=== PATIENT | male | born 1950 | race Caucasian/White ===

== ENCOUNTER 2020-04-16 11:04 | Emergency (ER) | payer MEDICARE, OTHER, SELFPAY ==
[2020-04-16 11:10] VITALS: BP 130/57; PULSE 84; RESP 18; TEMP 37.6; O2SAT 95
--- NOTE | 2020-04-16 12:03 | ECG_ITS ---
Measurements Intervals [place] Rate: 81 P: 39 KS: 194 QRS: 65 QRSD: 75 T: 56 QT: 324 QTc: 378 Interpretive Statements SINUS RHYTHM EARLY PRECORDIAL R/S TRANSITION BORDERLINE ST-T WAVE ABNORMALITY- ANTEROLAT/INF LEADS BASELINE ARTIFACT- I, III, AVR, AVL BORDERLINE ECG Electronically Signed On 04-16-2020 13:02:10 [employer] by Jonh Jackson D.O.
[2020-04-16 12:05] VITALS: BP 133/59; PULSE 82; RESP 20; O2SAT 96
[2020-04-16 12:26] LABS: Add Urine Microscopic? YES; Appearance Urine Clear (Clear); Basophils Absolute Auto 0.01 K/mm3 (0.00-0.10); Basophils Percent Auto 0.2 % (0.0-1.0); Bilirubin Urine Negative (Negative); Blood Urine Negative (Negative); Color Urine Yellow (Yellow); Eosinophils Absolute Auto 0.03 K/mm3 (0.02-0.50); Eosinophils Percent Auto 0.6 % (1.0-6.0); Glucose Urine UA Negative (Negative); Hematocrit 41.3 % (37.0-46.0); Hemoglobin 13.2 g/dL (12.4-15.3); Immature Granulocyte Absolute 0.01 K/mm3 (0.00-0.00); Immature Granulocyte Percent A 0.2 % (0.0-0.0); Ketones Urine Trace (Negative); Leukocyte Esterase Ur Negative LEU/UL (Negative); Lymphocytes Absolute Auto 1.32 K/mm3 (1.10-4.50); Mean Corpuscular Hemoglobin 30.6 pg (27.0-31.0); Mean Corpuscular Volume 95.8 fL (78.0-102.0); Mean Platelet Volume 10.4 fl (8.7-11.0); Monocytes Absolute Auto 0.42 K/mm3 (0.10-0.90); Neutrophils Absolute Auto 3.5 K/mm3 (1.7-7.2); Nitrate Urine Negative (Negative); Platelet Count Result 161 K/mm3 (150-420); Protein Urine Negative (Negative); Red Blood Count 4.31 M/mm3 (4.70-6.10); Red Cell Distribution Width 13.8 % (11.6-14.4); Urobilinogen Urine 0.2 mg/dL (0.2-1.0); White Blood Count 5.3 K/mm3 (4.8-10.8); pH Urine 5.5 (5.0-8.0)
[2020-04-16 12:32] LABS: Bacteria Urine Trace /hpf; RBC Urine 0-2 /hpf (0-2); Squamous Epithelial Cell Urine Few /hpf (Few); WBC Urine 0-3 /hpf (0-3)
[2020-04-16 12:45] LABS: BNP 5.2 pg/mL (0-100)
[2020-04-16 12:46] LABS: Alanine Aminotransferase 52 U/L (16-63); Albumin Level 2.7 g/dL (3.4-5.0); Alkaline Phosphatase 49 U/L (46-116); Anion Gap 11 mmol/L (8-16); Aspartate Amino Transferase 44 U/L (15-37); Bilirubin,Total 0.2 mg/dL (0.00-1.00); Blood Urea Nitrogen 21 mg/dL (7-18); Calcium 8.2 mg/dL (8.5-10.1); Carbon Dioxide 23 mmol/L (21-32); Chloride 100 mmol/L (98-108); Estimated CRCL calculation 62 ml/min; Estimated Glomerular Filt Rate > 60; Glucose 68 mg/dL (70-99); Osmolality Calculated 279 mOsm/kg (285-295); Potassium 3.4 mmol/L (3.5-5.1); Sodium 134 mmol/L (136-145); Troponin I < 0.02 ng/mL (0.00-0.056)
[2020-04-16 13:15] VITALS: BP 137/60; PULSE 85; RESP 20; O2SAT 95
--- NOTE | 2020-04-16 13:47 | ED.WEAKNESS ---
HPI - Weakness General Chief complaint: Weakness Stated complaint: Ambulance Source: patient Mode of arrival: EMS Limitations: no limitations History of Present Illness HPI Narrative: The patient came in with weakness he had recently been in the [facility] for cellulitis of his right lower leg. He was given antibiotics for this he was sent home with doxycycline and Keflex. He was sent home on April 09 he is now finished with his antibiotics. He has had loose stools for several days. He has continued to take his hydrochlorothiazide in spite of loose stools MD Complaint: generalized weakness Onset (ago): day(s) Location: generalized Migration: none Severity: moderate Relieving factors: none Exacerbating factors: none Context: new medication Associated symptoms: other (fatigue) Related Data Home Medications Medication Instructions Recorded Confirmed amlodipine 2.5 mg PO DAILY 04/16/20 04/16/20 baclofen 10 mg PO TID 04/16/20 04/16/20 cetirizine 10 mg PO DAILY 04/16/20 04/16/20 gabapentin 900 mg PO TID 04/16/20 04/16/20 glipizide 5 mg PO BID 04/16/20 04/16/20 hydrochlorothiazide 25 mg PO DAILY 04/16/20 04/16/20 levothyroxine 150 mcg PO DAILY 04/16/20 04/16/20 meloxicam 15 mg PO DAILY 04/16/20 04/16/20 metformin 1,000 mg PO QPM 04/16/20 04/16/20 nystatin 1 applic TOPICAL TID 04/16/20 04/16/20 omeprazole 20 mg PO DAILY 04/16/20 04/16/20 oxybutynin chloride 10 mg PO DAILY 04/16/20 04/16/20 ropinirole 2 mg PO HS 04/16/20 04/16/20 rosuvastatin 10 mg PO DAILY 04/16/20 04/16/20 tramadol 50 mg PO Q6H PRN 04/16/20 04/16/20 Allergies Allergy/AdvReac Type Severity Reaction Status Date / Time No Known Allergies Allergy Verified 04/16/20 11:12 Review of Systems Constitutional: Comments: fatigue Gastrointestinal: Comments: multiple loose stools Exam Narrative: Exam Narrative: Alert oriented no acute distress Const: Orientation/consciousness: patient oriented x3 HENMT: Head: normal to inspection Eyes: Conjunctivae: conjunctivae normal EOM: EOMs intact bilaterally Neck: Neck: normal visual inspection Chest: Chest palpation & inspection: normal inspection of the chest Resp: Effort & Inspection: normal respiratory effort Auscultation: clear to auscultation bilaterally Cardio: Rate: regular rate Rhythm: regular rhythm Other: At first he seemed to be irregular, EKG showed Sinus rythum GI: GI Palp: Yes Soft to palpation Percussion: Yes other (non tender ) Skin: General skin exam: normal color Neuro: General: patient oriented x3 and moves all extremities Extrem: General: normal to inspection Other: cellulitis has cleared Psych: Mental Status: mental status grossly normal Thought content: Yes Normal thought content present Course Course Emergency Course: Labs were drawn, a urine was sent. EKG was normal. His potassium was 3.4. He was given 40 mEq of potassium and Flagyl 500 mg p.o. We will send him home with a prescription for Flagyl 500 mg 3 times a day I have asked him to stop his hydrochlorothiazide for the next 2 weeks. We will make the prescription for Flagyl good for 2 weeks we have asked him to decrease his glipizide for the next 2 weeks to 1/2 tablet twice a day. I will ask him to follow [facility] within the next week. Vital Signs Vital signs: Vital Signs Temperature 37.6 C H 04/16/20 11:10 Pulse Rate 84 04/16/20 11:10 Respiratory Rate 18 04/16/20 11:10 Blood Pressure 130/57 L 04/16/20 11:10 Pulse Oximetry 95 04/16/20 11:10 Temperature 37.6 C H 04/16/20 11:10 Pulse Rate 84 04/16/20 11:10 Respiratory Rate 18 04/16/20 11:10 Blood Pressure 130/57 L 04/16/20 11:10 Pulse Oximetry 95 04/16/20 11:10 MDM - Weakness MDM Narrative Medical decision making narrative: I was concerned he might have C Diff. We also ruled out an UT and acute kidney injury. Lab Data Result diagrams: 04/16/20 12:22 04/16/20 12:22 L
[2020-04-16 14:15] VITALS: BP 123/53; PULSE 82; RESP 20; O2SAT 96
[2020-04-16] MEDS: POTASSIUM CHLORIDE 20 MEQ TABLET 40 MEQ PO (14:25)
[2020-04-16] MEDS: metroNIDAZOLE 250 MG TABLET 500 MG PO (14:26)
== END 2020-04-16 15:15 | disposition home or self-care (01) ==
PROVIDERS: Emergency Provider Emergency Medicine
DX: A04.72 Enterocolitis due to Clostridium difficile, not specified as recurrent (principal)
CPT/HCPCS: 36415; 80053; 81001; 83880; 84484; 85025; 87324; 93005; 99283; 99284; A9270

== ENCOUNTER 2024-05-25 14:28 | Outpatient (CLI) | payer MEDICARE, SELFPAY ==
--- OUTSIDE RECORDS SUMMARY | 2024-05-25 14:34 | XMS_ITS | Continuity of Care Document ---
Author Name [facility] Organization [facility] Care Team Providers Care Hematology Oncology Consultant Name Role Phone [facility] Unavailable Unavailable Problems Combined list of problems from Department of Defense and Veterans Affairs facilities. It does not include entries that were removed or entered in error. Problem Status Onset Date Problem Type Date of Resolution Comments Source Benign essential hypertension Active Condition [facility] Closed fracture of distal left fibula Active Condition [facility] Diabetes mellitus Active Condition [facility] Family history of malignant neoplasm of skin (SNOMED CT 342357793) Active Condition [facility] Hypothyroidism Active Condition [facility] Low back pain Active Condition [facility] Morbid obesity Active Condition [facility] Morbid obesity (SNOMED CT 767017156) Active Condition [facility] Obstructive sleep apnea Active Condition [facility] Obstructive sleep apnea syndrome (SNOMED CT 10369864) Active Condition [facility] Osteoarthritis of hip (SNOMED CT 455791799) Active Condition [facility] Osteoarthritis of hip (SNOMED CT 199844648) Active Condition [facility] Pain in lower limb (SNOMED CT 83825833) Active Condition [facility] Psoriasis (SNOMED CT 8187120) Active Condition [facility] Restless legs (SNOMED CT 92021586) Active Condition [facility] 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 [facility] Unresolved Active Condition [facility] Unresolved Active Condition [facility] Walking disability Active Condition [facility] Diagnosis: ICD-10-CM S82.62XS Disp fx of lateral malleolus of left fibula, sequela Active Diagnosis [facility] Diagnosis: ICD-10-CM H01.009 Unspecified blepharitis unspecified eye, unspecified eyelid Active Diagnosis [facility] Diagnosis: ICD-10-CM M54.59 Other low back pain Active Diagnosis [facility] Diagnosis: ICD-10-CM Z13.5 Encounter for screening for eye and ear disorders Active Diagnosis [facility] Diagnosis: ICD-10-CM M47.26 Other spondylosis with radiculopathy, lumbar region Active Diagnosis [facility] Diagnosis: ICD-10-CM E03.9 Hypothyroidism, unspecified Active Diagnosis [facility] Diagnosis: ICD-10-CM I10 Essential (primary) hypertension Active Diagnosis [facility] Diagnosis: ICD-10-CM M54.50 Low back pain, unspecified Active Diagnosis [facility] Diagnosis: ICD-10-CM 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 Medication Details Route Status Patient Instructions Prescription Expires Prescription Number Last Dispense Date Ordering Provider Order Date Order Qty Source AMLODIPINE BESYLATE 2.5MG TAB TAKE THREE TABLETS BY MOUTH ONCE A DAY FOR HEART/BL OOD PRESSURE ORAL ACTIVE 03/04/2025 [id number] 4 DASHAWN DOUGLAS 2023 270 [facility] AMLODIPINE BESYLATE 2.5MG TAB TAKE THREE TABLETS BY MOUTH ONCE A DAY FOR HEART/BL OOD PRESSURE ORAL DISCONT INUED 10/04/2024 [id number] 4 DASHAWN DOUGLAS 2023 270 [facility] AMLODIPINE BESYLATE 2.5MG TAB TAKE THREE TABLETS BY MOUTH ONCE A DAY FOR HEART/BL OOD PRESSURE ORAL DISCONT INUED 03/01/2024 [id number] 4 DASHAWN DOUGLAS 2022 90 [facility] CETIRIZINE HCL 10MG TAB TAKE ONE TABLET BY MOUTH ONCE A DAY ORAL ACTIVE STELLADASHAWN MCKEON 2013 [facility] DULOXETINE HCL 30MG CAP,EC TAKE ONE CAPSULE BY MOUTH ONCE A DAY FOR MUSCULOS KELETAL PAIN DO NOT ABRUPTLY DISCONTI NUE MEDICATI ON. ORAL 03/25/2024 [id number] 4 DASHAWN DOUGLAS 2022 30 [facility] DULOXETINE HCL 60MG CAP,EC TAKE ONE CAPSULE BY MOUTH ONCE A DAY FOR MUSCULOS KELETAL PAIN DO NOT ABRUPTLY DISCONTI NUE MEDICATI ON. ORAL ACTIVE 03/01/2025 [id number] 4 JACKIE PENA 2023 90 [facility] DULOXETINE HCL 60MG CAP,EC TAKE ONE CAPSULE BY MOUTH ONCE A DAY FOR MUSCULOS KELETAL PAIN DO NOT ABRUPTLY DISCONTI NUE MEDICATI ON. ORAL DISCONT INUED 06/11/2024 [id number] JACKIE PENA 2022 90 [facility] EYELID CLEANSER,EY E SCRUB PAD USE/APPL Y PAD BOTH EYES ONCE A DAY FOR EYELID HYGIENE *EXTERNA L USE ONLY* REMOVE CONTACT LENSES PRIOR TO USE. DO NOT TOUCH EYE DIRECTLY . OPHTHA LMIC ACTIVE 02/04/2025 [id number] 4 JOSHUA JACKSON 2023 30 [facility] GABAPENTIN 300MG CAP TAKE THREE CAPSULES BY MOUTH THREE TIMES A DAY FOR PAIN ORAL ACTIVE 08/16/2024 [id number] 4 DASHAWN DOUGLAS 2023 810 [facility] GABAPENTIN 300MG CAP TAKE THREE CAPSULES BY MOUTH THREE TIMES A DAY FOR PAIN ORAL DISCONT INUED 01/26/2024 [id number] 3 DASHAWN DOUGLAS 2022 810 [facility] GLIPIZIDE 5MG TAB TAKE ONE TABLET BY MOUTH TWO TIMES A DAY BEFORE MEALS FOR DIABETES . TAKE 30 MINUTES BEFORE EATING. ORAL 04/07/2024 [id number] 4 DASHAWN DOUGLAS 2022 180 [facility] HYDROCHLORO THIAZIDE 25MG TAB TAKE ONE TABLET BY MOUTH ONCE A DAY FOR BLOOD PRESSURE ORAL ACTIVE 12/21/2024 [id number] 4 DASHAWN DOUGLAS 2023 90 [facility] HYDROCHLORO THIAZIDE 25MG TAB TAKE ONE TABLET BY MOUTH ONCE A DAY FOR BLOOD PRESSURE ORAL DISCONT INUED 11/05/2023 [id number] 4 DASHAWN DOUGLAS 2022 90 [facility] LEVOTHYROXI NE NA 125MCG TAB (SYNTHROID) TAKE ONE TABLET BY MOUTH EVERY MORNING BEFORE A MEAL FOR HYPOTHYR OIDISM FOR THYROID. TAKE 30 MINUTES BEFORE FOOD. TAKE SEPARATE LY FROM ALL OTHER MEDICATI ONS. ORAL DISCONT INUED 12/01/2023 [id number] 4 DASHAWN DOUGLAS 2023 14 [facility] LEVOTHYROXI NE NA 125MCG TAB (SYNTHROID) TAKE ONE TABLET BY MOUTH EVERY MORNING BEFORE A MEAL FOR HYPOTHYR OIDISM FOR THYROID. TAKE 30 MINUTES BEFORE FOOD. TAKE SEPARATE LY FROM ALL OTHER MEDICATI ONS. ORAL DISCONT INUED 06/18/2024 [id number] 4 DASHAWN DOUGLAS 2023 30 [facility] LEVOTHYROXI NE NA 125MCG TAB (SYNTHROID) TAKE ONE TABLET BY MOUTH EVERY MORNING BEFORE A MEAL FOR HYPOTHYR OIDISM FOR THYROID. TAKE 30 MINUTES BEFORE FOOD. TAKE SEPARATE LY FROM ALL OTHER MEDICATI ONS. ORAL 01/20/2024 [id number] 4 DASHAWN DOUGLAS 2023 14 [facility] LIDOCAINE 5% PATCH APPLY 1 PATCH TO SKIN SITE ONCE A DAY APPLY PATCH AND PRESS FIRMLY FOR 10-15 SECONDS. KEEP ON FOR 12 HOURS THEN REMOVE PATCH FOR 12 HOURS. APPLY TO LOW BACK APPLY PATCH AND PRESS FIRMLY FOR 10-15 SECONDS. KEEP ON FOR 12 HOURS THEN REMOVE PATCH FOR 12 HOURS. APPLY TO LOW BACK TRANSD ERMAL ACTIVE 06/11/2024 [id number] 3 JACKIE PENA 2022 30 [facility] MELOXICAM 15MG TAB TAKE ONE TABLET BY MOUTH ONCE A DAY WITH FOOD FOR PAIN ORAL DISCONT INUED 09/15/2023 [id number] 3 DASHAWN DOUGLAS 2022 90 [facility] MELOXICAM 15MG TAB TAKE ONE TABLET BY MOUTH ONCE A DAY WITH FOOD FOR PAIN ORAL 05/24/2024 [id number] 4 DASHAWN DOUGLAS 2023 90 [facility] METFORMIN HCL 500MG 24HR TAB,SA TAKE TWO TABLETS BY MOUTH ONCE A DAY WITH EVENING MEAL ORAL ACTIVE 12/21/2024 [id number] 4 DASHAWN DOUGLAS 2023 60 [facility] METFORMIN HCL 500MG 24HR TAB,SA TAKE TWO TABLETS BY MOUTH ONCE A DAY WITH EVENING MEAL ORAL DISCONT INUED 03/01/2024 [id number] 4 DASHAWN DOUGLAS 2022 180 [facility] OMEPRAZOLE 20MG CAP,EC TAKE ONE CAPSULE BY MOUTH EVERY MORNING BEFORE A MEAL TO LOWER STOMACH ACID. TAKE 30 MINUTES PRIOR TO FOOD. ORAL ACTIVE 12/21/2024 [id number] 4 DASHAWN DOUGLAS 2023 90 [facility] OMEPRAZOLE 20MG CAP,EC TAKE ONE CAPSULE BY MOUTH EVERY MORNING BEFORE A MEAL TO LOWER STOMACH ACID. TAKE 30 MINUTES PRIOR TO FOOD. ORAL DISCONT INUED 09/15/2023 [id number] 4 DASHAWN DOUGLAS MIKE 2022 90 [facility] OXYBUTYNIN CL 10MG TAB,SA TAKE ONE TABLET BY MOUTH ONCE A DAY FOR BLADDER. SWALLOW WHOLE, DO NOT CRUSH OR CHEW. ORAL ACTIVE 07/14/2024 [id number] 4 STELLADASHAWN MCKEON 2023 30 [facility] OXYBUTYNIN CL 10MG TAB,SA TAKE ONE TABLET BY MOUTH ONCE A DAY FOR BLADDER. SWALLOW WHOLE, DO NOT CRUSH OR CHEW. ORAL DISCONT INUED 12/12/2023 [id number] 3 STELLADASHAWN MCKEON 2022 30 [facility] ROPINIROLE HCL 2MG TAB TAKE ONE TABLET BY MOUTH AT BEDTIME ORAL ACTIVE 12/21/2024 [id number] 4 DOUGLASDASHAWN MCKEON 2023 90 [facility] ROPINIROLE HCL 2MG TAB TAKE ONE TABLET BY MOUTH AT BEDTIME ORAL DISCONT INUED 11/05/2023 [id number] 4 DASHAWN DOUGLAS MIKE 2022 90 [facility] TRAMADOL HCL 50MG TAB TAKE 1 TABLET BY MOUTH FOUR TIMES A DAY NEEDED FOR PAIN FOR PAIN ORAL DISCONT INUED 09/01/2023 [id number] 3 Kristy CADENA [facility] 2022 120 [facility] Allergies, Adverse Reactions, Alerts Combined list of allergies from Department of Defense and Veterans Affairs facilities. It does not include entries that were removed or entered in error. Substance Category Reaction Severity Reaction type Status Date Reported Comments Source LIPITOR Propensity to adverse reactions to drug (finding) Muscle pain active 6 [facility] METFORMIN Propensity to adverse reactions to drug (finding) Diarrhea active 3 [facility] PRAVASTATIN Propensity to adverse reactions to drug (finding) Cramp active 6 [facility] Immunizations Combined list of available immunizations from the Department of Defense and Veterans Affairs facilities. Immunization Series Date Given Administered By Site Reaction Lot Number CVX Code Drug Seismograph Operator Status Comments Source INFLUENZA, UNSPECIFIED FORMULATION 2021 88 complet ed [facility] ZOSTER RECOMBINANT 2 2020 187 complet ed [facility] ZOSTER RECOMBINANT 1 2020 187 complet ed [facility] PNEUMOCOCCAL POLYSACCHARID E PPV23 2015 33 complet ed [facility] PNEUMOCOCCAL CONJUGATE PCV 13 2014 133 complet ed [facility] TDAP 2014 115 complet ed Right Deltoid [facility] ZOSTER LIVE 2012 121 complet ed [facility] Results Combined list of recent chemistry, hematology and other laboratory results from Department of Defense and Veterans Affairs, ranging from 15 months to all on record, depending upon the facility. Order Name Results Value Reference Range Date Interpretation Specimen Comments Source URINALYSI S (STL) COLOR OF URINE Yellow 03/01 Specimen Type: URINE No comment entered. Ordering Provider: JULIO CÉSAR DOUGLAS Report Released Date/Time: Mar 01, 2023 07:56 AM Reporting Lab: [facility] [address] Performing Lab: [facility] [id number] [place] [address] DIVISION URINALYSI S (STL) BILIRUBIN. TOTAL [PRESENCE] IN URINE BY TEST STRIP Negativ emg/dL 03/01 Specimen Type: URINE No comment entered. Ordering Provider: JULIO CÉSAR DOUGLAS Report Released Date/Time: Mar 01, 2023 07:56 AM Reporting Lab: [facility] [address] Performing Lab: [facility] [id number] [place] [address] [facility] URINALYSI S (STL) PH OF URINE BY TEST STRIP 6.0 5.0 - 8.0 03/01 Specimen Type: URINE No comment entered. Ordering Provider: JULIO CÉSAR DOUGLAS Report Released Date/Time: Mar 01, 2023 07:56 AM Reporting Lab: [facility] [place] [address] Performing Lab: [facility] [facility] URINALYSI S (STL) LEUKOCYTES [#/AREA] IN URINE SEDIMENT BY MICROSCOPY HIGH POWER FIELD 2 /[HPF] 0 - 5 03/01 Specimen Type: URINE No comment entered. Ordering Provider: JULIO CÉSAR DOUGLAS Report Released Date/Time: Mar 01, 2023 07:56 AM Reporting Lab: [facility] [place] [address] Performing Lab: [facility] DIVISION URINALYSI S (STL) ERYTHROCYT ES [#/VOLUME] IN URINE SEDIMENT BY MICROSCOPY HIGH POWER FIELD 2 /[HPF] 0 - 5 03/01 Specimen Type: URINE No comment entered. Ordering Provider: JULIO CÉSAR DOUGLAS Report Released Date/Time: Mar 01, 2023 07:56 AM Reporting Lab: [facility] [place] [address] Performing Lab: [facility] DIV[facility] URINALYSI S (STL) APPEARANCE OF URINE Clear 03/01 Specimen Type: URINE No comment entered. Ordering Provider: JULIO CÉSAR DOUGLAS Report Released Date/Time: Mar 01, 2023 07:56 AM Reporting Lab: [facility] [place] [address] Performing Lab: [facility] DIVISION URINALYSI S (STL) NITRITE [PRESENCE] IN URINE BY TEST STRIP Negativ emg/dL 03/01 Specimen Type: URINE No comment entered. Ordering Provider: JULIO CÉSAR DOUGLAS Report Released Date/Time: Mar 01, 2023 07:56 AM Reporting Lab: [facility] [place] [address] Performing Lab: [facility] [facility] URINALYSI S (STL) EPITHELIAL CELLS [#/AREA] IN URINE SEDIMENT BY MICROSCOPY LOW POWER FIELD <1/[HPF ] 0 - 5 03/01 Specimen Type: URINE No comment entered. Ordering Provider: JULIO CÉSAR DOUGLAS Report Released Date/Time: Mar 01, 2023 07:56 AM Reporting Lab: [facility] [place] [address] Performing Lab: [facility] DIVISION URINALYSI S (STL) MUCUS [PRESENCE] IN URINE SEDIMENT BY LIGHT MICROSCOPY OCC/[LP F] 03/01 Specimen Type: URINE No comment entered. Ordering Provider: JULIO CÉSAR DOUGLAS Report Released Date/Time: Mar 01, 2023 07:56 AM Reporting Lab: [facility] [place] [address] Performing Lab: [facility] DIVISION URINALYSI S (STL) GLUCOSE [MASS/VOLU ME] IN URINE BY TEST STRIP Normalm g/dL 03/01 Specimen Type: URINE No comment entered. Ordering Provider: JULIO CÉSAR DOUGLAS Report Released Date/Time: Mar 01, 2023 07:56 AM Reporting Lab: [facility] [place] [address] Performing Lab: [facility] DIVISION URINALYSI S (STL) PROTEIN [MASS/VOLU ME] IN URINE BY TEST STRIP 20 mg/dL - 20 03/01 H Specimen Type: URINE No comment entered. Ordering Provider: JULIO CÉSAR DOUGLAS Report Released Date/Time: Mar 01, 2023 07:56 AM Reporting Lab: [facility] [place] [address] Performing Lab: [facility] DIVISION URINALYSI S (STL) URN.UROBIL INOGEN Normalm g/dL 03/01 Specimen Type: URINE No comment entered. Ordering Provider: JULIO CÉSAR DOUGLAS Report Released Date/Time: Mar 01, 2023 07:56 AM Reporting Lab: [facility] [place] [address] Performing Lab: [facility] DIVISION URINALYSI S (STL) HEMOGLOBIN [MASS/VOLU ME] IN URINE BY TEST STRIP Negativ emg/dL 03/01 Specimen Type: URINE No comment entered. Ordering Provider: JULIO CÉSAR DOUGLAS Report Released Date/Time: Mar 01, 2023 07:56 AM Reporting Lab: [facility] [place] [address] Performing Lab: [facility] DIVISION URINALYSI S (STL) KETONES [MASS/VOLU ME] IN URINE BY TEST STRIP Negativ emg/dL 03/01 Specimen Type: URINE No comment entered. Ordering Provider: JULIO CÉSAR DOUGLAS Report Released Date/Time: Mar 01, 2023 07:56 AM Reporting Lab: [facility] [place] [address] Performing Lab: [facility] DIVISION URINALYSI S (STL) URN.LEUK.E ST. Negativ emg/dL 03/01 Specimen Type: URINE No comment entered. Ordering Provider: JULIO CÉSAR DOUGLAS Report Released Date/Time: Mar 01, 2023 07:56 AM Reporting Lab: [facility] [place] [address] Performing Lab: [facility] URINALYSI S (STL) SPECIFIC GRAVITY OF URINE 1.027 1.005 - 1.029 03/01 Specimen Type: URINE No comment entered. Ordering Provider: JULIO CÉSAR DOUGLAS Report Released Date/Time: Mar 01, 2023 07:56 AM Reporting Lab: [facility] [place] [address] Performing Lab: [facility] METHADONE PANEL (STL) ETHANOL [MASS/VOLU ME] IN URINE Negativ emg/dL 0 - 20 03/01 Specimen Type: URINE Comment: The cut-off value for this test was laboratory developed and its performance characteris tics confirmed by the [facility] laboratory thru method comparison with reference laboratory and medication chart review. The laboratory is regulated under CLIA as qualified to perform high-comple xity testing. This test is used for clinical purposes in conjunction with other laboratory tests. Ordering Provider: JULIO CÉSAR DOUGLAS Report Released Date/Time: Mar 01, 2023 07:56 AM Reporting Lab: [facility] [place] [address] Performing Lab: [facility] METHADONE PANEL (STL) AMPHETAMIN E [PRESENCE] IN URINE BY SCREEN METHOD Negativ eng/mL 03/01 Specimen Type: URINE Comment: The cut-off value for this test was laboratory developed and its performance characteris tics confirmed by the [facility] laboratory thru method comparison with reference laboratory and medication chart review. The laboratory is regulated under CLIA as qualified to perform high-comple xity testing. This test is used for clinical purposes in conjunction with other laboratory tests. Ordering Provider: JULIO CÉSAR DOUGLAS Report Released Date/Time: Mar 01, 2023 07:56 AM Reporting Lab: [facility] [place] [address] Performing Lab: [facility] METHADONE PANEL (STL) BENZOYLECG ONINE [PRESENCE] IN URINE Negativ eng/mL 03/01 Specimen Type: URINE Comment: The cut-off value for this test was laboratory developed and its performance characteris tics confirmed by the [facility] laboratory thru method comparison with reference laboratory and medication chart review. The laboratory is regulated under CLIA as qualified to perform high-comple xity testing. This test is used for clinical purposes in conjunction with other laboratory tests. Ordering Provider: JULIO CÉSAR DOUGLAS Report Released Date/Time: Mar 01, 2023 07:56 AM Reporting Lab: [facility] [place] [address] Performing Lab: [facility] METHADONE PANEL (STL) BENZODIAZE PINES [PRESENCE] IN URINE BY SCREEN METHOD Negativ eng/mL 03/01 Specimen Type: URINE Comment: The cut-off value for this test was laboratory developed and its performance characteris tics confirmed by the [facility] laboratory thru method comparison with reference laboratory and medication chart review. The laboratory is regulated under CLIA as qualified to perform high-comple xity testing. This test is used for clinical purposes in conjunction with other laboratory tests. Ordering Provider: JULIO CÉSAR DOUGLAS Report Released Date/Time: Mar 01, 2023 07:56 AM Reporting Lab: [facility] [place] [id number] Performing Lab: [facility] [place] [id number] [place] [address] METHADONE PANEL (STL) CANNABINOI DS [PRESENCE] IN URINE BY SCREEN METHOD Negativ eng/mL 03/01 Specimen Type: URINE Comment: The cut-off value for this test was laboratory developed and its performance characteris tics confirmed by the [facility] laboratory thru method comparison with reference laboratory and medication chart review. The laboratory is regulated under CLIA as qualified to perform high-comple xity testing. This test is used for clinical purposes in conjunction with other laboratory tests. Ordering Provider: JULIO CÉSAR DOUGLAS Report Released Date/Time: Mar 01, 2023 07:56 AM Reporting Lab: [facility] [place] [address] Performing Lab: [facility] METHADONE PANEL (STL) METHADONE [PRESENCE] IN URINE Negativ eng/mL 03/01 Specimen Type: URINE Comment: The cut-off value for this test was laboratory developed and its performance characteris tics confirmed by the [facility] laboratory thru method comparison with reference laboratory and medication chart review. The laboratory is regulated under CLIA as qualified to perform high-comple xity testing. This test is used for clinical purposes in conjunction with other laboratory tests. Ordering Provider: JULIO CÉSAR DOUGLAS Report Released Date/Time: Mar 01, 2023 07:56 AM Reporting Lab: [facility] [place] [address] Performing Lab: [facility] [place] [id number] [place] [address] METHADONE PANEL (STL) OPIATES [PRESENCE] IN URINE BY SCREEN METHOD >1000-P OSng/mL 03/01 H Specimen Type: URINE Comment: The cut-off value for this test was laboratory developed and its performance characteris tics confirmed by the [facility] laboratory thru method comparison with reference laboratory and medication chart review. The laboratory is regulated under CLIA as qualified to perform high-comple xity testing. This test is used for clinical purposes in conjunction with other laboratory tests. Ordering Provider: JULIO CÉSAR DOUGLAS Report Released Date/Time: Mar 01, 2023 07:56 AM Reporting Lab: [facility] [phone] Performing Lab: [facility] [address] METHADONE PANEL (STL) CREATININE [MASS/VOLU ME] IN URINE 166.7 mg/dL 63.0 - 166.0 03/01 H Specimen Type: URINE Comment: The cut-off value for this test was laboratory developed and its performance characteris tics confirmed by the [facility] laboratory thru method comparison with reference laboratory and medication chart review. The laboratory is regulated under CLIA as qualified to perform high-comple xity testing. This test is used for clinical purposes in conjunction with other laboratory tests. Ordering Provider: JULIO CÉSAR DOUGLAS Report Released Date/Time: Mar 01, 2023 07:56 AM Reporting Lab: [facility] [address] Performing Lab: [facility] [id number] [place] [address] METHADONE PANEL (STL) OXYCODONE CUTOFF [MASS/VOLU ME] IN URINE FOR SCREEN METHOD Negativ eng/mL 03/01 Specimen Type: URINE Comment: The cut-off value for this test was laboratory developed and its performance characteris tics confirmed by the [facility] laboratory thru method comparison with reference laboratory and medication chart review. The laboratory is regulated under CLIA as qualified to perform high-comple xity testing. This test is used for clinical purposes in conjunction with other laboratory tests. Ordering Provider: JULIO CÉSAR DOUGLAS Report Released Date/Time: Mar 01, 2023 07:56 AM Reporting Lab: [facility] [place] [address] Performing Lab: [facility] METHADONE PANEL (STL) BUPRENORPH INE [PRESENCE] IN URINE Negativ eng/mL 03/01 Specimen Type: URINE Comment: The cut-off value for this test was laboratory developed and its performance characteris tics confirmed by the [facility] laboratory thru method comparison with reference laboratory and medication chart review. The laboratory is regulated under CLIA as qualified to perform high-comple xity testing. This test is used for clinical purposes in conjunction with other laboratory tests. Ordering Provider: JULIO CÉSAR DOUGLAS Report Released Date/Time: Mar 01, 2023 07:56 AM Reporting Lab: [facility] [place] [address] Performing Lab: [facility] METHADONE PANEL (STL) FENTANYL [PRESENCE] IN URINE Negativ eng/mL 03/01 Specimen Type: URINE Comment: The cut-off value for this test was laboratory developed and its performance characteris tics confirmed by the [facility] laboratory thru method comparison with reference laboratory and medication chart review. The laboratory is regulated under CLIA as qualified to perform high-comple xity testing. This test is used for clinical purposes in conjunction with other laboratory tests. Ordering Provider: JULIO CÉSAR DOUGLAS Report Released Date/Time: Mar 01, 2023 07:56 AM Reporting Lab: [facility] [place] [address] Performing Lab: [facility] DIVISION PROST. SPECIFIC AG.(PB-ST L) PROSTATE SPECIFIC AG [MASS/VOLU ME] IN SERUM OR PLASMA 0.158 ng/mL 0.000 - 4.000 03/01 Specimen Type: SERUM Comment: The listed sex of this patient may not be a typical indication for this test. Therefore, reference ranges or interpretiv e criteria listed may not be valid. Clinical correlation suggested. Ordering Provider: JULIO CÉSAR DOUGLAS Report Released Date/Time: Mar 01, 2023 07:56 AM Reporting Lab: [facility] [place] [address] Performing Lab: [facility] LIPID PANEL (STL) CHOLESTERO L [MASS/VOLU ME] IN SERUM OR PLASMA 123 mg/dL 0 - 200 03/01 Specimen Type: PLASMA Comment: No hemolysis noted. Ordering Provider: JULIO CÉSAR DOUGLAS Report Released Date/Time: Mar 01, 2023 07:56 AM Reporting Lab: [facility] [place] [address] Performing Lab: [facility] LIPID PANEL (STL) TRIGLYCERI DE [MASS/VOLU ME] IN SERUM OR PLASMA 185 mg/dL 0 - 150 03/01 H Specimen Type: PLASMA Comment: No hemolysis noted. Ordering Provider: JULIO CÉSAR DOUGLAS Report Released Date/Time: Mar 01, 2023 07:56 AM Reporting Lab: [facility] [place] [address] Performing Lab: [facility] LIPID PANEL (STL) CHOLESTERO L IN LDL [MASS/VOLU ME] IN SERUM OR PLASMA BY CALCULATIO N 41 mg/dL 03/01 Specimen Type: PLASMA Comment: No hemolysis noted. Ordering Provider: JULIO CÉSAR DOUGLAS Report Released Date/Time: Mar 01, 2023 07:56 AM Reporting Lab: [facility] [place] [address] Performing Lab: [facility] LIPID PANEL (STL) CHOLESTERO L IN HDL [MASS/VOLU ME] IN SERUM OR PLASMA 45 mg/dL 40 03/01 Specimen Type: PLASMA Comment: No hemolysis noted. Ordering Provider: JULIO CÉSAR DOUGLAS Report Released Date/Time: Mar 01, 2023 07:56 AM Reporting Lab: [facility] [place] [address] Performing Lab: [facility] DIVISION TSH (WI-PB-ST L) THYROTROPI N [UNITS/VOL UME] IN SERUM OR PLASMA 67.774 u[IU]/m L 0.470 - 5.000 03/01 H Specimen Type: SERUM Comment: The listed sex of this patient may not be a typical indication for this test. Therefore, reference ranges or interpretiv e criteria listed may not be valid. Clinical correlation suggested. Ordering Provider: JULIO CÉSAR DOUGLAS Report Released Date/Time: Mar 01, 2023 07:56 AM Reporting Lab: [facility] [place] [address] Performing Lab: [facility] DIVISION TSH (MA-PB-ST L) THYROXINE (T4) FREE [MASS/VOLU ME] IN SERUM OR PLASMA 0.54 ng/mL 0.70 - 1.48 03/01 L Specimen Type: SERUM Comment: The listed sex of this patient may not be a typical indication for this test. Therefore, reference ranges or interpretiv e criteria listed may not be valid. Clinical correlation suggested. Ordering Provider: JULIO CÉSAR DOUGLAS Report Released Date/Time: Mar 01, 2023 07:56 AM Reporting Lab: [facility] [place] [address] Performing Lab: [facility] DIVISION HGA1C HEMOGLOBIN A1C/HEMOGL OBIN.TOTAL IN BLOOD 6.4 4.0 - 6.0 03/01 H Specimen Type: BLOOD No comment entered. Ordering Provider: JULIO CÉSAR DOUGLAS Report Released Date/Time: Mar 01, 2023 07:56 AM Reporting Lab: [facility] [place] [address] Performing Lab: [facility] DIVISION CBC LEUKOCYTES [#/VOLUME] IN BLOOD BY AUTOMATED COUNT 9.4 10*3/uL 3.6 - 11.2 03/01 Specimen Type: BLOOD No comment entered. Ordering Provider: JULIO CÉSAR DOUGLAS Report Released Date/Time: Mar 01, 2023 07:56 AM Reporting Lab: [facility] [place] [address] Performing Lab: [facility] DIVISION CBC ERYTHROCYT ES [#/VOLUME] IN BLOOD BY AUTOMATED COUNT 4.45 10*6/uL 4.10 - 5.70 03/01 Specimen Type: BLOOD No comment entered. Ordering Provider: JULIO CÉSAR DOUGLAS Report Released Date/Time: Mar 01, 2023 07:56 AM Reporting Lab: [facility] [place] [address] Performing Lab: [facility] DIVISION CBC HEMOGLOBIN [MASS/VOLU ME] IN BLOOD 14.2 g/dL 13.1 - 16.8 03/01 Specimen Type: BLOOD No comment entered. Ordering Provider: JULIO CÉSAR DOUGLAS Report Released Date/Time: Mar 01, 2023 07:56 AM Reporting Lab: [facility] [place] [address] Performing Lab: [facility] DIVISION CBC HEMATOCRIT [VOLUME FRACTION] OF BLOOD 42.2 38.2 - 48.4 03/01 Specimen Type: BLOOD No comment entered. Ordering Provider: JULIO CÉSAR DOUGLAS Report Released Date/Time: Mar 01, 2023 07:56 AM Reporting Lab: [facility] [place] [address] Performing Lab: [facility] DIVISION CBC MCV [ENTITIC VOLUME] BY AUTOMATED COUNT 94.8 fL 80.0 - 100.0 03/01 Specimen Type: BLOOD No comment entered. Ordering Provider: JULIO CÉSAR DOUGLAS Report Released Date/Time: Mar 01, 2023 07:56 AM Reporting Lab: [facility] [place] [address] Performing Lab: [facility] DIVISION CBC MCH [ENTITIC MASS] BY AUTOMATED COUNT 31.9 pg 27.0 - 34.0 03/01 Specimen Type: BLOOD No comment entered. Ordering Provider: JULIO CÉSAR DOUGLAS Report Released Date/Time: Mar 01, 2023 07:56 AM Reporting Lab: [facility] [place] [address] Performing Lab: [facility] DIVISION CBC MCHC [MASS/VOLU ME] BY AUTOMATED COUNT 33.6 g/dL 33.0 - 36.0 03/01 Specimen Type: BLOOD No comment entered. Ordering Provider: JULIO CÉSAR DOUGLAS Report Released Date/Time: Mar 01, 2023 07:56 AM Reporting Lab: [facility] [place] [address] Performing Lab: [facility] DIVISION CBC PLATELETS [#/VOLUME] IN BLOOD BY AUTOMATED COUNT 227 10*3/uL 150 - 400 03/01 Specimen Type: BLOOD No comment entered. Ordering Provider: JULIO CÉSAR DOUGLAS Report Released Date/Time: Mar 01, 2023 07:56 AM Reporting Lab: [facility] [place] [address] Performing Lab: [facility] DIVISION CBC PLATELET MEAN VOLUME [ENTITIC VOLUME] IN BLOOD BY AUTOMATED COUNT 9.5 fL 7.5 - 11.2 03/01 Specimen Type: BLOOD No comment entered. Ordering Provider: JULIO CÉSAR DOUGLAS Report Released Date/Time: Mar 01, 2023 07:56 AM Reporting Lab: [facility] [place] [address] Performing Lab: [facility] DIVISION CBC ERYTHROCYT E DISTRIBUTI ON WIDTH [RATIO] BY AUTOMATED COUNT 13.5 11.8 - 15.1 03/01 Specimen Type: BLOOD No comment entered. Ordering Provider: JULIO CÉSAR DOUGLAS Report Released Date/Time: Mar 01, 2023 07:56 AM Reporting Lab: [facility] [place] [address] Performing Lab: [facility] DIVISION CBC LYMPHOCYTE S/100 LEUKOCYTES IN BLOOD BY AUTOMATED COUNT 28 03/01 Specimen Type: BLOOD No comment entered. Ordering Provider: JULIO CÉSAR DOUGLAS Report Released Date/Time: Mar 01, 2023 07:56 AM Reporting Lab: [facility] [place] [address] Performing Lab: [facility] DIVISION CBC MONOCYTES/ 100 LEUKOCYTES IN BLOOD BY AUTOMATED COUNT 6 03/01 Specimen Type: BLOOD No comment entered. Ordering Provider: JULIO CÉSAR DOUGLAS Report Released Date/Time: Mar 01, 2023 07:56 AM Reporting Lab: [facility] [place] [address] Performing Lab: [facility] DIVISION CBC NEUTROPHIL S/100 LEUKOCYTES IN BLOOD BY AUTOMATED COUNT 60 03/01 Specimen Type: BLOOD No comment entered. Ordering Provider: JULIO CÉSAR DOUGLAS Report Released Date/Time: Mar 01, 2023 07:56 AM Reporting Lab: [facility] [place] [address] Performing Lab: [facility] DIVISION CBC EOSINOPHIL S/100 LEUKOCYTES IN BLOOD BY AUTOMATED COUNT 6 03/01 Specimen Type: BLOOD No comment entered. Ordering Provider: JULIO CÉSAR DOUGLAS Report Released Date/Time: Mar 01, 2023 07:56 AM Reporting Lab: [facility] [place] [address] Performing Lab: [facility] DIVISION CBC BASOPHILS/ 100 LEUKOCYTES IN BLOOD BY AUTOMATED COUNT 1 03/01 Specimen Type: BLOOD No comment entered. Ordering Provider: JULIO CÉSAR DOUGLAS Report Released Date/Time: Mar 01, 2023 07:56 AM Reporting Lab: [facility] [place] [address] Performing Lab: [facility] [place] [id number] DIVISION CBC LYMPHOCYTE S [#/VOLUME] IN BLOOD BY AUTOMATED COUNT 2.57 10*3/uL 0.77 - 4.50 03/01 Specimen Type: BLOOD No comment entered. Ordering Provider: JULIO CÉSAR DOUGLAS Report Released Date/Time: Mar 01, 2023 07:56 AM Reporting Lab: [facility] [place] [address] Performing Lab: [facility] DIVISION CBC MONOCYTES [#/VOLUME] IN BLOOD BY AUTOMATED COUNT 0.53 10*3/uL 0.19 - 1.50 03/01 Specimen Type: BLOOD No comment entered. Ordering Provider: JULIO CÉSAR DOUGLAS Report Released Date/Time: Mar 01, 2023 07:56 AM Reporting Lab: [facility] [place] [address] Performing Lab: [facility] DIVISION CBC NEUTROPHIL S [#/VOLUME] IN BLOOD BY AUTOMATED COUNT 5.61 10*3/uL 2.10 - 8.00 03/01 Specimen Type: BLOOD No comment entered. Ordering Provider: JULIO CÉSAR DOUGLAS Report Released Date/Time: Mar 01, 2023 07:56 AM Reporting Lab: [facility] [place] [address] Performing Lab: [facility] DIVISION CBC EOSINOPHIL S [#/VOLUME] IN BLOOD BY AUTOMATED COUNT 0.53 10*3/uL 0.00 - 0.60 03/01 Specimen Type: BLOOD No comment entered. Ordering Provider: JULIO CÉSAR DOUGLAS Report Released Date/Time: Mar 01, 2023 07:56 AM Reporting Lab: [facility] [place] [id number] Performing Lab: [facility] DIVISION CBC BASOPHILS [#/VOLUME] IN BLOOD BY AUTOMATED COUNT 0.09 10*3/uL 0.00 - 0.20 03/01 Specimen Type: BLOOD No comment entered. Ordering Provider: JULIO CÉSAR DOUGLAS Report Released Date/Time: Mar 01, 2023 07:56 AM Reporting Lab: [facility] [place] [address] Performing Lab: [facility] DIVISION COMPREHEN SIVE METABOLIC PANEL CREATININE [MASS/VOLU ME] IN SERUM OR PLASMA 1.32 mg/dL 0.70 - 1.30 03/01 H Specimen Type: PLASMA Comment: No hemolysis noted. Ordering Provider: JULIO CÉSAR DOUGLAS Report Released Date/Time: Mar 01, 2023 07:56 AM Reporting Lab: [facility] [place] [address] Performing Lab: [facility] DIVISION COMPREHEN SIVE METABOLIC PANEL UREA NITROGEN [MASS/VOLU ME] IN SERUM OR PLASMA 22.2 mg/dL 9.0 - 25.0 03/01 Specimen Type: PLASMA Comment: No hemolysis noted. Ordering Provider: JULIO CÉSAR DOUGLAS Report Released Date/Time: Mar 01, 2023 07:56 AM Reporting Lab: [facility] [place] [address] Performing Lab: [facility] DIVISION COMPREHEN SIVE METABOLIC PANEL GLUCOSE [MASS/VOLU ME] IN SERUM OR PLASMA 102 mg/dL 72 - 99 03/01 H Specimen Type: PLASMA Comment: No hemolysis noted. Ordering Provider: JULIO CÉSAR ODUGLAS Report Released Date/Time: Mar 01, 2023 07:56 AM Reporting Lab: [facility] [place] [address] Performing Lab: [facility] DIVISION COMPREHEN SIVE METABOLIC PANEL SODIUM [MOLES/VOL UME] IN SERUM OR PLASMA 141 meq/L 136 - 145 03/01 Specimen Type: PLASMA Comment: No hemolysis noted. Ordering Provider: JULIO CÉSAR DOUGLAS Report Released Date/Time: Mar 01, 2023 07:56 AM Reporting Lab: [facility] [place] [address] Performing Lab: [facility] DIVISION COMPREHEN SIVE METABOLIC PANEL POTASSIUM [MOLES/VOL UME] IN SERUM OR PLASMA 4.5 meq/L 3.5 - 5.0 03/01 Specimen Type: PLASMA Comment: No hemolysis noted. Ordering Provider: JULIO CÉSAR DOUGLAS Report Released Date/Time: Mar 01, 2023 07:56 AM Reporting Lab: [facility] [place] [address] Performing Lab: [facility] DIVISION COMPREHEN SIVE METABOLIC PANEL CHLORIDE [MOLES/VOL UME] IN SERUM OR PLASMA 104 meq/L 98 - 107 03/01 Specimen Type: PLASMA Comment: No hemolysis noted. Ordering Provider: JULIO CÉSAR DOUGLAS Report Released Date/Time: Mar 01, 2023 07:56 AM Reporting Lab: [facility] [place] [address] Performing Lab: [facility] DIVISION COMPREHEN SIVE METABOLIC PANEL CARBON DIOXIDE, TOTAL [MOLES/VOL UME] IN SERUM OR PLASMA 26 meq/L 22 - 31 03/01 Specimen Type: PLASMA Comment: No hemolysis noted. Ordering Provider: JULIO CÉSAR DOUGLAS Report Released Date/Time: Mar 01, 2023 07:56 AM Reporting Lab: [facility] [place] [address] Performing Lab: [facility] DIVISION COMPREHEN SIVE METABOLIC PANEL CALCIUM [MASS/VOLU ME] IN SERUM OR PLASMA 9.7 mg/dL 8.4 - 10.4 03/01 Specimen Type: PLASMA Comment: No hemolysis noted. Ordering Provider: JULIO CÉSAR DOUGLAS Report Released Date/Time: Mar 01, 2023 07:56 AM Reporting Lab: [facility] [place] [address] Performing Lab: [facility] DIVISION COMPREHEN SIVE METABOLIC PANEL PROTEIN [MASS/VOLU ME] IN SERUM OR PLASMA 7.1 g/dL 6.0 - 8.6 03/01 Specimen Type: PLASMA Comment: No hemolysis noted. Ordering Provider: JULIO CÉSAR DOUGLAS Report Released Date/Time: Mar 01, 2023 07:56 AM Reporting Lab: [facility] [place] [address] Performing Lab: [facility] DIVISION COMPREHEN SIVE METABOLIC PANEL ALBUMIN [MASS/VOLU ME] IN SERUM OR PLASMA 4.0 g/dL 3.4 - 5.0 03/01 Specimen Type: PLASMA Comment: No hemolysis noted. Ordering Provider: JULIO CÉSAR DOUGLAS Report Released Date/Time: Mar 01, 2023 07:56 AM Reporting Lab: [facility] [place] [id number] Performing Lab: [facility] DIVISION COMPREHEN SIVE METABOLIC PANEL BILIRUBIN. TOTAL [MASS/VOLU ME] IN SERUM OR PLASMA 0.5 mg/dL 0.2 - 1.2 03/01 Specimen Type: PLASMA Comment: No hemolysis noted. Ordering Provider: JULIO CÉSAR DOUGLAS Report Released Date/Time: Mar 01, 2023 07:56 AM Reporting Lab: [facility] [place] [address] Performing Lab: [facility] DIVISION COMPREHEN SIVE METABOLIC PANEL ALKALINE PHOSPHATAS E [ENZYMATIC ACTIVITY/V OLUME] IN SERUM OR PLASMA 64 U/L 40 - 150 03/01 Specimen Type: PLASMA Comment: No hemolysis noted. Ordering Provider: JULIO CÉSAR DOUGLAS Report Released Date/Time: Mar 01, 2023 07:56 AM Reporting Lab: [facility] [place] [address] Performing Lab: [facility] DIVISION COMPREHEN SIVE METABOLIC PANEL ASPARTATE AMINOTRANS FERASE [ENZYMATIC ACTIVITY/V OLUME] IN SERUM OR PLASMA 25 U/L 5 - 34 03/01 Specimen Type: PLASMA Comment: No hemolysis noted. Ordering Provider: JULIO CÉSAR DOUGLAS Report Released Date/Time: Mar 01, 2023 07:56 AM Reporting Lab: [facility] [place] [address] Performing Lab: [facility] DIVISION COMPREHEN SIVE METABOLIC PANEL ALANINE AMINOTRANS FERASE [ENZYMATIC ACTIVITY/V OLUME] IN SERUM OR PLASMA 22 U/L 8 - 40 03/01 Specimen Type: PLASMA Comment: No hemolysis noted. Ordering Provider: JULIO CÉSAR DOUGLAS Report Released Date/Time: Mar 01, 2023 07:56 AM Reporting Lab: [facility] [place] [address] Performing Lab: [facility] DIVISION COMPREHEN SIVE METABOLIC PANEL GLOMERULAR FILTRATION RATE/1.73 SQ M.PREDICTE D [VOLUME RATE/AREA] IN SERUM, PLASMA OR BLOOD BY CREATININE -BASED FORMULA (CKD-EPI 2020) 56.95 60 03/01 Specimen Type: PLASMA Comment: No hemolysis noted. Ordering Provider: JULIO CÉSAR DOUGLAS Report Released Date/Time: Mar 01, 2023 07:56 AM Reporting Lab: [facility] [place] [address] Performing Lab: [facility] GLUCOSE,B LOOD-poct (STL) GLUCOSE [MASS/VOLU ME] IN BLOOD BY AUTOMATED TEST STRIP 151 mg/dL 72 - 99 11/23 H Specimen Type: BLOOD Comment: Test Performed by: [id number] Meter #: [id number] Ordering Provider: EDILBERTO KHAN Report Released Date/Time: Nov 23, 2022 04:38 PM Reporting Lab: [address] [id number] Performing Lab: [address] [id number] [facility] GLUCOSE,B LOOD-poct (STL) GLUCOSE [MASS/VOLU ME] IN BLOOD BY AUTOMATED TEST STRIP 137 mg/dL 72 - 99 11/23 H Specimen Type: BLOOD Comment: Test Performed by: [id number] Meter #: [id number] Ordering Provider: EDILBERTO KHAN Report Released Date/Time: Nov 23, 2022 12:05 PM Reporting Lab: [address] [place] [address] Performing Lab: [facility] [address] [facility] [address] [facility] Vital Signs Combined list of inpatient and outpatient Vital Signs from Department of [facility] and [facility], ranging from 12 months to all on record, depending upon the facility. Vital Sign Value Date Comments Source SYSTOLIC BLOOD PRESSURE 126 06/11/2023 10:40:29 [facility] DIASTOLIC BLOOD PRESSURE 69 06/11/2023 10:40:29 [facility] PULSE OXIMETRY 96% 06/11/2023 10:40:29 [facility] PAIN 9 06/11/2023 10:40:29 [facility] PULSE 80 06/11/2023 10:40:29 [facility] RESPIRATION 18 06/11/2023 10:40:29 [facility] Encounters Combined list of: 1) Encounters from [facility] facilities going back up to thelast 18 months. 2) Encounters from the Department of [facility] facilities going back up to 280 months. Location Location Details Encounter Type Encounter Number Reason For Visit Attending Provider ADM Date DC Date Status Disposition Source [facility] Inpatient Encounter [id number] 11/23 [facility] Inpatient Encounter [id number] ZANDRA NASCIMENTO ADORE A 11/23 [facility] N [facility] Inpatient Encounter [id number] AZAMTHER ADORE A 11/23 [facility] N [facility] Inpatient Encounter [id number] MARILEE DILLARD 11/23 [facility] Inpatient Encounter [id number] MARILEE DILLARD 11/23 [facility] PT EVAL LOW COMPLEX 20 MIN [id number] Diagnos is: ICD-10- CM L03.115 Celluli tis of right lower limb
WEDELJR IN FRANCESCO 11/23 [facility] SELF CARE MNGMENT TRAINING [id number] Diagnos is: ICD-10- CM L03.115 Celluli tis of right lower limb
BLANCA CRYSTAL AM 11/23 [facility] Inpatient Encounter [id number] FADI ECHOLS 11/23 [facility] Inpatient Encounter [id number] DIAMANTE DOWNEY 11/23 [facility] Inpatient Encounter [id number] FLETCHER 11/23 [facility] Outpatient Encounter [id number] 11/24 [facility] Outpatient Encounter [id number] 11/24 [facility] Outpatient Encounter [id number] STANISLAV DOUGLAS 11/28 [facility] N [facility] Outpatient Encounter [id number] KENTONDIMITRYReema Kristy Escobar 11/30 [facility] Outpatient Encounter [id number] MELVIN GRAY SSAND [facility] Outpatient Encounter [id number] 12/01 [facility] Outpatient Encounter [id number] 12/01 [facility] Outpatient Encounter [id number] 12/07 [facility] Outpatient Encounter [id number] 12/17 [facility] Outpatient Encounter [id number] MELVIN GRAYND 12/22 [facility] OFFICE O/P EST LOW 20-29 MIN [id number] Diagnos is: ICD-10- CM 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
ARTHUR NIXON 12/24 [facility] Outpatient Encounter [id number] 12/30 [facility] Outpatient Encounter [id number] MELVIN GRAY SSAND 01/21 [facility] HC PRO PHONE CALL 5-10 MIN [id number] Diagnos is: ICD-10- CM M54.50 Low back pain, unspeci fied
YOEL HARLEY MMY L 01/[address] [facility] Outpatient Encounter [id number] 01/28 [facility] Outpatient Encounter [id number] 02/02 [facility] Outpatient Encounter [id number] 02/16 [facility] Outpatient Encounter [id number] 03/01 [facility] OFF/OP EST MAY X REQ PHY/QHP [id number] Diagnos is: ICD-10- CM I10 Essenti al (primar y) hyperte nsion<b r/> YOEL HARLEY MMY L 03/01 [facility] OFF/OP EST MAY X REQ PHY/QHP [id number] Diagnos is: ICD-10- CM E03.9 Hypothy roidism , unspeci fied
STANISLAV DOUGLAS 03/[address] [facility] Outpatient Encounter [id number] 03/04 [facility] Outpatient Encounter [id number] 1 03/08 [facility] Outpatient Encounter [id number] HAZELLIVEKVNG Lance 03/23 [facility] OFFICE O/P EST MOD 30-39 MIN [id number] Diagnos is: ICD-10- CM M54.59 Other low back pain
DOUGLAS,STANISLAV REEElise 03/[address] [facility] Outpatient Encounter [id number] PENAMAEGAN 04/06 [facility] Outpatient Encounter [id number] MELVIN GRAY 04/08 [facility] OFFICE O/P EST MOD 30-39 MIN [id number] Diagnos is: ICD-10- CM E03.9 Hypothy roidism , unspeci fied
DOUGLAS,STANISLAVMandy PATELElise 04/[address] 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 [id number] Diagnos is: ICD-10- CM Z13.5 Encount er for screeni ng for eye and ear disorde rs
RAYMOND HARDY 06/11 [facility] Outpatient Encounter [id number] Diagnos is: ICD-10- CM Z13.5 Encount er for screeni ng for eye and ear disorde rs
Ben JACKSON 06/[address] [facility] FEE [id number] Diagnos is: ICD-10- CM Z13.5 Encount er for screeni ng for eye and ear disorde rs
Ben JACKSON 06/16 [facility] OFFICE O/P EST LOW 20 MIN [id number] Diagnos is: ICD-10- CM M54.59 Other low back pain
STANISLAV DOUGLAS 06/18 [facility] En[facility] [id number] 06/19 [facility] Outpatient Encounter [id number] 07/20 [facility] Outpatient Encounter [id number] 08/30 [facility] [facility] Outpatient Encounter [id number] 08/30 [facility] En[facility] [id number] YOEL HARLEY MMY L 10/31 [facility] Encounter [id number] 12/02 [facility] Outpatient Encounter [id number] 12/07 [facility] Outpatient Encounter [id number] 12/13 [facility] En[facility] [id number] YOEL HARLEY MMY L 12/20 [facility] Outpatient Encounter [id number] MELVIN GRAY 12/30 [facility] Outpatient Encounter [id number] 02/03 [facility] NEW MOD 45 MIN [id number] Diagnos is: ICD-10- CM H01.009 Unspeci fied blephar itis unspeci fied eye, unspeci fied eyelid< br/> Ben JACKSON MEEK 02/03 [facility] Outpatient Encounter [id number] 03/03 [facility] Outpatient Encounter [id number] YOEL HRALEY MMY L 03/14 [facility] Outpatient Encounter [id number] 04/13 [facility] Outpatient Encounter [id number] JAILENE GRYE IN L 04/25 [facility] Outpatient Encounter [id number] 04/27 [facility] Outpatient Encounter [id number] Diagnos is: ICD-10- CM S82.62X S Disp fx of lateral malleol us of left fibula, sequela
BIRTWISTLE ,MIKAYLA 04/28 [facility] Outpatient Encounter [id number] Diagnos is: ICD-10- CM S82.62X S Disp fx of lateral malleol us of left fibula, sequela
GRANCYNDI,JA Y P 05/02 [facility] Outpatient Encounter [id number] Diagnos is: ICD-10- CM S82.62X S Disp fx of lateral malleol us of left fibula, sequela
BIRTWISTLE ,MIKAYLA 05/03 [facility] Outpatient Encounter [id number] Diagnos is: ICD-10- CM S82.62X S Disp fx of lateral malleol us of left fibula, sequela
BIRTWISTLE ,MIKAYLA 05/08 [facility] Outpatient Encounter [id number] 05/16 [facility] N Social History Combined list of available smoking, tobacco, and other social history from Department of Defense and Veterans Affairs facilities. Social History Type Response Date Comment [facility] e Tobacco smoking status NHIS VA-TOBACCO FORMER USER 04/15/2023 [facility] History of tobacco use VA-TOBACCO QUIT 1 5 YRS OR MORE 04/15/2023 [facility] History of tobacco use ORYX ADMIT TOBACC O SCREEN NO 11/20/2022 [facility] History of tobacco use VA-TOBACCO FORMER USER 12/31/2021 [facility] History of tobacco use VA-TOBACCO FORMER USER 12/02/2020 [facility] History of tobacco use ORYX ADMIT TOBACC O SCREEN NO 04/08/2020 [facility] History of tobacco use VA-TOBACCO QUIT 1 5 YRS OR MORE 11/29/2019 [facility] History of tobacco use VA-TOBACCO FORMER USER 07/25/2018 [facility] History of tobacco use QUIT TOBACCO >7 Y EARS AGO 07/19/2017 [facility] History of tobacco use QUIT TOBACCO >7 Y EARS AGO 03/16/2017 [facility] History of tobacco use LIFETIME NON-USER OF TOBACCO 12/08/2016 [facility] History of tobacco use LIFETIME NON-USER OF TOBACCO 02/06/2016 [facility] History of tobacco use QUIT TOBACCO >7 Y EARS AGO 01/07/2015 [facility] History of tobacco use LIFETIME NON-USER OF TOBACCO 02/06/2014 [facility] History of tobacco use QUIT TOBACCO >7 Y EARS AGO 02/02/2014 [facility] History of tobacco use QUIT TOBACCO >7 Y EARS AGO 09/26/2013 [facility] History of tobacco use QUIT TOBACCO >7 Y EARS AGO 09/20/2012 [facility] Advance Directives List of completed, amended, or rescinded Advance Directives on record at Department of [facility] Affairs facilities. An actual copy of the Directive is not included. Date Advance Directive Provider Source 02/05/2014 ADVANCE DIRECTIVE DISCUSSION JAILENE RODRIGUEZ [facility]
--- OUTSIDE RECORDS SUMMARY | 2024-05-25 14:34 | XMS_ITS | Encounter Summary ---
Author Name [facility] [place] [facility] [place] Address [address] [place] [address] Care Team Providers Care Rn Emergency Room Name Role Phone INEZ MARTINEZ Primary Care Provider Unavailabl e Insurance Providers: All historical and current Section Date Range: From patient's date of to the date document was created. This section includes the names of all active insurance providers for the patient. Insurance Provider Type of Coverage Plan Name Start of Policy Coverage End of Policy Coverage Group Number Member ID Insurance Provider's Telephone Number Policy Pradhan's Name Patient's Relationship to Policy Pradhan MEDICARE (WNR) MEDICARE (M) PART B Jul 15, 2014 PART B [id number] 37A Ronda COMBS PATIENT MEDICARE (WNR) MEDICARE (M) PART A Jul 15, 2014 PART A [id number] Ronda COMBS PATIENT Selected Encounter This section includes the information on record at [place] for the Encounter. Date/Time Encounter Type Encounter Description Reason Pro vider Source Dec 08, 2023 10:20 AM Outpatient Encounter TELEPHONE TRIAGE IHE Encounter Template Text not used by [place] Plan of Treatment: Future Appointments (+ 6 months) and Future Tests (+/- 45 days) The Plan of Treatment section includes future care activities for the patient from all VA treatmentfacilities. This section includes future appointments and future orders which are active, pending or scheduled. Future Appointments This section includes appointments that were scheduled to occur 6 months from the date of the Encounter, up to a maximum of 20 appointments. The data comes from all [facility]. Appointment Date/Time Appointment Type Appointme nt Facility Name Dec 14, 2023 10:00 AM AMBULATORY - SURGERY [facility] Jan 07, 2024 11:30 AM AMBULATORY - MEDICINE [facility] Feb 04, 2024 09:30 AM AMBULATORY - SURGERY [facility] Feb 04, 2024 01:30 PM AMBULATORY - SURGERY [facility] Apr 04, 2024 09:30 AM AMBULATORY - MEDICINE [facility] Active, Pending, and Scheduled Orders This section includes a listing of several types of active, pending, and scheduled orders, including clinic medications orders, diagnostic test orders, procedure orders and consult orders; where the start date of the order is 45 days before the date of the Encounter or 45 days after the date of theEncounter. The data comes from all [facility]. Test Date/Time Test Type Test Details Facility Name November 01, 2023 12:00 AM Laboratory - Chemi stry Order TSH (MA-PB) GOLD/RED SST SERUM SP [facility] Social History: Smoking Status (Most current) and Tobacco Use (All prior to encounter date) This section includes the most current, and the historical, smoking and tobacco- related health factors from the [place] facility where the Encounter took place. Current Smoking Status This section includes the most current smoking, or tobacco-related health factor, from the [place] facility where the Encounter took place. Date/Time Current Smoking Status Comment Facil ity Nov 20, 2022 06:38 PM ORYX ADMIT TOBACCO SCREEN NO [facility] Tobacco Use History This section includes a history of the smoking, or tobacco-related health factors, that were collected on or before the date of the Encounter. The data comes from the [place] facility where the Encounter took place. Date/Time Smoking Status/Tobacco Use Comment F acility Apr 08, 2020 12:19 AM ORYX ADMIT TOBACCO SCREEN NO [facility] Nov 29, 2019 08:47 AM VA-TOBACCO FORMER USER [facility] Nov 29, 2019 08:47 AM VA-TOBACCO QUIT 15 YRS OR MORE [facility] Feb 02, 2014 07:53 PM QUIT TOBACCO >7 YEARS AGO [facility] Advance Directives: All historical and current Section Date Range: From patient's date of to the date document was created. This section includes ALL of a patient's completed or amended [place] Advance and Rescinded Directives. The entries below indicate that a directive exists for the patient, but an actual copy is not included with this document. The data comes from all [place] facilities. Date Advance Directives Provider Source Feb 05, 2014 ADVANCE DIRECTIVE DISCUSSION JAILENE RODRIGUEZ [facility] Encounter Notes: All associated encounter notes This section contains the clinical notes associated to the Encounter. Date/Time Encounter Note(s) Provider Source Dec 08, 2023 10:20 AM RN PROGRESS NOTE: [facility] TITLE: CCC: CLINICAL TRIAGE STANDARD TITLE: RN PROGRESS NOTE DATE OF NOTE: DEC 08, 2023@10:20:45 ENTRY DATE: DEC 08, 2023@10:20:45 AUTHOR: JOSEPH REHMAN RA COSIGNER: URGENCY: STATUS: COMPLETED CCC: CLINICAL TRIAGE Has ADDENDA Patient Demographics Patient Name: APPLE COMBS Patient Primary Address: [address] [place] [address] Patient Primary Phone: [phone] Patient : 1950 Patient Age: 73 Call Back Number: [phone] Caller/Recipient Relation to Patient: Other If Other Describe Relation to Patient: son Caller Name: Wu Emergency Contact: ARIS COMBS Nursing Plan and Disposition Other course(s) of action Generated msg to PACT/Provider Clinical Contact Center Codes Clinic/Location: [facility] PHONE CCC RN Notes Notes & Information: Wu, [place]'s son called in to leave a message to the PACT team regarding his father. Wu is not listed as Emergency contact and was unable to provide last 4 of social, but all other info was provided. Wu voiced concern that the [place]'s memory is not like it used to be and is concerned he's getting dementia or Alzheimer's. He said he finds he is getting lost more and unable to do normal tasks that he used to be able to do. He said he Father has always been very mechanically inclined, and he was trying to put something together that was just a couple screws and he had a very difficult time, which is unlike him. Advised will send message to Provider to notify of concerns. No further needs at this time. /alexandra/ JOSEPH MURO, RN Signed: 12/08/2023 10:20 Receipt Acknowledged By: 12/08/2023 10:30 /alexandra/ MONICA HARLEY RN, BSN REGISTERED NURSE 12/09/2023 07:45 /es/ ISABEL GRAY LICENSED PRACTICAL NURSE 12/08/2023 13:39 /es/ Inez Martinez PA-C PA-C 12/08/2023 ADDENDUM STATUS: COMPLETED [place] has a scheduled appt today at 1100. /alexandra/ MONICA HARLEY RN, BSN REGISTERED NURSE Signed: 12/08/2023 10:31 12/08/2023 ADDENDUM STATUS: COMPLETED pt had appt on 12/08/23 with transportion arranged and set. verified in leaf portal. pt called and tried to have appt changed to phone visit bc transportation was not arranged. transportation was confirmed and scheduled. pt needs labs so face to face visit scheduled 05/09/24 /shahab Martinez PA-C PA-C Signed: 12/08/2023 11:47 12/08/2023 ADDENDUM STATUS: COMPLETED [place] rescheduled appt due to above. Transportation request put in again per [facility] portal. /shahab HARLEY RN, BSN REGISTERED NURSE Signed: 12/08/2023 12:10 JO[facility]PH REHMAN [facility]
--- OUTSIDE RECORDS SUMMARY | 2024-05-25 14:35 | XMS_ITS | Encounter Summary ---
Author Name [facility] [facility] [place] [facility] [place] Address [address] [place] [address] Care Team Providers Care Urgent Care Technician Name Role Phone TRACE DOUGLAS Primary Care Provider Unavailabl e Insurance Providers: [...] PART B Jul 15, 2014 PART B [id number] 37A Ronda COMBS PATIENT MEDICARE (WNR) MEDICARE (M) PART A Jul 15, 2014 PART A [id number] 37A [phone] Ronda COMBS PATIENT Selected Encounter This section includes the information on record at [place] for the Encounter. Date/Time Encounter Type Encounter Description Reason Pro vider Source IHE Encounter Template Text not used by [place] Advance Directives: All historical and current Section Date Range: From patient's date of to the date document was created. This section includes ALL of a patient's completed or amended [place] Advance and Rescinded Directives. The entries below indicate that a directive exists for the patient, but an actual copy is not included with this document. The data comes from all [place] facilities. Date Advance Directives Provider Source Feb 05, 2014 ADVANCE DIRECTIVE DISCUSSION JAILENE RODRIGUEZ [facility]
--- OUTSIDE RECORDS SUMMARY | 2024-05-25 14:35 | XMS_ITS ---
Author Name [facility] [place] [facility] [place] Address [address] [place] [address] Care Team Providers Care Design Transferrer Name Role Phone TRACE DOUGLAS Primary Care [...] Policy Pradhan MEDICARE (WNR) MEDICARE (M) PART A Jul 15, 2014 PART A [id number] 37A [phone] Ronda CEJA PATIENT MEDICARE (WNR) MEDICARE (M) PART B Jul 15, 2014 PART B [id number] 37A Ronda CEJA PATIENT Selected Encounter This section includes the information on record at [place] for the Encounter. Date/Time Encounter Type Encounter Description Reason Pro vider Source Dec 14, 2023 11:31 AM Outpatient Encounter ADMIN PAT ACTIVTIES (MASNONCT) IHE Encounter Template Text not used by [place] Plan of Treatment: Future Appointments (+ 6 [...] 20 appointments. The data comes from all [facility]. Appointment Date/Time Appointment Type Appointme nt Facility Name Jan 07, 2024 11:30 AM AMBULATORY - MEDICINE [facility] Feb 04, 2024 09:30 AM AMBULATORY - SURGERY [facility] Feb 04, 2024 01:30 PM AMBULATORY - SURGERY [facility] Apr 04, 2024 09:30 AM AMBULATORY - MEDICINE [facility] Active, Pending, and Scheduled Orders This section includes a listing of several types of active, pending, and scheduled orders, including clinic medications orders, diagnostic test orders, procedure orders and consult orders; where the start date of the order is 45 days before the date of the Encounter or 45 days after the date of theEncounter. The data comes from all [facility]. Test Date/Time Test Type Test Details Facility Name November 01, 2023 12:00 AM Laboratory - Chemi stry Order TSH (MA-PB) GOLD/RED SST SERUM SP [facility] Social History: Smoking Status (Most current) and Tobacco Use (All prior to encounter date) This section includes the most current, and the historical, smoking and tobacco- related health factors from the [place] facility where the Encounter took place. Current Smoking Status This section includes the most current smoking, or tobacco-related health factor, from the [place] facility where the Encounter took place. Date/Time Current Smoking Status Comment Facil ity Nov 20, 2022 06:38 PM ORYX ADMIT TOBACCO SCREEN NO [facility] Tobacco Use History This section includes a history of the smoking, or tobacco-related health factors, that were collected on or before the date of the Encounter. The data comes from the [place] facility where the Encounter took place. Date/Time Smoking Status/Tobacco Use Comment F acility Apr 08, 2020 12:19 AM ORYX ADMIT TOBACCO SCREEN NO [facility] Nov 29, 2019 08:47 AM VA-TOBACCO FORMER USER [facility] Nov 29, 2019 08:47 AM VA-TOBACCO QUIT 15 YRS OR MORE [facility] Feb 02, 2014 07:53 PM QUIT TOBACCO >7 YEARS AGO [facility] Advance Directives: All historical and current Section Date Range: From patient's date of to the date document was created. This section includes ALL of a patient's completed or amended [place] Advance and Rescinded Directives. The entries below indicate that a directive exists for the patient, but an actual copy is not included with this document. The data comes from all [place] facilities. Date Advance Directives Provider Source Feb 05, 2014 ADVANCE DIRECTIVE DISCUSSION JAILENE RODRIGUEZ [facility] Encounter Notes: All associated encounter notes This section contains the clinical notes associated to the Encounter. Date/Time Encounter Note(s) Provider Source Dec 14, 2023 11:31 AM PHYSICIAN LETTERS: LOCAL TITLE: NO SHOW LETTER [facility] STANDARD TITLE: PHYSICIAN LETTERS DATE OF NOTE: DEC 14, 2023@11:31 ENTRY DATE: DEC 14, 2023@11:31:19 AUTHOR: SHON ALVARES COSIGNER: URGENCY: STATUS: COMPLETED [facility] [address] [place] [address] DEC 14, 2023 WILFREDO CEJA [address] [place] [address] Dear Wilfredo Ceja, Thank you for choosing the [facility] as your primary choice for health care. As a partner in your health care, we are attempting to contact you because our records indicate that you did not make it to your scheduled appointment, and we would like to re-schedule. Please call us at [phone], [email or web address] [phone] to speak to us regarding making an appointment in the [facility]. Your good health is important to us. Please contact us as soon as possible to reschedule your appointment so we can keep your current referral, or to let us know the appointment is no longer needed. If we do not hear back from you within two weeks, we will assume the appointment is not needed at this time. IMPORTANT: Due to COVID-19 we have greatly expanded our telehealth options, please contact the clinic to inquire about scheduling. Sincerely, SHON ALVARES ADVANCED GEROPSYCHOLOGIST [place],SHON JANG [facility]
--- OUTSIDE RECORDS SUMMARY | 2024-05-25 14:36 | XMS_ITS | Encounter Summary ---
Author Name [facility] [place] [facility] [place] Address [address] [place] [address] Care Team Providers Care Hydroelectric Plant Mechanical Engineer Name Role Phone INEZ MARTINEZ Primary Care [...] PART A Jul 15, 2014 PART A [id number] Ronda COMBS PATIENT MEDICARE (WNR) MEDICARE (M) PART B Jul 15, 2014 PART B [id number] Ronda COMBS PATIENT Selected Encounter This section includes the information on record at [place] for the Encounter. Date/Time Encounter Type Encounter Description Reason Pro vider Source Mar 03, 2024 09:31 AM Outpatient Encounter TELEPHONE TRIAGE IHE Encounter Template Text not used by [place] Plan of Treatment: Future Appointments (+ 6 [...] 20 appointments. The data comes from all [facility]. Appointment Date/Time Appointment Type Appointme nt Facility Name Apr 04, 2024 09:30 AM AMBULATORY - MEDICINE [facility] Active, Pending, and Scheduled Orders This section includes a listing of several types of active, pending, and scheduled orders, including clinic medications orders, diagnostic test orders, procedure orders and consult orders; where the start date of the order is 45 days before the date of the Encounter or 45 days after the date of theEncounter. The data comes from all [facility]. Test Date/Time Test Type Test Details Facility Name Apr 04, 2024 12:00 AM Laboratory - Chemi stry Order MICRAL/CREAT PROFILE (STL) URINE YELLOW SP [facility] Apr 04, 2024 12:00 AM Laboratory - Chemi stry Order HGA1C BLOOD SP [facility] Apr 04, 2024 12:00 AM Laboratory - Chemi stry Order LIPID PANEL (STL) GREEN LI/HEP BLD/PLAS PLASMA SP [facility] Social History: Smoking Status (Most current) and Tobacco Use (All prior to encounter date) This section includes the most current, and the historical, smoking and tobacco- related health factors from the [place] facility where the Encounter took place. Current Smoking Status This section includes the most current smoking, or tobacco-related health factor, from the [place] facility where the Encounter took place. Date/Time Current Smoking Status Comment Facil ity Nov 20, 2022 06:38 PM ORYX ADMIT TOBACCO SCREEN NO [facility] Tobacco Use History This section includes a history of the smoking, or tobacco-related health factors, that were collected on or before the date of the Encounter. The data comes from the [place] facility where the Encounter took place. Date/Time Smoking Status/Tobacco Use Comment F acility Apr 08, 2020 12:19 AM ORYX ADMIT TOBACCO SCREEN NO [facility] Nov 29, 2019 08:47 AM VA-TOBACCO FORMER USER [facility] Nov 29, 2019 08:47 AM VA-TOBACCO QUIT 15 YRS OR MORE [facility] Feb 02, 2014 07:53 PM QUIT TOBACCO >7 YEARS AGO [facility] Advance Directives: All historical and current Section Date Range: From patient's date of to the date document was created. This section includes ALL of a patient's completed or amended [place] Advance and Rescinded Directives. The entries below indicate that a directive exists for the patient, but an actual copy is not included with this document. The data comes from all [place] facilities. Date Advance Directives Provider Source Feb 05, 2014 ADVANCE DIRECTIVE DISCUSSION JAILENE RODRIGUEZ [facility] Encounter Notes: All associated encounter notes This section contains the clinical notes associated to the Encounter. Date/Time Encounter Note(s) Provider Source Mar 03, 2024 12:11 PM ADDENDUM: LOCAL TITLE: Addendum STANDARD TITLE: ADDENDUM DATE OF NOTE: MAR 03, 2024@12:11:43 ENTRY DATE: MAR 03, 2024@12:11:44 AUTHOR: INEZ MARTINEZ EXP COSIGNER: URGENCY: STATUS: COMPLETED pt has not been seen since 06/2023. pt needs to make an attend appt for further refills. /alexandra/ Inez Martinez PA-C PA-C Signed: 03/03/2024 12:12 Receipt Acknowledged By: 03/06/2024 10:19 /es/ MONICA HARLEY RN, BSN REGISTERED NURSE 03/10/2024 09:26 /es/ SAHIL WILLIAMSON ADVANCED HARDWARE INSTALLER === --- Original Document --- 03/03/24 PHARMACY CONTACT CENTER NOTE: MEDICATION RENEW [id number] SUBSTANCE: Who is contacting the [facility]? /Patient Contact via: Phone Requesting renewal of medication: AMLODIPINE BESYLATE 2.5MG TAB [id number] ACTIVE 270 10/04/2024 10/04/2023 02/29/2024 0 INEZ MARTINEZ 4.428 TAKE THREE TABLETS BY MOUTH ONCE A DAY FOR HEART/BLOOD PRESSURE Please send medication: Mail Disposition: Notification forwarded to provider for review of renewal request. /Lexis Ascencio 15 [employer] DEF[employer] CREWMEMBER Signed: 03/03/2024 09:33 Receipt Acknowledged By: 03/03/2024 12:10 /sahhab Martinez PA-C PA-C 03/06/2024 ADDENDUM STATUS: COMPLETED Attempt to contact at , no answer and voicemail is full. /shahab HARLEY RN, BSN REGISTERED NURSE Signed: 03/06/2024 09:12 03/06/2024 ADDENDUM STATUS: COMPLETED contacted and informed of above need to schedule a routine appt with PCP. Hiram in agreement and call transferred to [facility] for scheduling. No further questions at this time. /shahab HARLEY RN, BSN REGISTERED NURSE Signed: 03/06/2024 10:20 03/06/2024 ADDENDUM STATUS: COMPLETED Transportation request placed via [employer] Portal for 03/15/24 with picked edge sewing machine operator at [phone]. /shahab HARLEY RN, BSN REGISTERED NURSE Signed: 03/06/2024 12:44 INEZ MARTINEZ [facility] Mar 03, 2024 09:31 AM PHARMACY NOTE: LOCAL TITLE: PHARMACY CONTACT CENTER NOTE STANDARD TITLE: PHARMACY NOTE DATE OF NOTE: MAR 03, 2024@09:31 ENTRY DATE: MAR 03, 2024@09:32:03 AUTHOR: SARAH MUIR EXP COSIGNER: URGENCY: STATUS: COMPLETED PHARMACY CONTACT CENTER NOTE Has ADDENDA MEDICATION RENEW [id number] SUBSTANCE: Who is contacting the [facility]? /Patient Contact via: Phone Requesting renewal of medication: AMLODIPINE BESYLATE 2.5MG TAB [id number] ACTIVE 270 10/04/2024 10/04/2023 02/29/2024 0 INEZ MARTINEZ 4.428 TAKE THREE TABLETS BY MOUTH ONCE A DAY FOR HEART/BLOOD PRESSURE Please send medication: Mail Disposition: Notification forwarded to provider for review of renewal request. /Lexis Ascencio 15 [employer] CREWMEMBER Signed: 03/03/2024 09:33 Receipt Acknowledged By: 03/03/2024 12:10 /shahab Martinez PA-C PA-C 03/03/2024 ADDENDUM STATUS: COMPLETED pt has not been seen since 06/2023. pt needs to make an attend appt for further refills. /shahab Martinez PA-C PA-C Signed: 03/03/2024 12:12 Receipt Acknowledged By: 03/06/2024 10:19 /alexandra/ MONICA HARLEY RN, BSN REGISTERED NURSE * AWAITING SIGNATURE * SAHIL WILLIAMSON 03/06/2024 ADDENDUM STATUS: COMPLETED Attempt to contact at , no answer and voicemail is full. /shahab HARLEY RN, BSN REGISTERED NURSE Signed: 03/06/2024 09:12 03/06/2024 ADDENDUM STATUS: COMPLETED Hiram contacted and informed of above need to schedule a routine appt with PCP. Hiram in agreement and call transferred to [facility] for scheduling. No further questions at this time. /shahab HARLEY RN, BSN REGISTERED NURSE Signed: 03/06/2024 10:20 03/06/2024 ADDENDUM STATUS: COMPLETED Transportation request placed via [employer] Portal for 03/15/24 with picked edge sewing machine operator at [phone]. /shahab HARLEY RN, BSN REGISTERED NURSE Signed: 03/06/2024 12:44 SARAH MUIR [facility]
--- OUTSIDE RECORDS SUMMARY | 2024-05-25 14:36 | XMS_ITS | Encounter Summary ---
Author Name [facility] [facility] [place] [facility] [place] Address [address] [place] [address] Care Team Providers Care Bottom Turning Lathe Turner Name Role Phone TRACE DOUGLAS Primary Care [...] PART A Jul 15, 2014 PART A [id number] [phone] Ronda COMBS PATIENT MEDICARE (WNR) MEDICARE (M) PART B Jul 15, 2014 PART B [id number] Ronda COMBS PATIENT Selected Encounter This section includes the information on record at [place] for the Encounter. Date/Time Encounter Type Encounter Description Reason Provider Source Feb 04, 2024 01:30 PM OFFICE O/P NEW MOD 45 MIN OPTOMETRY ICD-10-CM H01.009 Unspecified blepharitis unspecified eye, unspecified eyelid CHIVETTA,JOSHUA MEEK IHE Encounter Template Text not used by [place] Assessments - Encounter Diagnoses This section includes the primary and secondary diagnoses documented for the Encounter. Date/Time Primary/Secondary Diagnosis Diagnosis Name Provider Source Feb 04, 2024 01:06 PM PRIMARY Unspecified blepharitis unspecified eye, unspecified eyelid CHIVETTA,JOSHUA [facility] Feb 04, 2024 01:06 PM SECONDARY Combined forms of age-related cataract, bilateral CHIVETTA,JOSHUA DEVIRICIA [facility] Feb 04, 2024 01:06 PM SECONDARY Other retinoschisis and retinal cysts, left eye CHIVETTA,JOSHUA DEVIRICIA [facility] Feb 04, 2024 01:06 PM SECONDARY Presbyopia CHIVETTA,JOSHUA MEEK [facility] Feb 04, 2024 01:06 PM SECONDARY Type 2 diab with mild nonp rtnop without macular edema, [facility] Plan of Treatment: Future Appointments (+ 6 months) and Future Tests (+/- 45 days) The Plan of Treatment section includes future care activities for the [facility] [place] [facility] This section includes future appointments and future orders which are active, pending or scheduled. Future Appointments This section includes appointments that were scheduled to occur 6 months from the date of the Encounter, up to a maximum of 20 appointments. The data comes from all [place] treatment facilities. Appointment Date/Time Appointment Type Appointme nt Facility Name Apr 04, 2024 09:30 AM AMBULATORY - MEDICINE [facility] Social History: Smoking Status (Most current) and Tobacco Use (All prior to encounter date) This section includes the most current, and the historical, smoking and tobacco- related health factors from the [place] facility where the Encounter took place. Current Smoking Status This section includes the most current smoking, or tobacco-related health factor, from the [place] facility where the Encounter took place. Date/Time Current Smoking Status Comment Facil ity Apr 15, 2023 11:30 AM [place]-TOBACCO QUIT 15 YRS OR MORE [facility] Tobacco Use History This section includes a history of the smoking, or tobacco-related health factors, that were collected on or before the date of the Encounter. The data comes from the [place] facility where the Encounter took place. Date/Time Smoking Status/Tobacco Use Comment F acility Apr 15, 2023 11:30 AM VA-TOBACCO QUIT 15 YRS OR MORE [facility] Dec 31, 2021 10:30 AM VA-TOBACCO FORMER USER [facility] Dec 31, 2021 10:30 AM VA-TOBACCO QUIT 15 YRS OR MORE [facility] Dec 02, 2020 01:00 PM VA-TOBACCO FORMER USER [facility] Dec 02, 2020 01:00 PM VA-TOBACCO QUIT 15 YRS OR MORE [facility] Jul 25, 2018 09:15 AM VA-TOBACCO FORMER USER [facility] Jul 25, 2018 09:15 AM VA-TOBACCO QUIT 15 YRS OR MORE [facility] Jul 19, 2017 11:02 AM QUIT TOBACCO >7 YEARS AGO [facility] Mar 16, 2017 11:32 AM QUIT TOBACCO >7 YEARS AGO [facility] Dec 08, 2016 01:28 PM LIFETIME NON-USER OF TOBACCO [facility] Feb 06, 2016 01:06 PM LIFETIME NON-USER OF TOBACCO [facility] Jan 07, 2015 09:04 AM QUIT TOBACCO >7 YEARS AGO [facility] Feb 06, 2014 02:33 PM LIFETIME NON-USER OF TOBACCO [facility] Sep 26, 2013 10:45 AM QUIT TOBACCO >7 YEARS AGO [facility] Sep 20, 2012 02:07 PM QUIT TOBACCO >7 YEARS AGO [facility] Advance Directives: All historical and current Section Date Range: From patient's date of to the date document was created. This section includes ALL of a patient's completed or amended [place] Advance and Rescinded Directives. The entries below indicate that a directive exists for the patient, but an actual copy is not included with this document. The data comes from all [place] facilities. Date Advance Directives Provider Source Feb 05, 2014 ADVANCE DIRECTIVE DISCUSSION JAILENE RODRIGUEZ [facility] Encounter Notes: All associated encounter notes This section contains the clinical notes associated to the Encounter. Date/Time Encounter Note(s) Provider Source Feb 04, 2024 11:45 AM OPTOMETRY NOTE: LOCAL TITLE: OPTOMETRY NOTE STANDARD TITLE: OPTOMETRY NOTE DATE OF NOTE: FEB 04, 2024@11:45 ENTRY DATE: FEB 04, 2024@11:45:29 AUTHOR: JOSHUA JACKSON EXP COSIGNER: URGENCY: STATUS: COMPLETED Last seen 10/28/17 Reason for visit: CC: 1. Concern c DM last a1c 6.4 no vision issues OU dist is blurry when reading subttitles Ocular meds: none Ocular ROS: 1. 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 Dry eye symptoms OU 3. Cataracts NS and Cortical OU. 4. Refractive error/presbyopia OU 5. Retinoschisis OS, bullous 6. 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 Family OcHX: (-) blindness (-) glaucoma (-) AMD (-) RD Cardiovascular ROS: no change from problem & medication lists [facility] Problem list, medications and allergies reviewed: [facility] Serology for Diabetes GLUCOSE 102 H mg/dL 03/01/2023 09:44 HGA1C 6.4 H % 03/01/2023 09:44 Cardiovascular BP: 126/69 (06/11/2023 10:40) Pulse: 80 (06/11/2023 10:40) Neuro: Orientation: Normal Psych: Mood/Affect: Normal Depression/suicide ideation: NO VISUAL ACUITY With correction Distance Visual Acuity OD 20/40-2 OS 20/50-2 Pupils PERRL OU (-)APD Confrontation: FTFC OU Extra-Ocular Muscles Full OU (-)pain (-)diplopia Externals/adnexa: Unremarkable OU Refraction 10/28/17 O.D. +3.75 -0.50 x 95 20/20 O.S. +5.50 -0.75 x 115 20/25 Add +2.50 auto +2.00-0.12h342 +4.00-0.01x974 Refraction: 02/04/24 OD +2.00-0.26h104 20/20- OS +4.00-0.63v584 20/25 PAP 20/20-2 Add: + 2.75 PAL c transitions; AR coating - titanium for allergy SLIT LAMP EXAMINATION Lids/Lashes/Lacrimal 2+ blepharitis OU Conjunctiva/Sclera White/quiet OU Cornea Clear OU Ant Chamber 4/4 VH, Deep and quiet OU Iris Normal, (-)NVI OU Lens 2+ brunescent NS OU Intraocular Pressures (Goldmann) 1 gtt fluress Date O.D. O.S. 02/21/15 16 16 11:30 10/22/16 15 15 12:00 10/28/17 16 17 12:00 02/04/24 11 14 1147 RETINAL EVALUATION 1 phenyleph 2.5%, 1 trop 1% OU DFE Dilated retinal exam Optic Nerve OD: 0.6 CDR Flat, pink, distinct (-)NVD OS: 0.5 CDR Flat, pink, distinct (-)NVD OU: NRR intact (+)ISNT Vessels: 2/3 OU Macula: OD: Flat, intact (-)CSME OS: Flat, intact (-)CSME Posterior Pole: OD: (+)few db hemes (-)CWS (-)NVE OS: (+)few db hemes (-)CWS (-)NVE Periphery: OD: (-)holes, tears, RDs 360 OS: (-)holes, tears, RDs 360; (+) Bullous reinoschisis inferiorly 4:00 to 7:00 OU: 360 reticular Vitreous: synersis OU Assessment/Plan 02/04/24 1. Blepharitis Start ocusooft lid scrubs - ed on usage rx to be mailed RTC if symptoms worsen or do not improve 2. Diabetes with mild NPDR sc DME Last HGA1C 6.4 H % 03/01/2023 09:44 (-)CSME/DME on clinical exam Pt ed on the importance of tight bg control Recommend A1C <7% to reduce risk of ocular complications 3. Cataracts OU mildly visually significant OS>OD signficant refractive shift today Defer cataract extraction until signs/sx indicate 4. Retinoschisis OS, bullous inferior - no outer or inner wall holes retina intact ed on s/s of RD and to RTC c changes monitor yearly c DFE 5. Refractive error/Presbyopia increase in bva w/refraction Order new glasses - ed on adaptation Ed. pt on all findings RTC 1 year or PRN, pt wishes to direct schedule /es/ JOSHUA JACKSON, MAAME Staff Physician, Optometry Signed: 02/04/2024 13:06 JOSHUA JACKSON [facility]
--- OUTSIDE RECORDS SUMMARY | 2024-05-25 14:36 | XMS_ITS | Encounter Summary ---
Author Name [facility] [place] Address [address] [place] [address] Care Team Providers Care Jira Developer Name Role Phone TRACE DOUGLAS Primary Care [...] PART A Jul 15, 2014 PART A [id number] Ronda COMBS PATIENT MEDICARE (WNR) MEDICARE (M) PART B Jul 15, 2014 PART B [id number] [phone] Ronda COMBS PATIENT Selected Encounter This section includes the information on record at [place] for the Encounter. Date/Time Encounter Type Encounter Description Reason Provider Source Dec 21, 2023 12:02 PM Outpatient Encounter TELEPHONE PRIMARY CARE MONICA HARLEY Encounter Template Text not used by CT Plan of Treatment: Future Appointments (+ 6 [...] 20 appointments. The data comes from all [place] treatment facilities. Appointment Date/Time Appointment Type Appointme nt Facility Name Jan 07, 2024 11:30 AM AMBULATORY - [facility]INE [facility] Feb 04, 2024 09:30 AM AMBULATORY - SURGERY [facility] Feb 04, 2024 01:30 PM AMBULATORY - SURGERY [facility] Apr 04, 2024 09:30 AM AMBULATORY - MEDICINE [facility] Social History: Smoking Status (Most current) and Tobacco Use (All prior to encounter date) This section includes the most current, and the historical, smoking and tobacco- related health factors from the [place] facility where the Encounter took place. Current Smoking Status This section includes the most current smoking, or tobacco-related health factor, from the [place] facility where the Encounter took place. Date/Time Current Smoking Status Comment Facil ity Nov 20, 2022 06:38 PM ORYX ADMIT TOBACCO SCREEN NO [facility] Tobacco Use History This section includes a history of the smoking, or tobacco-related health factors, that were collected on or before the date of the Encounter. The data comes from the [place] facility where the Encounter took place. Date/Time Smoking Status/Tobacco Use Comment F acility Apr 08, 2020 12:19 AM ORYX ADMIT TOBACCO SCREEN NO [facility] Nov 29, 2019 08:47 AM VA-TOBACCO FORMER USER [facility] Nov 29, 2019 08:47 AM VA-TOBACCO QUIT 15 YRS OR MORE [facility] Feb 02, 2014 07:53 PM QUIT TOBACCO >7 YEARS AGO [facility] Advance Directives: All historical and current Section Date Range: From patient's date of to the date document was created. This section includes ALL of a patient's completed or amended [place] Advance and Rescinded Directives. The entries below indicate that a directive exists for the patient, but an actual copy is not included with this document. The data comes from all [facility]. Date Advance Directives Provider Source Feb 05, 2014 ADVANCE DIRECTIVE DISCUSSION JAILENE RODRIGUEZ [facility] Encounter Notes: All associated encounter notes This section contains the clinical notes associated to the Encounter. Date/Time Encounter Note(s) Provider Source Dec 21, 2023 12:02 PM NURSING NOTE: LOCAL TITLE: V15 PACT TELEPHONE CONTACT NOTE [facility] TITLE: NURSING NOTE DATE OF NOTE: DEC 21, 2023@12:02 ENTRY DATE: DEC 21, 2023@12:02:20 AUTHOR: MONICA HARLEY EXP COSIGNER: URGENCY: STATUS: COMPLETED V15 PACT TELEPHONE CONTACT NOTE [facility] Has ADDENDA Unable to contact: Left voice mail message instructing patient to return call. Outbound call to patient for: To inform him that his Transportation request for appt on 01/07/2024 @ 1130 was denied. /alexandra/ MONICA HARLEY RN, BSN REGISTERED NURSE Signed: 12/21/2023 12:04 12/21/2023 ADDENDUM STATUS: COMPLETED Travel Request ID #: [id number] Request Status: Denied First letter of Last Name: B Last 4: [id number] Mode: Common Carrier Appointment Date: 2024-01-07 Appointment Time: 11:30 [facility] is unable to accommodate the requested transportation. When the appointment is rescheduled, please create a new travel request. Include [Request ID #] in other information section of the new travel request. /alexandra/ MONICA HARLEY RN, BSN REGISTERED NURSE Signed: 12/21/2023 12:04 MONICA HARLEY [facility]
--- OUTSIDE RECORDS SUMMARY | 2024-05-25 14:36 | XMS_ITS | Encounter Summary ---
Author Name [facility] [place] Address [address] [place] [address] Care Team Providers Care Cone Marker Name Role Phone TRACE DOUGLAS Primary Care [...] PART A Jul 15, 2014 PART A [id number] Ronda COMBS PATIENT MEDICARE (WNR) MEDICARE (M) PART B Jul 15, 2014 PART B [id number] [phone] Ronda COMBS PATIENT Selected Encounter This section includes the information on record at [place] for the Encounter. Date/Time Encounter Type Encounter Description Reason Provider Source Mar 14, 2024 09:33 AM Outpatient Encounter TELEPHONE PRIMARY CARE MONICA HARLEY Encounter Template Text not used by [place] Plan of Treatment: Future Appointments (+ 6 [...] 20 appointments. The data comes from all [facility]. Appointment Date/Time Appointment Type Appointme nt Facility Name Apr 04, 2024 09:30 AM AMBULATORY - MEDICINE [facility] Active, Pending, and Scheduled Orders This section includes a listing of several types of active, pending, and scheduled orders, including clinic medications orders, diagnostic test orders, procedure orders and consult orders; where the start date of the order is 45 days before the date of the Encounter or 45 days after the date of theEncounter. The data comes from all [facility]. Test Date/Time Test Type Test Details Facility Name Apr 04, 2024 12:00 AM Laboratory - Chemi stry Order HGA1C BLOOD SP [facility] Apr 04, 2024 12:00 AM Laboratory - Chemi stry Order MICRAL/CREAT PROFILE (STL) URINE YELLOW SP [facility] Apr 04, 2024 12:00 AM Laboratory - Chemi stry Order LIPID PANEL (STL) GREEN LI/HEP BLD/PLAS PLASMA SP [facility] Social History: Smoking Status (Most current) and Tobacco Use (All prior to encounter date) This section includes the most current, and the historical, smoking and tobacco- related health factors from the [place] facility where the Encounter took place. Current Smoking Status This section includes the most current smoking, or tobacco-related health factor, from the [place] facility where the Encounter took place. Date/Time Current Smoking Status Comment Facil ity Nov 20, 2022 06:38 PM ORYX ADMIT TOBACCO SCREEN NO [facility] Tobacco Use History This section includes a history of the smoking, or tobacco-related health factors, that were collected on or before the date of the Encounter. The data comes from the [place] facility where the Encounter took place. Date/Time Smoking Status/Tobacco Use Comment F acility Apr 08, 2020 12:19 AM ORYX ADMIT TOBACCO SCREEN NO [facility] Nov 29, 2019 08:47 AM VA-TOBACCO FORMER USER [facility] Nov 29, 2019 08:47 AM VA-TOBACCO QUIT 15 YRS OR MORE [facility] Feb 02, 2014 07:53 PM QUIT TOBACCO >7 YEARS AGO [facility] Advance Directives: All historical and current Section Date Range: From patient's date of to the date document was created. This section includes ALL of a patient's completed or amended [place] Advance and Rescinded Directives. The entries below indicate that a directive exists for the patient, but an actual copy is not included with this document. The data comes from all [place] facilities. Date Advance Directives Provider Source Feb 05, 2014 ADVANCE DIRECTIVE DISCUSSION JAILENE RODRIGUEZ [facility] Encounter Notes: All associated encounter notes This section contains the clinical notes associated to the Encounter. Date/Time Encounter Note(s) Provider Source Mar 14, 2024 09:33 AM NURSING NOTE: LOCAL TITLE: V15 PACT TELEPHONE CONTACT NOTE [facility] STANDARD TITLE: NURSING NOTE DATE OF NOTE: MAR 14, 2024@09:33 ENTRY DATE: MAR 14, 2024@09:33:18 AUTHOR: MONICA HARLEY EXP COSIGNER: URGENCY: STATUS: COMPLETED V15 PACT TELEPHONE CONTACT NOTE [facility] Has ADDENDA Unable to contact: No answer at phone number listed and unable to leave message. (voicemail is full) Outbound call to patient for: Transportation request denied for appt on 03/15/24. Will attempt to reach . Travel Request ID #: [id number] Request Status: Denied First letter of Last Name: B Last 4: 493 Mode: Common Carrier Appointment Date: 2024-03-15 Appointment Time: 09:30 [facility] is unable to accommodate the requested transportation. When the appointment is rescheduled, please create a new travel request. Include [Request ID #] in other information section of the new travel request. /shahab HARLEY RN, BSN REGISTERED NURSE Signed: 03/14/2024 09:35 03/14/2024 ADDENDUM STATUS: COMPLETED Attempt to contact regarding transportation denial, no answer and voicemail is still full. /shahab HARLEY RN, BSN REGISTERED NURSE Signed: 03/14/2024 15:33 MONICA HARLEY [facility]
--- OUTSIDE RECORDS SUMMARY | 2024-05-25 14:36 | XMS_ITS | Encounter Summary ---
Author Name [facility] [place] [facility] [place] Address [address] [place] [address] Care Team Providers Care Satellite Communications Operator Name Role Phone TRACE DOUGLAS Primary Care [...] PART A Jul 15, 2014 PART A [id number] [id number] Ronda CEJA PATIENT MEDICARE (WNR) MEDICARE (M) PART B Jul 15, 2014 PART B [id number] 37A Ronda CEJA PATIENT Selected Encounter This section includes the information on record at [place] for the Encounter. Date/Time Encounter Type Encounter Description Reason Pro vider Source Feb 04, 2024 10:01 AM Outpatient Encounter ADMIN PAT ACTIVTIES (MASNONCT) IHE Encounter Template Text not used by [place] Plan of Treatment: Future Appointments (+ 6 [...] 20 appointments. The data comes from all [place] treatment facilities. Appointment Date/Time Appointment Type Appointme nt Facility Name Apr 04, 2024 09:30 AM AMBULATORY - MEDICINE [facility] Social History: Smoking Status (Most current) and Tobacco Use (All prior to encounter date) This section includes the most current, and the historical, smoking and tobacco- related health factors from the [place] facility where the Encounter took place. Current Smoking Status This section includes the most current smoking, or tobacco-related health factor, from the [place] facility where the Encounter took place. Date/Time Current Smoking Status Comment Facil ity Nov 20, 2022 06:38 PM ORYX ADMIT TOBACCO SCREEN NO [facility] Tobacco Use History This section includes a history of the smoking, or tobacco-related health factors, that were collected on or before the date of the Encounter. The data comes from the [place] facility where the Encounter took place. Date/Time Smoking Status/Tobacco Use Comment F acility Apr 08, 2020 12:19 AM ORYX ADMIT TOBACCO SCREEN NO [facility] Nov 29, 2019 08:47 AM VA-TOBACCO FORMER USER [facility] Nov 29, 2019 08:47 AM VA-TOBACCO QUIT 15 YRS OR MORE [facility] Feb 02, 2014 07:53 PM QUIT TOBACCO >7 YEARS AGO [facility] Advance Directives: All historical and current Section Date Range: From patient's date of to the date document was created. This section includes ALL of a patient's completed or amended [place] Advance and Rescinded Directives. The entries below indicate that a directive exists for the patient, but an actual copy is not included with this document. The data comes from all [facility]. Date Advance Directives Provider Source Feb 05, 2014 ADVANCE DIRECTIVE DISCUSSION JAILENE RODRIGUEZ [facility] Encounter Notes: All associated encounter notes This section contains the clinical notes associated to the Encounter. Date/Time Encounter Note(s) Provider Source Feb 04, 2024 10:01 AM PHYSICIAN LETTERS: LOCAL TITLE: NO SHOW LETTER STL STANDARD TITLE: PHYSICIAN LETTERS DATE OF NOTE: FEB 04, 2024@10:01 ENTRY DATE: FEB 04, 2024@10:02:38 AUTHOR: SHON ALVARES COSIGNER: URGENCY: STATUS: COMPLETED [facility] [address] [place] [address] FEB 04, 2024 WILFREDO CEJA [address] [address] Dear Wilfredo Ceja, Thank you for choosing the [facility] as your primary choice for health care. As a partner in your health care, we are attempting to contact you because our records indicate that you did not make it to your scheduled appointment, and we would like to re-schedule. Please call us at [phone], [email or web address] [phone] to speak to us regarding making an appointment in the [facility] clinic. Your good health is important to [...] inquire about scheduling. Sincerely, SHON ALVARES [facility] WILFREDO CEJA [facility]
--- OUTSIDE RECORDS SUMMARY | 2024-05-25 14:36 | XMS_ITS | Encounter Summary ---
Author Name [facility] [place] Organization [place] Address [address] [place] [address] Care Team Providers Care Hearing Aid Assembly Supervisor Name Role Phone TRACE DOUGLAS Primary Care [...] PART B Jul 15, 2014 PART B [id number] 37A Ronda COMBS PATIENT MEDICARE (WNR) MEDICARE (M) PART A Jul 15, 2014 PART A [id number] [phone] Ronda COMBS PATIENT Selected Encounter This section includes the information on record at [place] for the Encounter. Date/Time Encounter Type Encounter Description Reason Provider Source Dec 31, 2023 03:43 PM Outpatient Encounter PRIMARY CARE/MEDICINE EVELIA GRAY Encounter Template Text not used by [place] Plan of Treatment: Future Appointments (+ 6 [...] 20 appointments. The data comes from all [place] treatment facilities. Appointment Date/Time Appointment Type Appointme nt Facility Name Jan 07, 2024 11:30 AM AMBULATORY - MEDICINE [facility] Feb 04, 2024 09:30 AM AMBULATORY - SURGERY [facility] Feb 04, 2024 01:30 PM AMBULATORY - SURGERY [facility] Apr 04, 2024 09:30 AM AMBULATORY - MEDICINE [facility] Social History: Smoking Status (Most current) and Tobacco Use (All prior to encounter date) This section includes the most current, and the historical, smoking and tobacco- related health factors from the [place] facility where the Encounter took place. Current Smoking Status This section includes the most current smoking, or tobacco-related health factor, from the [place] facility where the Encounter took place. Date/Time Current Smoking Status Comment Facil ity Nov 20, 2022 06:38 PM ORYX ADMIT TOBACCO SCREEN NO [facility] Tobacco Use History This section includes a history of the smoking, or tobacco-related health factors, that were collected on or before the date of the Encounter. The data comes from the [place] facility where the Encounter took place. Date/Time Smoking Status/Tobacco Use Comment F acility Apr 08, 2020 12:19 AM ORYX ADMIT TOBACCO SCREEN NO [facility] Nov 29, 2019 08:47 AM VA-TOBACCO FORMER USER [facility] Nov 29, 2019 08:47 AM VA-TOBACCO QUIT 15 YRS OR MORE [facility] Feb 02, 2014 07:53 PM QUIT TOBACCO >7 YEARS AGO [facility] Advance Directives: All historical and current Section Date Range: From patient's date of to the date document was created. This section includes ALL of a patient's completed or amended [place] Advance and Rescinded Directives. The entries below indicate that a directive exists for the patient, but an actual copy is not included with this document. The data comes from all [place] facilities. Date Advance Directives Provider Source Feb 05, 2014 ADVANCE DIRECTIVE DISCUSSION JAILENE RODRIUGEZ [facility] Encounter Notes: All associated encounter notes This section contains the clinical notes associated to the Encounter. Date/Time Encounter Note(s) Provider Source Dec 31, 2023 03:43 PM NURSING NOTE: LOCAL TITLE: V15 PACT TELEPHONE CONTACT NOTE ST STANDARD TITLE: NURSING NOTE DATE OF NOTE: DEC 31, 2023@15:43 ENTRY DATE: DEC 31, 2023@15:43:43 AUTHOR: ISABEL GRAY EXP COSIGNER: URGENCY: STATUS: COMPLETED Unable to contact: Left general message and directed to contact team with questions. Outbound call to patient for: [facility] 01/07/2024 1130 reminder call left information regarding transportation request for appt on 01/07/2024 was denied. /alexandra/ ISABEL GRAY LICENSED PRACTICAL NURSE Signed: 12/31/2023 15:45 ISABEL GRAY [facility]
--- OUTSIDE RECORDS SUMMARY | 2024-05-25 14:36 | XMS_ITS ---
Author Name [facility] [place] Organization [facility] [place] Address [address] [place] [address] Care Team Providers Care Wood Router Name Role Phone TRACE DOUGLAS Primary Care [...] PART A Jul 15, 2014 PART A [id number] [phone] Ronda CEJA PATIENT MEDICARE (WNR) MEDICARE (M) PART B Jul 15, 2014 PART B [id number] [id number] Ronda CEJA PATIENT Selected Encounter This section includes the information on record at [place] for the Encounter. Date/Time Encounter Type Encounter Description Reason Pro vider Source Apr 13, 2024 05:19 PM Outpatient Encounter ADMIN PAT ACTIVTIES (MASNONCT) IHE Encounter Template Text not used by [place] Plan of Treatment: Future Appointments (+ 6 months) and Future Tests (+/- 45 days) The Plan of Treatment section includes future care activities for the patient from all [place] treatment[place]ilities[place] This section includes future appointments and future orders which are active, pending or scheduled. Active, Pending, and Scheduled Orders This section includes a listing of several types of active, pending, and scheduled orders, including clinic medications orders, diagnostic test orders, procedure orders and consult orders; where the start date of the order is 45 days before the date of the Encounter or 45 days after the date of theEncounter. The data comes from all [place] treatment facilities. Test Date/Time Test Type Test Details Facility Name Apr 04, 2024 12:00 AM Laboratory - Chemi stry Order HGA1C BLOOD SP [facility] Apr 04, 2024 12:00 AM Laboratory - Chemi stry Order MICRAL/CREAT PROFILE (STL) URINE YELLOW SP [facility] Apr 04, 2024 12:00 AM Laboratory - Chemi stry Order LIPID PANEL (STL) GREEN LI/HEP BLD/PLAS PLASMA SP [facility] Social History: Smoking Status (Most current) and Tobacco Use (All prior to encounter date) This section includes the most current, and the historical, smoking and tobacco- related health factors from the [place] facility where the Encounter took place. Current Smoking Status This section includes the most current smoking, or tobacco-related health factor, from the [place] facility where the Encounter took place. Date/Time Current Smoking Status Comment Facil ity Nov 20, 2022 06:38 PM ORYX ADMIT TOBACCO SCREEN NO [facility] Tobacco Use History This section includes a history of the smoking, or tobacco-related health factors, that were collected on or before the date of the Encounter. The data comes from the [place] facility where the Encounter took place. Date/Time Smoking Status/Tobacco Use Comment F acility Apr 08, 2020 12:19 AM ORYX ADMIT TOBACCO SCREEN NO [facility] Nov 29, 2019 08:47 AM VA-TOBACCO FORMER USER [facility] Nov 29, 2019 08:47 AM VA-TOBACCO QUIT 15 YRS OR MORE [facility] Feb 02, 2014 07:53 PM QUIT TOBACCO >7 YEARS AGO [facility] Advance Directives: All historical and current Section [...] 05, 2014 ADVANCE DIRECTIVE DISCUSSION JAILENE RODRIGUEZ [facility] Encounter Notes: All associated encounter notes This section contains the clinical notes associated to the Encounter. Date/Time Encounter Note(s) Provider Source Apr 13, 2024 05:20 PM PHYSICIAN LETTERS: LOCAL TITLE: NO CONTACT LETTER STL STANDARD TITLE: PHYSICIAN LETTERS DATE OF NOTE: APR 13, 2024@17:20 ENTRY DATE: APR 13, 2024@17:20:36 AUTHOR: PAUL MCCALLUMIGNER: URGENCY: STATUS: COMPLETED [address] [address] APR 13, 2024 W[address]FREDO CEJA [address] [place] [address] Dear Wilfredo Ceja, Thank you for choosing the [facility] as your primary choice for health care. As a partner in your health care, we are attempting to contact you because we have been unsuccessful in reaching you by phone to schedule your clinic appointment. Please call us at [phone], [id number] [phone] option 2 to speak to us regarding making an appointment in the -pact e2 clinic. Your good health is important to us. Please contact us within 2 weeks from the date of this letter. If we do not hear from you, we will notify your referring provider and a new referral will be required to schedule an appointment. IMPORTANT: Due to COVID-19 we have greatly expanded our telehealth options, please contact the clinic to inquire about scheduling. Sincerely, WILFREDO GOMEZ TIMMESHA R [facility] Apr 13, 2024 05:19 PM ADMINISTRATIVE NOT E: LOCAL TITLE: SCHEDULING NOTE STL STANDARD TITLE: ADMINISTRATIVE NOTE DATE OF NOTE: APR 13, 2024@17:19 ENTRY DATE: APR 13, 2024@17:19:34 AUTHOR: PAUL MCCALLUMIGNER: URGENCY: STATUS: COMPLETED Minimum Scheduling attempts to contact the [facility] have been made. RTC/Appt/Consult request will be discontinued after 14 days. Clinic: [facility] YANNICK: Mar First Call to [facility] - unsuccessful scheduling: Mar Discontinue date (14 calendar days after letter is mailed): Apr ADDITIONAL RESULTS FROM SCHEDULING ATTEMPTS: /alexandra/ PAUL MCCALLUM [facility] Signed: 04/13/2024 17:[address] [facility]
--- OUTSIDE RECORDS SUMMARY | 2024-05-25 14:37 | XMS_ITS ---
Author Name [place] Address [address] [place] [address] Care Team Providers Care Public Health Aides Teacher Name Role Phone TRACE DOUGLAS Primary Care [...] PART A Jul 15, 2014 PART A [id number] [phone] Ronda COMBS PATIENT MEDICARE (WNR) MEDICARE (M) PART B Jul 15, 2014 PART B [id number] [id number] Ronda COMBS PATIENT Selected Encounter This section includes the information on record at [place] for the Encounter. Date/Time Encounter Type Encounter Description Reason Pro vider Source Jun 09, 2023 02:16 PM Outpatient Encounter ADMIN PAT ACTIVTIES (MASNONCT) IHE Encounter Template Text not used by [place] Plan of Treatment: Future Appointments (+ 6 [...] 20 appointments. The data comes from all [facility]. Appointment Date/Time Appointment Type Appointme nt Facility Name Jun 11, 2023 10:30 AM AMBULATORY - REHAB [facility] Jun 11, 2023 11:30 AM AMBULATORY - MEDICINE [facility] Jun 18, 2023 08:45 AM AMBULATORY - MEDICINE [facility] Jul 22, 2023 09:45 AM AMBULATORY - REHAB MEDICIN [facility] Aug 26, 2023 02:00 PM AMBULATORY - MEDICINE [facility] Active, Pending, and Scheduled Orders This section includes a listing of several types of active, pending, and scheduled orders, including clinic medications orders, diagnostic test orders, procedure orders and consult orders; where the start date of the order is 45 days before the date of the Encounter or 45 days after the date of theEncounter. The data comes from all [facility]. Test Date/Time Test Type Test Details Facility Name May 20, 2023 12:00 AM Laboratory - Chemistry Order TSH (MA-PB-STL) GOLD/RED SST [facility] May 20, 2023 12:00 AM Laboratory - Chemistry Order HGA1C BLOOD [facility] May 20, 2023 12:00 AM Laboratory - Chemistry Order MICRAL/CREAT PROFILE (STL) URINE YELLOW [facility] May 20, 2023 12:00 AM Laboratory - Chemistry Order METHADONE PANEL (STL) URINE COLLECTION TUBE SP [facility] Jun 18, 2023 12:00 AM Laboratory - Chemistry Order COMPREHENSIVE METABOLIC PANEL GREEN LI/HEP BLD/PLAS PLASMA [facility] Jun 18, 2023 12:00 AM Laboratory - Chemistry Order LIPID PANEL (STL) GREEN LI/HEP BLD/PLAS PLASMA [facility] Jun 18, 2023 12:00 AM Laboratory - Chemistry Order TSH ([place]-PB-STL) GOLD/RED SST [facility] Jun 18, 2023 12:00 AM Laboratory - Chemistry Order PROST. SPECIFIC AG.(PB-STL) GOLD/RED SST [facility] Jun 18, 2023 12:00 AM Laboratory - Chemistry Order CBC BLOOD SP [facility] Jun 18, 2023 12:00 AM Laboratory - Chemistry Order HGA1C BLOOD SP [facility] Jun 18, 2023 12:00 AM Laboratory - Chemistry Order URINALYSIS (STL) URINE SP [facility] Social History: Smoking Status (Most current) and Tobacco Use (All prior to encounter date) This section includes the most current, and the historical, smoking and tobacco- related health factors from the [place] facility where the Encounter took place. Current Smoking Status This section includes the most current smoking, or tobacco-related health factor, from the [place] facility where the Encounter took place. Date/Time Current Smoking Status Comment Facil ity Nov 20, 2022 06:38 PM ORYX ADMIT TOBACCO SCREEN NO [facility] Tobacco Use History This section includes a history of the smoking, or tobacco-related health factors, that were collected on or before the date of the Encounter. The data comes from the [place] facility where the Encounter took place. Date/Time Smoking Status/Tobacco Use Comment F acility Apr 08, 2020 12:19 AM ORYX ADMIT TOBACCO SCREEN NO [facility] Nov 29, 2019 08:47 AM VA-TOBACCO FORMER USER [facility] Nov 29, 2019 08:47 AM VA-TOBACCO QUIT 15 YRS OR MORE [facility] Feb 02, 2014 07:53 PM QUIT TOBACCO >7 YEARS AGO [facility] Advance Directives: All historical and current Section Date Range: From patient's date of to the date document was created. This section includes ALL of a patient's completed or amended [place] Advance and Rescinded Directives. The entries below indicate that a directive exists for the patient, but an actual copy is not included with this document. The data comes from all [place] facilities. Date Advance Directives Provider Source Feb 05, 2014 ADVANCE DIRECTIVE DISCUSSION JAILENE RODRIGUEZ [facility] Encounter Notes: All associated encounter notes This section contains the clinical notes associated to the Encounter. Date/Time Encounter Note(s) Provider Source Jun 09, 2023 02:16 PM ADMINISTRATIVE NOT E: LOCAL TITLE: ADMINISTRATIVE STL STANDARD TITLE: ADMINISTRATIVE NOTE DATE OF NOTE: JUN 09, 2023@14:16 ENTRY DATE: JUN 09, 2023@14:17:08 AUTHOR: RAYMOND HARDY EXP COSIGNER: URGENCY: STATUS: COMPLETED Attempted to contact patient on 06/09/23 to remind patient of his upcoming Tele- Eye appt scheduled on 06/11/23 @ 11:30 AM. Left message for patient. /alexandra/ RAYMOND HARDY TELEHEALTH CLINICAL COMMUNITY MUSIC THERAPIST Signed: 06/09/2023 14:17 RAYMOND HARDY [facility]
--- OUTSIDE RECORDS SUMMARY | 2024-05-25 14:37 | XMS_ITS | Encounter Summary ---
Author Name [facility] [place] Organization [place] Address [address] [place] [address] Care Team Providers Care Traveling Repair Accountant Name Role Phone TRACE DOUGLAS Primary Care [...] PART A Jul 15, 2014 PART A [id number] [phone] Ronda CEJA PATIENT MEDICARE ([place]NR) MEDICARE (M) PART B Jul 15, 2014 PART B [id number] [phone] Ronda CEJA PATIENT Selected Encounter This section includes the information on record at [place] for the Encounter. Date/Time Encounter Type Encounter Description Reason Provider Source May 27, 2023 08:02 AM Outpatient Encounter ADMIN PAT ACTIVTIES (MASNONCT) GIRISH HARDY Encounter Template Text not used by [place] Plan of Treatment: Future Appointments (+ 6 [...] 20 appointments. The data comes from all [facility]. Appointment Date/Time Appointment Type Appointme nt Facility Name Jun 11, 2023 10:30 AM AMBULATORY - REHAB MEDICIN E [facility] Jun 11, 2023 11:30 AM AMBULATORY - MEDICINE [facility] Jun 18, 2023 08:45 AM AMBULATORY - MEDICINE [facility] Jul 22, 2023 09:45 AM AMBULATORY - REHAB MEDICIN E [facility] Aug 26, 2023 02:00 PM AMBULATORY - MEDICINE [facility] Active, Pending, and Scheduled Orders This section includes a listing of several types of active, pending, and scheduled orders, including clinic medications orders, diagnostic test orders, procedure orders and consult orders; where the start date of the order is 45 days before the date of the Encounter or 45 days after the date of theEncounter. The data comes from all [facility]. Test Date/Time Test Type Test Details Facility Name Apr 15, 2023 12:00 AM Laboratory - Chemistry Order MICRAL/CREAT PROFILE (STL) URINE YELLOW [facility] Apr 15, 2023 12:00 AM Laboratory - Chemistry Order TSH (MA-PB-STL) GOLD/RED SST SERUM [facility] Apr 15, 2023 12:00 AM Laboratory - Chemistry Order HGA1C BLOOD [facility] May 20, 2023 12:00 AM Laboratory - Chemistry Order TSH (MA-PB-STL) GOLD/RED SST SERUM [facility] May 20, 2023 12:00 AM Laboratory - Chemistry Order HGA1C BLOOD [facility] May 20, 2023 12:00 AM Laboratory - Chemistry Order MICRAL/CREAT PROFILE (STL) URINE YELLOW [facility] May 20, 2023 12:00 AM Laboratory - Chemistry Order METHADONE PANEL (STL) URINE COLLECTION TUBE [facility] Jun 18, 2023 12:00 AM Laboratory - Chemistry Order COMPREHENSIVE METABOLIC PANEL GREEN LI/HEP BLD/PLAS PLASMA SP [facility] Jun 18, 2023 12:00 AM Laboratory - Chemistry Order LIPID PANEL (STL) GREEN LI/HEP BLD/PLAS PLASMA SP [facility] Jun 18, 2023 12:00 AM Laboratory - Chemistry Order TSH (MA-PB-STL) GOLD/RED SST SERUM SP [facility] Jun 18, 2023 12:00 AM Laboratory - Chemistry Order PROST. SPECIFIC AG.(PB-STL) GOLD/RED SST SERUM SP [facility] Jun 18, 2023 12:00 AM Laboratory - Chemistry Order CBC BLOOD [facility] Jun 18, 2023 12:00 AM Laboratory - Chemistry Order HGA1C BLOOD [facility] Jun 18, 2023 12:00 AM Laboratory - Chemistry Order URINALYSIS (STL) URINE [facility] Social History: Smoking Status (Most current) and Tobacco Use (All prior to encounter date) This section includes the most current, and the historical, smoking and tobacco- related health factors from the [place] facility where the Encounter took place. Current Smoking Status This section includes the most current smoking, or tobacco-related health factor, from the [place] facility where the Encounter took place. Date/Time Current Smoking Status Comment [facility] Nov 20, 2022 06:38 PM ORYX ADMIT TOBACCO SCREEN NO [facility] Tobacco Use History This section includes a history of the smoking, or tobacco-related health factors, that were collected on or before the date of the Encounter. The data comes from the [place] facility where the Encounter took place. Date/Time [...] ALL of a patient's completed or amended [place] Advance and Rescinded Directives. The entries below indicate that a directive exists for the patient, but an actual copy is not included with this document. The data comes from all [place] facilities. Date Advance Directives Provider Source Feb 05, 2014 ADVANCE DIRECTIVE DISCUSSION JAILENE RODRIGUEZ [facility] Encounter Notes: All associated encounter notes This section contains the clinical notes associated to the Encounter. Date/Time Encounter Note(s) Provider Source May 27, 2023 08:02 AM PHYSICIAN LETTERS: LOCAL TITLE: NO CONTACT LETTER STL STANDARD TITLE: PHYSICIAN LETTERS DATE OF NOTE: MAY 27, 2023@08:02 ENTRY DATE: MAY 27, 2023@08:02:28 AUTHOR: RAYMOND HARDY EXP SIMBAIGNER: URGENCY: STATUS: COMPLETED [address] [address] MAY 27, 2023 WILFREDO CEJA [address] [place] [address] Dear Wilfredo Ceja, Thank you for choosing the [facility] as your primary choice for health care. As a partner in your health care, we are attempting to contact you because we have been unsuccessful in reaching you by phone to schedule your clinic appointment. Please call us at [phone], extension [phone] to speak to us regarding making an appointment in the Tele-Eye clinic. Your good health is important to [...] the clinic to inquire about scheduling. Sincerely, RAYMOND HARDY TELEHEALTH CLINICAL ROLLER HELPER WILFREDO CEJA JEFFREY [facility] May 27, 2023 08:02 AM ADMINISTRATIVE NOT E: LOCAL TITLE: SCHEDULING NOTE STL STANDARD TITLE: ADMINISTRATIVE NOTE DATE OF NOTE: MAY 27, 2023@08:02 ENTRY DATE: MAY 27, 2023@08:03:01 AUTHOR: RAYMOND HARDY EXP COSIGNER: URGENCY: STATUS: COMPLETED Minimum Scheduling attempts to contact the [facility] have been made. RTC/Appt/Consult request will be discontinued after 14 days. Clinic: TELE-EYE Y[facility]: May Unable to contact [facility], letter sent: May Discontinue date (14 calendar days after letter is mailed): May ADDITIONAL RESULTS FROM SCHEDULING ATTEMPTS: /alexandra/ RAYMOND HARDY TELEHEALTH CLINICAL ROLLER HELPER Signed: 05/27/2023 08:03 RAYMOND HARDY [facility]
--- OUTSIDE RECORDS SUMMARY | 2024-05-25 14:37 | XMS_ITS ---
Author Name [facility] [place] [facility] [place] Address [address] [place] [address] Care Team Providers Care Manager Epic Name Role Phone TRACE DOUGLAS Primary Care [...] PART A Jul 15, 2014 PART A [id number] Ronda COMBS PATIENT MEDICARE ([place]NR) MEDICARE (M) PART B Jul 15, 2014 PART B [id number] Ronda COMBS PATIENT Selected Encounter This section includes the information on record at [place] for the Encounter. Date/Time Encounter Type Encounter Description Reason Pro vider Source Jun 03, 2023 11:35 AM Outpatient Encounter ADMIN PAT ACTIVTIES (MASNONCT) IHE Encounter Template Text not used by [place] Plan of Treatment: Future Appointments (+ 6 [...] 20 appointments. The data comes from all [facility]. Appointment Date/Time Appointment Type Appointme nt Facility Name Jun 11, 2023 10:30 AM AMBULATORY - REHAB MEDICIN E [facility] Jun 11, 2023 11:30 AM AMBULATORY - MEDICINE [facility] Jun 18, 2023 08:45 AM AMBULATORY - MEDICINE [facility] Jul 22, 2023 09:45 AM AMBULATORY - REHAB MEDICIN [facility] Aug 26, 2023 02:00 PM AMBULATORY - MEDICINE [facility] Active, Pending, [...] of theEncounter. The data comes from all [facility]. Test Date/Time Test Type Test Details Facility Name May 20, 2023 12:00 AM Laboratory - Chemistry Order TSH (MA-PB-STL) GOLD/RED SST SERUM SP [facility] May 20, 2023 12:00 AM Laboratory - Chemistry Order HGA1C BLOOD SP [facility] May 20, 2023 12:00 AM Laboratory - Chemistry Order MICRAL/CREAT PROFILE (STL) URINE YELLOW [facility] May 20, 2023 12:00 AM Laboratory - Chemistry Order METHADONE PANEL (STL) URINE COLLECTION TUBE SP [facility] Jun 18, 2023 12:00 AM Laboratory - Chemistry Order LIPID PANEL (STL) GREEN LI/HEP BLD/PLAS PLASMA [facility] Jun 18, 2023 12:00 AM Laboratory - Chemistry Order COMPREHENSIVE METABOLIC PANEL GREEN LI/HEP BLD/PLAS PLASMA [facility] Jun 18, 2023 12:00 AM Laboratory - Chemistry Order CBC BLOOD [facility] Jun 18, 2023 12:00 AM Laboratory - Chemistry Order TSH (MA-PB-STL) GOLD/RED SST SERUM SP [facility] Jun 18, 2023 12:00 AM Laboratory - Chemistry Order PROST. SPECIFIC AG.(PB-STL) GOLD/RED SST SERUM SP [facility] Jun 18, 2023 12:00 AM Laboratory - Chemistry Order URINALYSIS (STL) URINE [facility] Jun 18, 2023 12:00 AM Laboratory - Chemistry Order HGA1C BLOOD SP [facility] Social History: Smoking Status (Most current) and Tobacco Use (All prior to encounter date) This section includes the most current, and the historical, smoking and tobacco- related health factors from the [place] facility where the Encounter took place. Current Smoking Status This section includes the most current smoking, or tobacco-related health factor, from the [place] facility where the Encounter took place. Date/Time Current Smoking Status Comment [facility] Nov 20, 2022 06:38 PM ORYX ADMIT TOBACCO SCREEN NO [facility] Tobacco Use History This section includes a history of the smoking, or tobacco-related health factors, that were collected on or before the date of the Encounter. The data comes from the [place] facility where the Encounter took place. Date/Time Smoking Status/Tobacco Use Comment F acility Apr 08, 2020 12:19 AM ORYX ADMIT TOBACCO SCREEN NO [facility] Nov 29, 2019 08:47 AM VA-TOBACCO FORMER USER [facility] Nov 29, 2019 08:47 AM VA-TOBACCO QUIT 15 YRS OR MORE [facility] Feb 02, 2014 07:53 PM QUIT TOBACCO >7 YEARS AGO [facility] Advance Directives: All historical and current Section Date Range: From patient's date of to the date document was created. This section includes ALL of a patient's completed or amended [place] Advance and Rescinded Directives. The entries below indicate that a directive exists for the patient, but an actual copy is not included with this document. The data comes from all [place] facilities. Date Advance Directives Provider Source Feb 05, 2014 ADVANCE DIRECTIVE DISCUSSION JAILENE RODRIGUEZ [facility] Encounter Notes: All associated encounter notes This section contains the clinical notes associated to the Encounter. Date/Time Encounter Note(s) Provider Source Jun 03, 2023 11:35 AM ADMINISTRATIVE NOT E: LOCAL TITLE: CCC: SCHEDULING ADMINISTRATION STANDARD TITLE: ADMINISTRATIVE NOTE DATE OF NOTE: JUN 03, 2023@11:35:39 ENTRY DATE: JUN 03, 2023@11:35:39 AUTHOR: FERNANDO DODD COSIGNER: URGENCY: STATUS: COMPLETED Patient Demographics Patient Name: APPLE COMBS Patient Primary Phone: [phone] Patient Primary Address: [address] [place] [address] Patient : 1950 Patient Age: 72 Caller/Recipient Relation to Patient: Self Scheduling Patient Expects Callback: No Administrative Administrative Note Reason: Other Administrative Note Comments: called stating that he had forgotten about today's F/U appt with his PCP. He had me cancel appt and states that he does not need to reschedule. /alexandra/ FERNANDO DODD [facility] Signed: 06/03/2023 11:35 Receipt Acknowledged By: 06/03/2023 12:12 /es/ MONICA HARLEY RN, BSN REGISTERED NURSE 06/03/2023 12:00 /es/ ISABEL GRAY LICENSED PRACTICAL NURSE 06/09/2023 10:51 /es/ SAHIL WILLIAMSON ADVANCED OYSTER WASHER FERNANDO DODD [facility]
--- OUTSIDE RECORDS SUMMARY | 2024-05-25 14:37 | XMS_ITS | Encounter Summary ---
Author Name [facility] [place] Organization [place] Address [address] [place] [address] Care Team Providers Care Supercharge Repair Supervisor Name Role Phone TRACE DOUGLAS Primary [...] PART A Jul 15, 2014 PART A [id number] [phone] Ronda COMBS PATIENT MEDICARE ([place]) MEDICARE (M) PART B Jul 15, 2014 PART B [id number] Ronda COMBS PATIENT Selected Encounter This section includes the information on record at [place] for the Encounter. Date/Time Encounter Type Encounter Description Reason Provider Source May 27, 2023 01:27 PM Outpatient Encounter PRIMARY CARE/MEDICINE EVELIA GRAY Encounter Template Text not used by [place] Plan of Treatment: Future Appointments (+ 6 [...] 20 appointments. The data comes from all [facility]. Appointment Date/Time Appointment Type Appointme nt Facility Name Jun 11, 2023 10:30 AM AMBULATORY - REHAB MEDICIN E [facility] Jun 11, 2023 11:30 AM AMBULATORY - MEDICINE [facility] Jun 18, 2023 08:45 AM AMBULATORY - MEDICINE [facility] Jul 22, 2023 09:45 AM AMBULATORY - REHAB MEDICIN [facility] Aug 26, 2023 02:00 PM AMBULATORY - MEDICINE [facility] Active, Pending, and Scheduled Orders This section includes a listing of several types of active, pending, and scheduled orders, including clinic medications orders, diagnostic test orders, procedure orders and consult orders; where the start date of the order is 45 days before the date of the Encounter or 45 days after the date of theEncounter. The data comes from all [facility]. Test Date/Time Test Type Test Details Facility Name Apr 15, 2023 12:00 AM Laboratory - Chemistry Order MICRAL/CREAT PROFILE (STL) URINE YELLOW [facility] Apr 15, 2023 12:00 AM Laboratory - Chemistry Order TSH (MA-PB-STL) GOLD/RED SST SERUM [facility] Apr 15, 2023 12:00 AM Laboratory - Chemistry Order HGA1C BLOOD [facility] May 20, 2023 12:00 AM Laboratory - Chemistry Order TSH (MA-PB-STL) GOLD/RED SST SERUM [facility] May 20, 2023 12:00 AM Laboratory - Chemistry Order HGA1C BLOOD [facility] May 20, 2023 12:00 AM Laboratory - Chemistry Order MICRAL/CREAT PROFILE (STL) URINE YELLOW [facility] May 20, 2023 12:00 AM Laboratory - Chemistry Order METHADONE PANEL (STL) URINE COLLECTION TUBE [facility] Jun 18, 2023 12:00 AM Laboratory - Chemistry Order LIPID PANEL (STL) GREEN LI/HEP BLD/PLAS PLASMA SP [facility] Jun 18, 2023 12:00 AM Laboratory - Chemistry Order COMPREHENSIVE METABOLIC PANEL GREEN LI/HEP BLD/PLAS PLASMA SP [facility] Jun 18, 2023 12:00 AM Laboratory - Chemistry Order CBC BLOOD SP [facility] Jun 18, 2023 12:00 AM Laboratory - Chemistry Order TSH (MA-PB-STL) GOLD/RED SST SERUM SP [facility] Jun 18, 2023 12:00 AM Laboratory - Chemistry Order PROST. SPECIFIC AG.(PB-STL) GOLD/RED SST SERUM SP [facility] Jun 18, 2023 12:00 AM Laboratory - Chemistry Order HGA1C BLOOD [facility] Jun 18, 2023 12:00 AM Laboratory - Chemistry Order URINALYSIS (STL) URINE SP [facility] Social History: Smoking Status (Most current) and Tobacco Use (All prior to encounter date) This section includes the most current, and the historical, smoking and tobacco- related health factors from the [place] facility where the Encounter took place. Current Smoking Status This section includes the most current smoking, or tobacco-related health factor, from the [place] facility where the Encounter took place. Date/Time Current Smoking Status Comment [facility] Nov 20, 2022 06:38 PM ORYX ADMIT TOBACCO SCREEN NO [facility] Tobacco Use History This section includes a history of the smoking, or tobacco-related health factors, that were collected on or before the date of the Encounter. The data comes from the [place] facility where the Encounter took place. Date/Time Smoking Status/Tobacco Use Comment [facility]ility Apr 08, 2020 12:19 AM ORYX ADMIT TOBACCO SCREEN NO [facility] Nov 29, 2019 08:47 AM VA-TOBACCO FORMER USER [facility] Nov 29, 2019 08:47 AM VA-TOBACCO QUIT 15 YRS OR MORE [facility] Feb 02, 2014 07:53 PM QUIT TOBACCO >7 YEARS AGO [facility] Advance Directives: All historical and current Section Date Range: From patient's date of to the date document was created. This section includes ALL of a patient's completed or amended [place] Advance and Rescinded Directives. The entries below indicate that a directive exists for the patient, but an actual copy is not included with this document. The data comes from all [place] facilities. Date Advance Directives Provider Source Feb 05, 2014 ADVANCE DIRECTIVE DISCUSSION JAILENE RODRIGUEZ [facility] Encounter Notes: All associated encounter notes This section contains the clinical notes associated to the Encounter. Date/Time Encounter Note(s) Provider Source May 27, 2023 01:27 PM NURSING NOTE: LOCAL TITLE: V15 PACT TELEPHONE CONTACT NOTE ST STANDARD TITLE: NURSING NOTE DATE OF NOTE: MAY 27, 2023@13:27 ENTRY DATE: MAY 27, 2023@13:27:58 AUTHOR: ISABEL GRAY EXP COSIGNER: URGENCY: STATUS: COMPLETED Patient/Other contacted: Patient Patient Identifiers : Full Name Date of Appointment Reminder: Outbound call to patient to remind of upcoming: Provider in-person with Cathryn DONOVAN Appointment is scheduled for: May@11:30 Appointment type: In-person, instructed to: Write down any questions you may have to discuss with your provider at your appointment. Bring any forms or non-VA records if needed. Arrive 15 mins early to check-in allowing time for traffic and parking. Take your medicine as you normally would that morning, and bring all your medicine with you to the appointment: this includes any purchased over the counter that you are using. Clinical reminders: Applicable nurse reminders due at the time of this encounter will be completed at the end of note. Encouraged to contact PC Team with questions/concerns or if need to reschedule/cancel appointment. Provided/reviewed the nurse advice line (ext [phone]) for medical needs after hours. Contact understanding verified by teach back: Yes Total time spent on phone: 5 min COVID-19 Immunization: Refused Pfizer Monovalent COVID-19 vaccine Immunization: COVID-19 (PFIZER), MRNA, LNP-S, PF, KILO-SUCROSE, 30 MCG/0.3 ML (AGES 12+ YEARS) Refusal Reason: PATIENT DECISION Patient refuses all immunization(s) in the COVID-19 group Date Documented: 05/27/23 13:29 /alexandra/ ISABEL GRAY LICENSED PRACTICAL NURSE Signed: 05/27/2023 13:29 ISABEL GRAY [facility]
--- OUTSIDE RECORDS SUMMARY | 2024-05-25 14:38 | XMS_ITS | Encounter Summary ---
Author Name [facility] Address [address] [place] [address] Care Team Providers Care Distribution Operations Supervisor Name Role Phone TRACE DOUGLAS Primary [...] PART A Jul 15, 2014 PART A [id number] [phone] Ronda CEJA PATIENT MEDICARE (WNR) MEDICARE (M) PART B Jul 15, 2014 PART B [id number] Ronda CEJA PATIENT Selected Encounter This section includes the information on record at OR for the Encounter. Date/Time Encounter Type Encounter Description Reason Provider Source Jun 16, 2023 08:08 AM TELEHEALTH FACILITY FEE ADMIN PAT ACTIVTIES (MASNONCT) ICD-10-CM Z13.5 Encounter for screening for eye and ear disorders JOSHUA JACKSON IHRonda Encounter Template Text not used by [facility] Assessments - Encounter Diagnoses This section includes the primary and secondary diagnoses documented for the Encounter. 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 This section includes future appointments and future orders which are active, pending or scheduled. Future Appointments This section includes appointments that were scheduled to occur 6 months from the date of the Encounter, up to a maximum of 20 appointments. The data comes from all [facility]. Appointment Date/Time Appointment Type Appointme nt Facility Name Jun 18, 2023 08:45 AM AMBULATORY - MEDICINE [facility] Jul 22, 2023 09:45 AM AMBULATORY - REHAB MEDICIN E [facility] Aug 26, 2023 02:00 PM AMBULATORY - MEDICINE [facility] Dec 14, 2023 10:00 AM AMBULATORY - SURGERY [facility] Active, Pending, and Scheduled Orders This [...] from all [facility]. Test Date/Time Test Type Test Details Facility Name May 20, 2023 12:00 AM Laboratory - Chemistry Order TSH (MA-PB-STL) GOLD/RED SST SERUM SP [facility] May 20, 2023 12:00 AM Laboratory - Chemistry Order HGA1C BLOOD SP [facility] May 20, 2023 12:00 AM Laboratory - Chemistry Order MICRAL/CREAT PROFILE (STL) URINE YELLOW SP [facility] May 20, 2023 12:00 AM Laboratory - Chemistry Order METHADONE PANEL (STL) URINE COLLECTION TUBE SP [facility] Jun 18, 2023 12:00 AM Laboratory - Chemistry Order COMPREHENSIVE METABOLIC PANEL GREEN LI/HEP BLD/PLAS PLASMA SP [facility] Jun 18, 2023 12:00 AM Laboratory - Chemistry Order LIPID PANEL (STL) GREEN LI/HEP BLD/PLAS PLASMA SP [facility] Jun 18, 2023 12:00 AM Laboratory - Chemistry Order CBC BLOOD [facility] Jun 18, 2023 12:00 AM Laboratory - Chemistry Order TSH (MA-PB-STL) GOLD/RED SST SERUM [facility] Jun 18, 2023 12:00 AM Laboratory - Chemistry Order PROST. SPECIFIC AG.(PB-STL) GOLD/RED SST SERUM [facility] Jun 18, 2023 12:00 AM Laboratory - Chemistry Order HGA1C BLOOD [facility] Jun 18, 2023 12:00 AM Laboratory - Chemistry Order URINALYSIS (STL) URINE SP [facility] Social History: Smoking Status (Most current) and Tobacco Use (All prior to encounter date) This section includes the most current, and the historical, smoking and tobacco- related health factors from the [place] facility where the Encounter took place. Current Smoking Status This section includes the most current smoking, or tobacco-related health factor, from the [place] facility where the Encounter took place. Date/Time Current Smoking Status Comment [facility] Nov 20, 2022 06:38 PM ORYX ADMIT TOBACCO SCREEN NO [facility] Tobacco Use History This section includes a history of the smoking, or tobacco-related health factors, that were collected on or before the date of the Encounter. The data comes from the [place] facility where the Encounter took place. Date/Time Smoking Status/Tobacco Use Comment F acility Apr 08, 2020 12:19 AM ORYX ADMIT TOBACCO SCREEN NO [facility] Nov 29, 2019 08:47 AM VA-TOBACCO FORMER USER [facility] Nov 29, 2019 08:47 AM VA-TOBACCO QUIT 15 YRS OR MORE [facility] Feb 02, 2014 07:53 PM QUIT TOBACCO >[address] [facility] Advance Directives: All historical and current Section Date Range: From patient's date of to the date document was created. This section includes ALL of a patient's completed or amended VA Advance and Rescinded Directives. The entries below indicate that a directive exists for the patient, but an actual copy is not included with this document. The data comes from all [place] facilities. Date Advance Directives Provider Source Feb 05, 2014 ADVANCE DIRECTIVE DISCUSSION JAILENE RODRIGUEZ [facility] Encounter Notes: All associated encounter notes This section contains the clinical notes associated to the Encounter. Date/Time Encounter Note(s) Provider Source Jun 16, 2023 08:12 AM LETTERS: LOCAL TITLE: TELE-EYE RESULTS LETTER STANDARD TITLE: LETTERS DATE OF NOTE: JUN 16, 2023@08:12 ENTRY DATE: JUN 16, 2023@08:12:53 AUTHOR: RAYMOND HARDY COSIGNER: URGENCY: STATUS: COMPLETED JUN 16, 2023 [facility] CEJA [address] [place] [address] Dear Apple Ceja: You are receiving this letter in regard to your recent [facility] EYE SCREENING. The purpose of the screening is to detect specific vision-threatening conditions such as diabetic retinopathy (if you are diabetic), macular degeneration, and glaucoma. Early detection of eye disease can be important to reduce the risk of permanent vision loss. Your information and testing was reviewed by a licensed [facility] eye care provider. The date of review and findings are noted below: Screening Exam Findings 06/16/2023 *DIABETIC RETINOPATHY DETECTED* No macular degeneration apparent No glaucoma apparent No other time-sensitive findings apparent Recommendations: 06/16/2023 Return to either VA Ophthalmology or Optometry in 6 MONTHS If a VA eye care appointment has been recommended, please call to schedule at least 30-60 days in advance of the recommended return date. Leandro Hagen EXT [id number] If you have already been contacted by the scheduling team and/or have an appointment scheduled, no action is necessary. *Please note that incidental findings outside the primary focus of this screening may be noted within the detailed report of the visit. This report can be accessed online through [employer] ([email or web address]) or requested through your VA Medical Records/Release of Information office. If you have been seen by a non-VA eye care provider, please bring your records to your next [facility] appointment to be scanned into your medical record. If you are a tobacco user, [place] provides tobacco cessation services which can reduce the risk of eye disease as well as risks to your overall health. Please discuss with your [facility] Primary Care team for more information. Thank you for allowing us to serve you. [place] Healthcare Team Digital retinal imaging has been shown to be an effective method of screening for specific eye conditions, but cannot substitute for a comprehensive eye exam. Comprehensive eye exams are recommended every 1-2 years, or more frequently as determined by the presence of risk factors, early signs or symptoms, or known history of eye disease. Sincerely, RAYMOND HARDY [facility] Jun 16, 2023 08:08 AM OPTOMETRY CONSULT: LOCAL TITLE: TELE-EYE SCREENING CONSULT STANDARD TITLE: OPTOMETRY CONSULT DATE OF NOTE: JUN 16, 2023@08:08 ENTRY DATE: JUN 16, 2023@08:08:28 AUTHOR: RAYMOND HARDY EXP COSIGNER: URGENCY: STATUS: COMPLETED FOLLOW-UP Note Tele-Eye Imaging Consult request has been COMPLETED. The summary of findings are below. To view a detailed report from the eye provider (reader), with the case selected on the CONSULT tab, use the top toolbar to select ACTION > CONSULT TRACKING > DISPLAY RESULTS. CONSULT RESULTS: Diabetic Retinopathy: Abnormal - Diabetic Retinopathy Present Macular Degeneration: Normal - No macular degeneration apparent Glaucoma: Normal - No glaucomatous nerve damage apparent Other Findings: No other time-sensitive findings RECOMMENDATIONS PER DR. JACKSON: Refer for [id number] [facility] eye exam Refer to: EITHER [facility] or [facility] Optometry 6 months: Dec Patient was mailed a follow up letter on 06/16/23 to make an appointment within the next 6 months for a comprehensive eye exam at the eye clinic. Instructions on how to direct schedule were included, no need for a consult. /alexandra/ RAYMOND HARDY TELEHEALTH CLINICAL COMB SETTER Signed: 06/16/2023 08:10 RAYMOND HARDY Mumtaz [facility]
--- OUTSIDE RECORDS SUMMARY | 2024-05-25 14:38 | XMS_ITS ---
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 Date/Time Encounter Type Encounter Description Reason Provider Source Apr 25, 2024 05:29 PM Outpatient Encounter GENERAL INTERNAL [facility]IC[facility] [place] [facility] Encounter Template Text not used by [place] Plan of Treatment: Future Appointments (+ 6 [...] of theEncounter. The data comes from all [place] treatment facilities. Test Date/Time Test Type Test Details Facility Name Apr 04, 2024 12:00 AM Laboratory - Chemi stry Order HGA1C BLOOD SP [facility] Apr 04, 2024 12:00 AM Laboratory - Chemi stry Order LIPID PANEL (STL) GREEN LI/HEP BLD/PLAS PLASMA SP [facility] Apr 04, 2024 12:00 AM Laboratory - Chemi stry Order MICRAL/CREAT PROFILE (STL) URINE YELLOW SP [facility] Social History: Smoking Status (Most current) and Tobacco Use (All prior to encounter date) This section includes the most current, and the historical, smoking and tobacco- related health factors from the [place] facility where the Encounter took place. Current Smoking Status This section includes the most current smoking, or tobacco-related health factor, from the [place] facility where the Encounter took place. Date/Time Current Smoking Status Comment Facil ity Nov 20, 2022 06:38 PM ORYX ADMIT TOBACCO SCREEN NO [facility] Tobacco Use History This section includes a history of the smoking, or tobacco-related health factors, that were collected on or before the date of the Encounter. The data comes from the [place] facility where the Encounter took place. Date/Time Smoking Status/Tobacco Use Comment F acility Apr 08, 2020 12:19 AM ORYX ADMIT TOBACCO SCREEN NO [facility] Nov 29, 2019 08:47 AM VA-TOBACCO FORMER USER [facility] Nov 29, 2019 08:47 AM VA-TOBACCO QUIT 15 YRS OR MORE [facility] Feb 02, 2014 07:53 PM QUIT TOBACCO >7 YEARS AGO [facility] Advance Directives: All historical and current Section Date Range: From patient's date of to the date document was created. This section includes ALL of a patient's completed or amended [place] Advance and Rescinded Directives. The entries below indicate that a directive exists for the patient, but an actual copy is not included with this document. The data comes from all [place] facilities. Date Advance Directives Provider Source Feb 05, 2014 ADVANCE DIRECTIVE DISCUSSION JAILENE RODRIGUEZ [facility] Encounter Notes: All associated encounter notes This section contains the clinical notes associated to the Encounter. Date/Time Encounter Note(s) Provider Source May 17, 2024 10:34 AM ADDENDUM: LOCAL TITLE: Addendum STANDARD TITLE: ADDENDUM DATE OF NOTE: MAY 17, 2024@10:34:04 ENTRY DATE: MAY 17, 2024@10:34:05 AUTHOR: CHARLENE BELLAMY EXP COSIGNER: URGENCY: STATUS: COMPLETED Discharge Disposition Date of discharge: May Disposition Discharge to Penitentiary Facility Comment: [facility] and rehab [place] records sent securely to [place] PCP and RNCM. Alerting PCP team to this note for continuity of care. Records r/t this episode of care sent to [facility] for scanning. EXPERT FROM ER DISCHARGE NOTE BELOW Hospital Course: Goals of care, counseling/discussion Assessment & Plan 04/25 Spoke with Wu (son, poa) he is in agreament for SNF. As his/pt's is likely going to Hospice today in [facility] on another floor. SW with 6th and 11 th floor working together to get a safe DC to likely SNF. 04/27 Continued placement plan between floors with him and (on a sperate unit.) 04/28 Pt co-habit in room with that is on hospice. 05/09 yesterday morning. Awaiting SNF bed for patient. Patient is medically stable for discharge, SW/CM updated. Discharge pending facility bed availability Encounter for medication review Assessment & Plan Home medications reviewed and updated in admissions tab Discharge planning issues Assessment & Plan - 04/23: awaiting OR with Orthopedics, currently NPO, awaiting PT/OT -04/24: ORIF with ortho, remains NWB, PT/OT to see -04/26-05/04: Patient is medically stable for discharge, SW/CM updated. 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 05/10 Awaiting SNF bed - 05/12: Patient is medically stable for discharge, SW/CM updated. Discharge pending facility acceptance -05/16 Discharged to SNF Treatment note competed 04/25 Acute traumatic pain Assessment & Plan - Tylenol 650 mg q6h PRN - Robaxin 750mg TID - Oxycodone 5mg q4h PRN -Pain well controlled on above regimen. Hyperlipidemia Assessment & Plan Rosuvastatin 20mg daily Hypothyroidism Assessment & Plan - Continue Synthroid 150mcg daily Diabetes (HCC) Assessment & Plan - Hold Metformin and Glipizide - HgbA1c (04/23): 6.3 - SSI - continue to trend glucose -will resume home medications at discharge. Hypertension Assessment & Plan - Continue Amlodipine 2.5mg daily - Continue Hydrochlorothiazide 25mg daily - Continue Aspirin 81mg daily * Closed fracture of distal end of left fibula, unspecified fracture morphology, initial encounter Assessment & Plan #L liss equivalent ankle fracture - Orthopedic consult -splinted in ED - L ankle xr (04/22): Unchanged alignment of comminuted distal left fibular fracture with mild residual lateral displacement. Mild widening of the medial clear space is unchanged, fracture of the posteromedial talus is better seen on the prior examination. Volkmann's tubercle avulsion fracture is unchanged, moderate soft tissue swelling - s/p OR 04/24 ORIF left ankle -04/24 POD 0 ORIF left ankle, remains NWB, PT/OT to evaluate, DVT prophylaxis - [facility] LLE - Maintain SLS until follow up - Sutures/Gallagher removed by ortho while inpatient. - [facility] boot to LLE - Will discharge with Aspirin 81mg BID for DVT prophylaxis - Follow Up: Patient has follow up scheduled on 05/16/[address] Morris located at [facility] 6A Operative Procedures Performed: OPEN REDUCTION INTERNAL FIXATION - ANKLE (Left: Ankle) Discharge Disposition: Discharge to SNF START taking these medications: acetaminophen 325 mg tablet 650 mg, oral, Every 6 hours PRN Commonly known as: TYLENOL bisacodyL 10 mg suppository 10 mg, rectal, Daily PRN Commonly known as: DULCOLAX cholecalciferol 1,000 unit capsule 1,000 Units, oral, Daily Commonly known as: VITAMIN D-3 lidocaine 4 % adhesive patch,medicated 1 patch, transdermal, Every 24 hours Commonly known as: ASPERCREME methocarbamoL 750 mg tablet 750 mg, oral, 3 times daily Commonly known as: ROBAXIN polyethylene glycol 17 gram packet 17 g, oral, 2 times daily Commonly known as: MIRALAX ramelteon 8 mg tablet 8 mg, oral, Nightly PRN Commonly known as: ROZEREM senna-docusate 8.6-50 mg 2 tablets, oral, 2 times daily Commonly known as: PERICOLACE CHANGE how you take these medications: aspirin 81 mg chewable tablet 81 mg, oral, 2 times daily Doctor's comments: Once course is completed you can resume once a day dosing What changed: when to take this gabapentin 300 mg capsule 300 mg, oral, 3 times daily Commonly known as: NEURONTIN What changed: how much to take STOP taking these medications: meloxicam 15 mg tablet Commonly known as: MOBIC traMADoL 50 mg tablet Commonly known as: ULTRAM Future Appointments Date Time Provider Department Center 06/20/2024 10:20 AM Aguilar Morris MD [facility]A OS /es/ CHARLENE MURO RN REGISTERED NURSE Signed: 05/17/2024 10:38 Receipt Acknowledged By: 05/17/2024 11:13 /es/ MONICA HARLEY RN, BSN REGISTERED NURSE 05/18/2024 12:34 /es/ Inez Douglas PA-C PA-C --- Original Document --- 04/22/24 [facility] SELF PRESENTING CARE COORD PLAN 657 STL: Emergency Notification Intake Date Presenting to the Facility: Apr Method of Contact: Notified from [facility] worklist Notification ID: [id number] [facility] Referral #: [id number] [facility] Name: Hospital: [facility] Address: City: [facility] State: [place] Chief complaint: Fell. C/O L ankle pain. Hit his head when he fell. Disposition Admitted Route of Admission: ER Date of Admission: Apr Admitting Diagnosis: Closed fx L fibula, closed nondisplaced fx C2. Alerting PCP team to this note for continuity of care. Records relevant to this episode of care may be found in [facility]. The patient is currently hospitalized as of 04/25/24. Per most recent progress note: Dx: L liss equivalent ankle fx. 04/24/24 ORIF L ankle fx/dl. WB Status: Non-weight bearing left lower extremity Immobilization: SLS Activity: Ambulate with assist Therapy: PT/OT for OOB/mobilization as tolerated (post op) Precautions: None Antibiotics: Periop: Ancef 1-2gm IV Q8hrs for 24 hours postoperative Wound Care: Maintain surgical dressing until follow-up Sutures/Gallagher: Will be removed 3 weeks after surgical date. Please include on discharge orders if patient is going to a facility. If the patient is still in the hospital at that time they will be removed by the orthopedic team. Dispo: Pending progress, postoperative recovery, and progress with therapy Follow-Up: Patient has follow up scheduled on 05/16/[address] Morris located at [address] with 6th and 11 th floor working together to get a safe DC to likely SNF. /alexandra/ Winston Rowe MSN, RN V15 [facility] Signed: 04/25/2024 17:38 Receipt Acknowledged By: 04/27/2024 08:15 /alexandra/ Inez Douglas PA-C PA-C 04/26/2024 08:50 /alexandra/ MONICA HARLEY RN, BSN REGISTERED NURSE 04/26/2024 ADDENDUM STATUS: COMPLETED remains hospitalized. See [facility] records for updates. /alexandra/ MONICA HARLEY RN, BSN REGISTERED NURSE Signed: 04/26/2024 08:50 04/27/2024 ADDENDUM STATUS: COMPLETED CONTINUED STAY REVIEW Contact Date: Apr Date of Admission: Apr Date of Procedure: Facility Name: [facility] Name: [facility] Dept: [facility] Phone: [facility] Fax Number: Method of Contact: Inpatient level of care required: Medicine EXPERT FROM HOSPITAL NOTE BELOW Currently hospitalized. Per most recent progress note: Interval History: HE reports his pain is controlled, he agrees he is ready for SNF as SW is working with the 11th floor SW for dual placement of him and his for a separate medical concern. No BM and bowel regimen increased. -04/26 Patient is medically stable for discharge, SW/CM updated. Discharge pending facility bed availability PER CM NOTE DATED 04/27- CM completed the referral forms for the pt to be considered for SNF by the [facility]. CM faxed info to Jd Stratton Anticipated postacute care needs: Alerting PCP team to this note for continuity of care. /es/ CHARLENE SILVAN RN REGISTERED NURSE Signed: 04/27/2024 08:41 Receipt Acknowledged By: 04/27/2024 14:07 /alexandra/ Inez Douglas PA-C PA-C 04/27/2024 09:13 /es/ MONICA HARLEY RN, BSN REGISTERED NURSE 05/02/2024 ADDENDUM STATUS: COMPLETED CONTINUED STAY REVIEW Contact Date: Apr Inpatient level of care required: Surgical Records relevant to this episode of care reviewed. Patient is currently hospitalized. Excerpt from most recent progress note: Trauma Surgical Assessment and Plan Goals of care, counseling/discussion Assessment & Plan 04/25 Spoke with Wu (son, poa) he is in agreament for SNF. As his/pt's is likely going to Hospice today in [facility] on another floor. SW with 6th and 11 th floor working together to get a safe DC to likely SNF. 04/27 Continued placement plan between floors with him and (on a sperate unit.) 04/28 Pt co-habit in room with that is on hospice. Encounter for medication review Assessment & Plan Home medications reviewed and updated in admissions tab Discharge planning issues Assessment & Plan - 04/23: awaiting OR with Orthopedics, currently NPO, awaiting PT/OT -04/24: ORIF with ortho, remains NWB, PT/OT to see -04/26-05/01: Patient is medically stable for discharge, SW/CM updated. Discharge pending facility bed availability Anticipated postacute care needs: placement, ortho f/u The following is an excerpt from the most recent Care Management/UM note from EHR: From 04/29 note: Per Medical Chart/Rounds/IDR: Patient medically ready for d/c. ADD: 05/01 Discharge Barriers: [facility] referral pending for SNF Education Needs Identified (plan): [facility] referral for SNF at the [facility] sent yesterday, 04/28. CM called and spoke with Jd stratton today and confirmed that it was received. It has been sent to MD for review. No updates as of yet. From 05/01 note: CM called [place] [facility] about request sent to them last week at [phone] no answer left a VM asking for update on plan and if they need any additional documentation. Cosigning Linda Berger and Jonas Stratton to this note for postacute placement coordination. Alerting PCP team to this note for continuity of care. [facility] UM team has also been alerted to this continuing stay via BMS. /es/ VICENTE LAL REGISTERED NURSE Signed: 05/02/2024 13:33 Receipt Acknowledged By: 05/02/2024 14:21 /es/ MONICA HARLEY RN, BSN REGISTERED NURSE 05/05/2024 ADDENDUM STATUS: COMPLETED CONTINUED STAY REVIEW Contact Date: Apr Date of Admission: Apr Records relevant to this episode of care reviewed Patient is currently hospitalized. 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 FABIEN spoke with pt son , Wu, regarding discharge plan if pt goes tot IPR or SNF. 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 Wu states that pt , is also in hospital and SW currently trying to find hospice SNF for her and prefers that pt and pt ( Wu mother) be at same facility. 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 Wu agreeable with plan. CM informed Wu that will send mass referrals with 25 [place] [address] and will let him know. Wu verbalized understanding. CM to coordinate with SW regarding pt spouse discharge to make sure they go to same facility CM emailed elevate to screen pt form medicaid . Per elevate someone will f.u with pt tomorrow. Addendum- [facility] locations able to accept pt pending financial review and plan regarding assests. Addendum Mary Lou- [phone], liaison at [facility], able to accept pt and pt spouse( at [facility] looking for SNF for hospice). CM notified [facility] Stoll, to send referral. For pt spouse. CM left voicemail for pt son, Wu , to see if agreeable with facility awaiting call back. Alerting PCP team to this note for continuity of care /alexandra/ BHASKAR ABRAHAM, RN REGISTERED NURSE Signed: 05/05/2024 08:53 Receipt Acknowledged By: 05/05/2024 09:12 /alexandra/ MONICA HARLEY RN, BSN REGISTERED NURSE 05/08/2024 ADDENDUM STATUS: COMPLETED CONTINUED STAY REVIEW Contact Date: Apr Date of Admission: Apr Date of Procedure: Facility Name: [facility] Name: [facility] Dept: [facility] Contact Phone: [facility] of Contact Fax Number: Method of Contact: Inpatient level of care required: Surgical EXPERT FROM HOSPITAL NOTE BELOW Currently hospitalized. Per most recent progress note: Interval History: - Pending placement; no acute concerns - Medically stable for discharge Anticipated postacute care needs: Alerting PCP team to this note for continuity of care. /alexandra/ CHARLENE MURO RN REGISTERED NURSE Signed: 05/08/2024 08:17 Receipt Acknowledged By: 05/08/2024 08:46 /alexandra/ MONICA HARLEY RN, BSN REGISTERED NURSE 05/08/2024 10:36 /es/ Inez Douglas PA-C PA-C 05/09/2024 ADDENDUM STATUS: COMPLETED CONTINUED STAY REVIEW Contact Date: Apr Date of Admission: Apr Date of Procedure: Facility Name: [facility] Name: [facility] Dept: [facility] Phone: [facility] Contact Fax Number: Method of Contact: Inpatient level of care required: Medicine EXPERT FROM HOSPITAL NOTE BELOW Currently hospitalized. Per most recent progress note: Interval History: - no acute events. Pending placement. Of note, patient' last night. PER CM NOTE DATED 05/08- Cm called [facility] at [phone] asked for ann in admissions she was not avaliable left message for return call Anticipated postacute care needs: Alerting PCP team to this note for continuity of care. /shahab MURO RN REGISTERED NURSE Signed: 05/09/2024 08:25 Receipt Acknowledged By: 05/09/2024 11:18 /alexandra/ MONICA HARLEY RN, BSN REGISTERED NURSE 05/09/2024 09:35 /alexandra/ Inez Douglas PA-C PA-C 05/10/2024 ADDENDUM STATUS: COMPLETED CONTINUED STAY REVIEW Contact Date: Apr Date of Admission: Apr Date of Procedure: Facility Name: [facility] Name: [facility] Dept: [facility] Phone: [facility] of Contact Fax Number: Method of Contact: Inpatient level of care required: Medicine EXPERT FROM HOSPITAL NOTE BELOW Currently hospitalized. Per most recent progress note: 05/09 yesterday morning. Awaiting SNF bed for patient. Patient is medically stable for discharge, SW/CM updated. Discharge pending facility bed availability. Tolerating a diet and having BM's. Will follow up with Orthopedic surgery as outpatient. Pain well controlled. PER NOTE DATED 05/09- spoke to admission at [facility] at [phone] who stated they may have a bed tomorrow for him but with insurance auth best to start process now. Cm requested therapy to see patient , obtained facility NPI of [phone] and waiting to see which md at facility would accept and what their npi is Anticipated postacute care needs: Alerting PCP team to this note for continuity of care. /shahab MURO RN REGISTERED NURSE Signed: 05/10/2024 08:13 Receipt Acknowledged By: 05/10/2024 08:43 /alexandra/ MONICA HARLEY RN, BSN REGISTERED NURSE 05/15/2024 11:12 /shahab Douglas PA-C PA-C 05/15/2024 ADDENDUM STATUS: COMPLETED CONTINUED STAY REVIEW Contact Date: May Date of Admission: May Date of Procedure: Facility Name: [facility] Name: [facility] Dept: [facility] Contact Phone: Point of Contact Fax Number: Method of Contact: Inpatient level of care required: Medicine EXPERT FROM HOSPITAL NOTE BELOW Currently hospitalized. Per most recent progress note: NO NEW EVENTS TO REPORT Anticipated postacute care needs: /shahab MURO RN REGISTERED NURSE Signed: 05/15/2024 08:14 05/15/2024 ADDENDUM STATUS: COMPLETED CONTINUED STAY REVIEW Contact Date: May Date of Admission: Apr Date of Procedure: Facility Name: [facility] Name: [facility] Dept: [facility] Contact Phone: Point of Contact Fax Number: Method of Contact: Inpatient level of care required: Medicine EXPERT FROM HOSPITAL NOTE BELOW Currently hospitalized. Per most recent progress note: PER CM NOTE DATED 05/15/24- CM received call from Mary Lou Bearden, and Ann from [facility] to inform CM that have covid outbreak and that not in network with pt insurance and in order to do 1x contract would need denials of other facilities( pt has multiple accepting facilities ). Per Monisha, may be able to accept pt at [facility]. CM spoke with pt son, Wu, request CM to send him the list of the other accepting facilities . CM sent and informed Wu he will need to reach decision today to send auth. MD team updated . Anticipated postacute care needs: Alerting PCP team to this note for continuity of care. /shahab MURO RN REGISTERED NURSE Signed: 05/15/2024 14:43 Receipt Acknowledged By: 05/15/2024 15:03 /shahab HARLEY RN, BSN REGISTERED NURSE 05/16/2024 08:47 /shahab Douglas PA-C PA-C 05/15/2024 ADDENDUM STATUS: COMPLETED remains at [facility] awaiting transfer to SNF. /shahab HARLEY RN, BSN REGISTERED NURSE Signed: 05/15/2024 15:12 05/16/2024 ADDENDUM STATUS: COMPLETED CONTINUED STAY REVIEW Contact Date: May Date of Admission: Apr Date of Procedure: Facility Name: [facility] Name: [facility] Contact Dept: Point of Contact Phone: Point of Contact Fax Number: Method of Contact: Inpatient level of care required: Medicine EXPERT FROM HOSPITAL NOTE BELOW Currently hospitalized. Per most recent progress note: NO NEW EVENTS TO REPORT Anticipated postacute care needs: /shahab MURO RN REGISTERED NURSE Signed: 05/16/2024 08:02 CHARLENE BELLAMY [facility] May 15, 2024 02:03 PM ADDENDUM: LOCAL TITLE: Addendum STANDARD TITLE: ADDENDUM DATE OF NOTE: MAY 15, 2024@14:03:58 ENTRY DATE: MAY 15, 2024@14:03:58 AUTHOR: CHARLENE BELLAMY EXP COSIGNER: URGENCY: STATUS: COMPLETED CONTINUED STAY REVIEW Contact Date: May Date of Admission: Apr Date of Procedure: Facility Name: [facility] Name: [facility] Contact Dept: Point of Contact Phone: Point of Contact Fax Number: Method of Contact: Inpatient level of care required: Medicine EXPERT FROM HOSPITAL NOTE BELOW Currently hospitalized. Per most recent progress note: PER CM NOTE DATED 05/15/24- CM received call from Mary Lou Bearden, and Ann from [facility] to inform CM that have covid outbreak and that not in network with pt insurance and in order to do 1x contract would need denials of other facilities( pt has multiple accepting facilities ). Per Monisha, may be able to accept pt at [facility]. CM spoke with pt son, Wu, request CM to send him the list of the other accepting facilities . CM sent and informed Wu he will need to reach decision today to send auth. MD team updated . Anticipated postacute care needs: Alerting PCP team to this note for continuity of care. /shahab MURO RN REGISTERED NURSE Signed: 05/15/2024 14:43 Receipt Acknowledged By: 05/15/2024 15:03 /es/ MONICA HARLEY RN, BSN REGISTERED NURSE 05/16/2024 08:47 /es/ Inez Douglas PA-C PA-C --- Original Document --- 04/22/24 [facility] PRESENTING CARE COORD PLAN 657 STL: Emergency Notification Intake Date Presenting to the Facility: Apr Method of Contact: Notified from [facility] worklist Notification ID: [id number] [facility] Referral #: [id number] [facility] Name: Hospital: [facility] Address: City: [facility] State: [place] Chief complaint: Fell. C/O L ankle pain. Hit his head when he fell. Disposition Admitted Route of Admission: ER Date of Admission: Apr Admitting Diagnosis: Closed fx L fibula, closed nondisplaced fx C2. Alerting PCP team to this note for continuity of care. Records relevant to this episode of care may be found in [facility]. The patient is currently hospitalized as of 04/25/24. Per most recent progress note: Dx: L liss equivalent ankle fx. 04/24/24 ORIF L ankle fx/dl. WB Status: Non-weight bearing left lower extremity Immobilization: SLS Activity: Ambulate with assist Therapy: PT/OT for OOB/mobilization as tolerated (post op) Precautions: None Antibiotics: Periop: Ancef 1-2gm IV Q8hrs for 24 hours postoperative Wound Care: Maintain surgical dressing until follow-up Sutures/Gallagher: Will be removed 3 weeks after surgical date. Please include on discharge orders if patient is going to a facility. If the patient is still in the hospital at that time they will be removed by the orthopedic team. Dispo: Pending progress, postoperative recovery, and progress with therapy Follow-Up: Patient has follow up scheduled on 05/16/[address] Morris located at [address] with 6th and 11 th floor working together to get a safe DC to likely SNF. /alexandra/ Winston Rowe MSN, RN V15 [facility] Signed: 04/25/2024 17:38 Receipt Acknowledged By: 04/27/2024 08:15 /shahab Douglas PA-C PA-C 04/26/2024 08:50 /shahab HARLEY RN, BSN REGISTERED NURSE 04/26/2024 ADDENDUM STATUS: COMPLETED [place] remains hospitalized. See [facility] records for updates. /alexandra/ MONICA HARLEY RN, BSN REGISTERED NURSE Signed: 04/26/2024 08:50 04/27/2024 ADDENDUM STATUS: COMPLETED CONTINUED STAY REVIEW Contact Date: Apr Date of Admission: Apr Date of Procedure: Facility Name: Point of Contact Name: Point of Contact Dept: Point of Contact Phone: Point of Contact Fax Number: Method of Contact: Inpatient level of care required: Medicine EXPERT FROM HOSPITAL NOTE BELOW Currently hospitalized. Per most recent progress note: Interval History: HE reports his pain is controlled, he agrees he is ready for SNF as SW is working with the 11th floor SW for dual placement of him and his for a separate medical concern. No BM and bowel regimen increased. -04/26 Patient is medically stable for discharge, SW/CM updated. Discharge pending facility bed availability PER NOTE DATED 04/27- completed the referral forms for the pt to be considered for SNF by the [facility]. faxed info to Jd Stratton Anticipated postacute care needs: Alerting PCP team to this note for continuity of care. /alexandra/ CHARLENE MURO RN REGISTERED NURSE Signed: 04/27/2024 08:41 Receipt Acknowledged By: 04/27/2024 14:07 /shahab Douglas PA-C PA-C 04/27/2024 09:13 /alexandra/ MONICA HARLEY RN, BSN REGISTERED NURSE 05/02/2024 ADDENDUM STATUS: COMPLETED CONTINUED STAY REVIEW Contact Date: Apr Inpatient level of care required: Surgical Records relevant to this episode of care reviewed. Patient is currently hospitalized. Excerpt from most recent progress note: Trauma Surgical Assessment and Plan Goals of care, counseling/discussion Assessment & Plan 04/25 Spoke with Wu (son, poa) he is in [facility]ream[facility] for SNF. As his/pt's is likely going to Hospice today in [facility] on another floor. SW with 6th and 11 th floor working together to get a safe DC to likely SNF. 04/27 Continued placement plan between floors with him and (on a sperate unit.) 04/28 Pt co-habit in room with that is on hospice. Encounter for medication review Assessment & Plan Home medications reviewed and updated in admissions tab Discharge planning issues Assessment & Plan - 04/23: awaiting OR with Orthopedics, currently NPO, awaiting PT/OT -04/24: ORIF with ortho, remains NWB, PT/OT to see -04/26-05/01: Patient is medically stable for discharge, SW/CM updated. Discharge pending facility bed availability Anticipated postacute care needs: placement, ortho f/u The following is an excerpt from the most recent Care Management/UM note from EHR: From 04/29 note: Per Medical Chart/Rounds/IDR: Patient medically ready for d/c. ADD: 05/01 Discharge Barriers: [facility] referral pending for SNF Education Needs Identified (plan): VA referral for SNF at the [facility] sent yesterday, 04/28. CM called and spoke with Jd stratton today and confirmed that it was received. It has been sent to MD for review. No updates as of yet. From 05/01 note: CM called [place] [facility] about request sent to them last week at [phone] no answer left a VM asking for update on plan and if they need any additional documentation. Cosigning Linda Berger and Jonas Stratton to this note for postacute placement coordination. Alerting PCP team to this note for continuity of care. [facility] [facility] team has also been alerted to this continuing stay via BMS. /es/ VICENTE LAL REGISTERED NURSE Signed: 05/02/2024 13:33 Receipt Acknowledged By: 05/02/2024 14:21 /es/ MONICA HARLEY RN, BSN REGISTERED NURSE 05/05/2024 ADDENDUM STATUS: COMPLETED CONTINUED STAY REVIEW Contact Date: Apr Date of Admission: Apr Records relevant to this episode of care reviewed Patient is currently hospitalized. The following is an excerpt from the most recent Care Management/UM note from EHR: FABIEN spoke with Val[facility] at [place] regarding [facility] ,[facility] and pt does not have prison benefits so if [place] placement is needed [place] cannot accept and was under the impression that since pt is going to SNF , family likely will want them at same facility. FABIEN spoke with pt son , Wu, regarding discharge plan if pt goes tot IPR or SNF. Per Wu, he cannot provide 24 hr care and would like pt to go prison care at nursing facility after completing his therapy . Wu states that pt , is also in hospital and SW currently trying to find hospice SNF for her and prefers that pt and pt ( Wu mother) be at same facility. 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 Wu agreeable with plan. CM informed Wu that CM will send mass referrals with 25 mile radius of pt zipcode [facility] and will let him know. Wu verbalized understanding. CM to coordinate with SW regarding pt spouse discharge to make sure they go to same facility CM emailed elevate to screen pt form medicaid . Per elevate someone will f.u with pt tomorrow. Addendum- [facility] locations able to accept pt pending financial review and plan regarding assests. Addendum Mary Lou- [phone], liaison at [facility], able to accept pt and pt spouse( at [facility] looking for SNF for hospice). CM notified KIRK Stoll, to send referral. For pt spouse. CM left voicemail for pt son, Wu , to see if agreeable with facility awaiting call back. Alerting PCP team to this note for continuity of care /alexandra/ BHASKAR ABRAHAM, RN REGISTERED NURSE Signed: 05/05/2024 08:53 Receipt Acknowledged By: 05/05/2024 09:12 /alexandra/ MONICA HARLEY RN, BSN REGISTERED NURSE 05/08/2024 ADDENDUM STATUS: COMPLETED CONTINUED STAY REVIEW Contact Date: Apr Date of Admission: Apr Date of Procedure: Facility Name: [facility] Contact Name: Point of Contact Dept: Point of Contact Phone: Point of Contact Fax Number: Method of Contact: Inpatient level of care required: Surgical EXPERT FROM HOSPITAL NOTE BELOW Currently hospitalized. Per most recent progress note: Interval History: - Pending placement; no acute concerns - Medically stable for discharge Anticipated postacute care needs: Alerting PCP team to this note for continuity of care. /shahab MURO RN REGISTERED NURSE Signed: 05/08/2024 08:17 Receipt Acknowledged By: 05/08/2024 08:46 /shahba HARLEY RN, BSN REGISTERED NURSE 05/08/2024 10:36 /shahab Douglas PA-C PA-C 05/09/2024 ADDENDUM STATUS: COMPLETED CONTINUED STAY REVIEW Contact Date: Apr Date of Admission: Apr Date of Procedure: Facility Name: [facility] Contact Name: [facility] of Contact Dept: Point of Contact Phone: Point of Contact Fax Number: Method of Contact: Inpatient level of care required: Medicine EXPERT FROM HOSPITAL NOTE BELOW Currently hospitalized. Per most recent progress note: Interval History: - no acute events. Pending placement. Of note, patient' last night. PER CM NOTE DATED 05/08- called trino nichols at [phone] asked for ann in admissions she was not avaliable left message for return call Anticipated postacute care needs: Alerting PCP team to this note for continuity of care. /shahab MURO RN REGISTERED NURSE Signed: 05/09/2024 08:25 Receipt Acknowledged By: 05/09/2024 11:18 /shahab HARLEY RN, BSN REGISTERED NURSE 05/09/2024 09:35 /shahab Douglas PA-C PA-C 05/10/2024 ADDENDUM STATUS: COMPLETED CONTINUED STAY REVIEW Contact Date: Apr Date of Admission: Apr Date of Procedure: Facility Name: [facility] Contact Name: Point of Contact Dept: Point of Contact Phone: Point of Contact Fax Number: Method of Contact: Inpatient level of care required: Medicine EXPERT FROM HOSPITAL NOTE BELOW Currently hospitalized. Per most recent progress note: 05/09 yesterday morning. Awaiting SNF bed for patient. Patient is medically stable for discharge, SW/CM updated. Discharge pending facility bed availability. Tolerating a diet and having BM's. Will follow up with Orthopedic surgery as outpatient. Pain well controlled. PER CM NOTE DATED 05/09- CM spoke to admission at [facility] at [phone] who stated they may have a bed tomorrow for him but with insurance auth best to start process now. Cm requested therapy to see patient , obtained facility NPI of [id number] and waiting to see which md at facility would accept and what their npi is Anticipated postacute care needs: Alerting PCP team to this note for continuity of care. /shahab MURO RN REGISTERED NURSE Signed: 05/10/2024 08:13 Receipt Acknowledged By: 05/10/2024 08:43 /shahab HARLEY RN, BSN REGISTERED NURSE 05/15/2024 11:12 /alexandra/ Inez Douglas PA-C PA-C 05/15/2024 ADDENDUM STATUS: COMPLETED CONTINUED STAY REVIEW Contact Date: May Date of Admission: May Date of Procedure: Facility Name: [facility] Contact Name: [facility] of Contact Dept: Point of Contact Phone: Point of Contact Fax Number: Method of Contact: Inpatient level of care required: Medicine EXPERT FROM HOSPITAL NOTE BELOW Currently hospitalized. Per most recent progress note: NO NEW EVENTS TO REPORT Anticipated postacute care needs: /shahab MURO RN REGISTERED NURSE Signed: 05/15/2024 08:14 05/15/2024 ADDENDUM STATUS: COMPLETED [place] remains at [facility] awaiting transfer to SNF. /shahab HARLEY RN, BSN REGISTERED NURSE Signed: 05/15/2024 15:12 05/16/2024 ADDENDUM STATUS: COMPLETED CONTINUED STAY REVIEW Contact Date: May Date of Admission: Apr Date of Procedure: Facility Name: [facility] Contact Name: [facility] of Contact Dept: Point of Contact Phone: Point of Contact Fax Number: Method of Contact: Inpatient level of care required: Medicine EXPERT FROM HOSPITAL NOTE BELOW Currently hospitalized. Per most recent progress note: NO NEW EVENTS TO REPORT Anticipated postacute care needs: /shahab MURO RN REGISTERED NURSE Signed: 05/16/2024 08:02 CHARLENE BELLAMY [facility] May 10, 2024 08:05 AM ADDENDUM: LOCAL TITLE: Addendum STANDARD TITLE: ADDENDUM DATE OF NOTE: MAY 10, 2024@08:05:01 ENTRY DATE: MAY 10, 2024@08:05:02 AUTHOR: CHARLENE BELLAMY EXP COSIGNER: URGENCY: STATUS: COMPLETED CONTINUED STAY REVIEW Contact Date: Apr Date of Admission: Apr Date of Procedure: Facility Name: [facility] Contact Name: Point of Contact Dept: Point of Contact Phone: Point of Contact Fax Number: Method of Contact: Inpatient level of care required: Medicine EXPERT FROM HOSPITAL NOTE BELOW Currently hospitalized. Per most recent progress note: 05/09 yesterday morning. Awaiting SNF bed for patient. Patient is medically stable for discharge, SW/CM updated. Discharge pending facility bed availability. Tolerating a diet and having BM's. Will follow up with Orthopedic surgery as outpatient. Pain well controlled. PER CM NOTE DATED 05/09- CM spoke to admission at [facility] at [phone] who stated they may have a bed tomorrow for him but with insurance auth best to start process now. Cm requested therapy to see patient , obtained facility NPI of [id number] and waiting to see which md at facility would accept and what their npi is Anticipated postacute care needs: Alerting PCP team to this note for continuity of care. /shahab MURO RN REGISTERED NURSE Signed: 05/10/2024 08:13 Receipt Acknowledged By: 05/10/2024 08:43 /alexandra/ MONICA HARLEY RN, BSN REGISTERED NURSE 05/15/2024 11:12 /alexandra/ Inez Douglas PA-C PA-C --- Original Document --- 04/22/24 [facility] PRESENTING CARE COORD PLAN 657 STL: Emergency Notification Intake Date Presenting to the Facility: Apr Method of Contact: Notified from MD [employer] worklist Notification ID: [id number] [facility] Referral #: [id number] [facility] Name: Hospital: [facility] Address: City: [facility] State: [place] Chief complaint: Fell. C/O L ankle pain. Hit his head when he fell. Disposition Admitted Route of Admission: ER Date of Admission: Apr Admitting Diagnosis: Closed fx L fibula, closed nondisplaced fx C2. Alerting PCP team to this note for continuity of care. Records relevant to this episode of care may be found in [facility]. The patient is currently hospitalized as of 04/25/24. Per most recent progress note: Dx: L liss equivalent ankle fx. 04/24/24 ORIF L ankle fx/dl. WB Status: Non-weight bearing left lower extremity Immobilization: SLS Activity: Ambulate with assist Therapy: PT/OT for OOB/mobilization as tolerated (post op) Precautions: None Antibiotics: Periop: Ancef 1-2gm IV Q8hrs for 24 hours postoperative Wound Care: Maintain surgical dressing until follow-up Sutures/Aaron: Will be removed 3 weeks after surgical date. Please include on discharge orders if patient is going to a facility. If the patient is still in the hospital at that time they will be removed by the orthopedic team. Dispo: Pending progress, postoperative recovery, and progress with therapy Follow-Up: Patient has follow up scheduled on 05/16/[address] Morris located at [address] with 6th and 11 th floor working together to get a safe DC to likely SNF. /alexandra/ Winston Rowe MSN, RN V15 [facility] Resource [facility] Signed: 04/25/2024 17:38 Receipt Acknowledged By: 04/27/2024 08:15 /es/ Inez Douglas PA-C PA-C 04/26/2024 08:50 /es/ MONICA HARLEY RN, BSN REGISTERED NURSE 04/26/2024 ADDENDUM STATUS: COMPLETED remains hospitalized. See [facility] records for updates. /alexandra/ MONICA HARLEY RN, BSN REGISTERED NURSE Signed: 04/26/2024 08:50 04/27/2024 ADDENDUM STATUS: COMPLETED CONTINUED STAY REVIEW Contact Date: Apr Date of Admission: Apr Date of Procedure: Facility Name: Point [facility] Contact Name: Point of Contact Dept: Point of Contact Phone: Point of Contact Fax Number: Method of Contact: Inpatient level of care required: Medicine EXPERT FROM HOSPITAL NOTE BELOW Currently hospitalized. Per most recent progress note: Interval History: HE reports his pain is controlled, he agrees he is ready for SNF as SW is working with the 11th floor SW for dual placement of him and his for a separate medical concern. No BM and bowel regimen increased. -04/26 Patient is medically stable for discharge, SW/CM updated. Discharge pending facility bed availability PER NOTE DATED 04/27- completed the referral forms for the pt to be considered for SNF by the [facility]. faxed info to Jd Stratton Anticipated postacute care needs: Alerting PCP team to this note for continuity of care. /alexandra/ CHARLENE MURO RN REGISTERED NURSE Signed: 04/27/2024 08:41 Receipt Acknowledged By: 04/27/2024 14:07 /es/ Inez Douglas PA-C PA-C 04/27/2024 09:13 /es/ MONICA HARLEY RN, BSN REGISTERED NURSE 05/02/2024 ADDENDUM STATUS: COMPLETED CONTINUED STAY REVIEW Contact Date: Apr Inpatient level of care required: Surgical Records relevant to this episode of care reviewed. Patient is currently hospitalized. Excerpt from most recent progress note: Trauma Surgical Assessment and Plan Goals of care, counseling/discussion Assessment & Plan 04/25 Spoke with Wu (son, poa) he is in [facility] for SNF. As his/pt's is likely going to Hospice today in [facility] on another floor. SW with 6th and 11 th floor working together to get a safe DC to likely SNF. 04/27 Continued placement plan between floors with him and (on a sperate unit.) 04/28 Pt co-habit in room with that is on hospice. Encounter for medication review Assessment & Plan Home medications reviewed and updated in admissions tab Discharge planning issues Assessment & Plan - 04/23: awaiting OR with Orthopedics, currently NPO, awaiting PT/OT -04/24: ORIF with ortho, remains NWB, PT/OT to see -04/26-05/01: Patient is medically stable for discharge, SW/CM updated. Discharge pending facility bed availability Anticipated postacute care needs: placement, ortho f/u The following is an excerpt from the most recent Care Management/UM note from EHR: From 04/29 note: Per Medical Chart/Rounds/IDR: Patient medically ready for d/c. ADD: 05/01 Discharge Barriers: VA referral pending for SNF Education Needs Identified (plan): VA referral for SNF at the [facility] sent yesterday, 04/28. CM called and spoke with Jd stratton today and confirmed that it was received. It has been sent to MD for review. No updates as of yet. From 05/01 note: CM called [facility] about request sent to them last week at [phone] no answer left a VM asking for update on plan and if they need any additional documentation. Cosigning Linda Berger and Jonas Stratton to this note for postacute placement coordination. Alerting PCP team to this note for continuity of care. [facility] team has also been alerted to this continuing stay via BMS. /es/ VICENTE LAL REGISTERED NURSE Signed: 05/02/2024 13:33 Receipt Acknowledged By: 05/02/2024 14:21 /es/ MONICA HARLEY RN, BSN REGISTERED NURSE 05/05/2024 ADDENDUM STATUS: COMPLETED CONTINUED STAY REVIEW Contact Date: Apr Date of Admission: Apr Records relevant to this episode of care reviewed Patient is currently hospitalized. 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 FABIEN spoke with pt son , Wu, regarding discharge plan if pt goes tot IPR or SNF. Per Wu, he cannot provide 24 hr care and would like pt to go prison care at nursing facility after completing his therapy . Wu states that pt , is also in hospital and SW currently trying to find hospice SNF for her and prefers that pt and pt ( Wu mother) be at same facility. 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 Wu agreeable with plan. CM informed Wu that CM will send mass referrals with 25 mile radius of pt zipcode [facility] and will let him know. Wu verbalized understanding. CM to coordinate with SW regarding pt spouse discharge to make sure they go to same facility CM emailed elevate to screen pt form medicaid . Per elevate someone will f.u with pt tomorrow. Addendum- [facility] able to accept pt pending financial review and plan regarding assests. Addendum amber- [phone], liaison at [facility], able to accept pt and pt spouse( at [facility] looking for SNF for hospice). CM notified [facility] Stoll, to send referral. For pt spouse. CM left voicemail for pt son, Wu , to see if agreeable with facility awaiting call back. Alerting PCP team to this note for continuity of care /alexandra/ BHASKAR ABRAHAM, RN REGISTERED NURSE Signed: 05/05/2024 08:53 Receipt Acknowledged By: 05/05/2024 09:12 /alexandra/ MONICA HARLYE RN, BSN REGISTERED NURSE 05/08/2024 ADDENDUM STATUS: COMPLETED CONTINUED STAY REVIEW Contact Date: Apr Date of Admission: Apr Date of Procedure: Facility Name: Point of Contact Name: Point of Contact Dept: Point of Contact Phone: Point of Contact Fax Number: Method of Contact: Inpatient level of care required: Surgical EXPERT FROM HOSPITAL NOTE BELOW Currently hospitalized. Per most recent progress note: Interval History: - Pending placement; no acute concerns - Medically stable for discharge Anticipated postacute care needs: Alerting PCP team to this note for continuity of care. /alexandra/ CHARLENE SILVAN RN REGISTERED NURSE Signed: 05/08/2024 08:17 Receipt Acknowledged By: 05/08/2024 08:46 /shahab HARLEY RN, BSN REGISTERED NURSE 05/08/2024 10:36 /shahab Douglas PA-C PA-C 05/09/2024 ADDENDUM STATUS: COMPLETED CONTINUED STAY REVIEW Contact Date: Apr Date of Admission: Apr Date of Procedure: Facility Name: Point of Contact Name: Point of Contact Dept: Point of Contact Phone: Point of Contact Fax Number: Method of Contact: Inpatient level of care required: Medicine EXPERT FROM HOSPITAL NOTE BELOW Currently hospitalized. Per most recent progress note: Interval History: - no acute events. Pending placement. Of note, patient' last night. PER CM NOTE DATED 05/08- Cm called trino nichols at [phone] asked for ann in admissions she was not avaliable left message for return call Anticipated postacute care needs: Alerting PCP team to this note for continuity of care. /shahab MURO RN REGISTERED NURSE Signed: 05/09/2024 08:25 Receipt Acknowledged By: 05/09/2024 11:18 /shahab HARLEY RN, BSN REGISTERED NURSE 05/09/2024 09:35 /shahab Douglas PA-C PA-C 05/15/2024 ADDENDUM STATUS: COMPLETED CONTINUED STAY REVIEW Contact Date: May Date of Admission: May Date of Procedure: Facility Name: Point of Contact Name: Point of Contact Dept: Point of Contact Phone: Point of Contact Fax Number: Method of Contact: Inpatient level of care required: Medicine EXPERT FROM HOSPITAL NOTE BELOW Currently hospitalized. Per most recent progress note: NO NEW EVENTS TO REPORT Anticipated postacute care needs: /shahab MURO RN REGISTERED NURSE Signed: 05/15/2024 08:14 CHARLENE BELLAMY [facility] May 09, 2024 08:20 AM ADDENDUM: LOCAL TITLE: Addendum STANDARD TITLE: ADDENDUM DATE OF NOTE: MAY 09, 2024@08:20:25 ENTRY DATE: MAY 09, 2024@08:20:26 AUTHOR: CHARLENE BELLAMY EXP COSIGNER: URGENCY: STATUS: COMPLETED CONTINUED STAY REVIEW Contact Date: Apr Date of Admission: Apr Date of Procedure: Facility Name: Point of Contact Name: Point of Contact Dept: Point of Contact Phone: Point of Contact Fax Number: Method of Contact: Inpatient level of care required: Medicine EXPERT FROM HOSPITAL NOTE BELOW Currently hospitalized. Per most recent progress note: Interval History: - no acute events. Pending placement. Of note, patient' last night. PER CM NOTE DATED 05/08- Cm called trino [facility] at [phone] asked for ann in admissions she was not avaliable left message for return call Anticipated postacute care needs: Alerting PCP team to this note for continuity of care. /alexandra/ CHARLENE SILVAN RN REGISTERED NURSE Signed: 05/09/2024 08:25 Receipt Acknowledged By: 05/09/2024 11:18 /es/ MONICA HARLEY RN, BSN REGISTERED NURSE 05/09/2024 09:35 /es/ Inez Douglas PA-C PA-C --- Original Document --- 04/22/24 [facility] PRESENTING CARE COORD PLAN 657 STL: Emergency Notification Intake Date Presenting to the Facility: Apr Method of Contact: Notified from MD [employer] worklist Notification ID: [id number] [facility] Referral #: [id number] [facility] Name: Hospital: [facility] Address: City: [facility] State: [place] Chief complaint: Fell. C/O L ankle pain. Hit his head when he fell. Disposition Admitted Route of Admission: ER Date of Admission: Apr Admitting Diagnosis: Closed fx L fibula, closed nondisplaced fx C2. Alerting PCP team to this note for continuity of care. Records relevant to this episode of care may be found in [facility]. The patient is currently hospitalized as of 04/25/24. Per most recent progress note: Dx: L liss equivalent ankle fx. 04/24/24 ORIF L ankle fx/dl. WB Status: Non-weight bearing left lower extremity Immobilization: SLS Activity: Ambulate with assist Therapy: PT/OT for OOB/mobilization as tolerated (post op) Precautions: None Antibiotics: Periop: Ancef 1-2gm IV Q8hrs for 24 hours postoperative Wound Care: Maintain surgical dressing until follow-up Sutures/Gallagher: Will be removed 3 weeks after surgical date. Please include on discharge orders if patient is going to a facility. If the patient is still in the hospital at that time they will be removed by the orthopedic team. Dispo: Pending progress, postoperative recovery, and progress with therapy Follow-Up: Patient has follow up scheduled on 05/16/[address] Morris located at [facility]. with 6th and 11 th floor working together to get a safe DC to likely SNF. /alexandra/ Winston Rowe MSN, RN V[facility] Signed: 04/25/2024 17:38 Receipt Acknowledged By: 04/27/2024 08:15 /es/ Inez Douglas PA-C PA-C 04/26/2024 08:50 /alexandra/ MONICA HARLEY RN, BSN REGISTERED NURSE 04/26/2024 ADDENDUM STATUS: COMPLETED [place] remains hospitalized. See [facility] records for updates. /alexandra/ MONICA HARLEY RN, BSN REGISTERED NURSE Signed: 04/26/2024 08:50 04/27/2024 ADDENDUM STATUS: COMPLETED CONTINUED STAY REVIEW Contact Date: Apr Date of Admission: Apr Date of Procedure: Facility Name: Point of Contact Name: Point of Contact Dept: Point of Contact Phone: Point of Contact Fax Number: Method of Contact: Inpatient level of care required: Medicine EXPERT FROM HOSPITAL NOTE BELOW Currently hospitalized. Per most recent progress note: Interval History: HE reports his pain is controlled, he agrees he is ready for SNF as is working with the 11th floor SW for dual placement of him and his for a separate medical concern. No BM and bowel regimen increased. -04/26 Patient is medically stable for discharge, SW/CM updated. Discharge pending facility bed availability PER CM NOTE DATED 04/27- completed the referral forms for the pt to be considered for SNF by the [facility]. faxed info to Jd Stratton Anticipated postacute care needs: Alerting PCP team to this note for continuity of care. /es/ CHARLENE SILVAN RN REGISTERED NURSE Signed: 04/27/2024 08:41 Receipt Acknowledged By: 04/27/2024 14:07 /es/ Inez Douglas PA-C PA-C 04/27/2024 09:13 /es/ MONICA HARLEY RN, BSN REGISTERED NURSE 05/02/2024 ADDENDUM STATUS: COMPLETED CONTINUED STAY REVIEW Contact Date: Apr Inpatient level of care required: Surgical Records relevant to this episode of care reviewed. Patient is currently hospitalized. Excerpt from most recent progress note: Trauma Surgical Assessment and Plan Goals of care, counseling/discussion Assessment & Plan 04/25 Spoke with Wu (son, poa) he is in agreament for SNF. As his/pt's is likely going to Hospice today in [facility] on another floor. SW with 6th and 11 th floor working together to get a safe DC to likely SNF. 04/27 Continued placement plan between floors with him and (on a sperate unit.) 04/28 Pt co-habit in room with that is on hospice. Encounter for medication review Assessment & Plan Home medications reviewed and updated in admissions tab Discharge planning issues Assessment & Plan - 04/23: awaiting OR with Orthopedics, currently NPO, awaiting PT/OT -04/24: ORIF with ortho, remains NWB, PT/OT to see -04/26-05/01: Patient is medically stable for discharge, SW/CM updated. Discharge pending facility bed availability Anticipated postacute care needs: placement, ortho f/u The following is an excerpt from the most recent Care Management/UM note from EHR: From 04/29 note: Per Medical Chart/Rounds/IDR: Patient medically ready for d/c. ADD: 05/01 Discharge Barriers: [facility] referral [facility] for SNF Education Needs Identified (plan): [facility] referral for SNF at the [facility] sent yesterday, 04/28. CM called and spoke with Jd stratton today and confirmed that it was received. It has been sent to MD for review. No updates as of yet. From 05/01 note: CM called [place] [facility] about request sent to them last week at [phone] no answer left a VM asking for update on plan and if they need any additional documentation. Cosigning Linda Berger and Jonas Stratton to this note for postacute placement coordination. Alerting PCP team to this note for continuity of care. [facility] [facility] team has also been alerted to this continuing stay via BMS. /es/ VICENTE LAL REGISTERED NURSE Signed: 05/02/2024 13:33 Receipt Acknowledged By: 05/02/2024 14:21 /es/ MONICA HARLEY RN, BSN REGISTERED NURSE 05/05/2024 ADDENDUM STATUS: COMPLETED CONTINUED STAY REVIEW Contact Date: Apr Date of Admission: Apr Records relevant to this episode of care reviewed Patient is currently hospitalized. 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 FABIEN spoke with pt son , Wu, regarding discharge plan if pt goes tot IPR or SNF. 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 Wu states that pt , is also in hospital and currently trying to find hospice SNF for her and prefers that pt and pt ( Wu mother) be at same facility. CM informed Wu that per [place] unable to accept and pt does not have prison benefits , but can use [facility] medicare for SNF and see if pt qualifies for medicaid for long haul truck driver placement. Wu agreeable with plan. CM informed Wu that CM will send mass referrals with 25 mile radius of pt zipcode [facility] and will let him know. Wu verbalized understanding. CM to coordinate with regarding pt spouse discharge to make sure they go to same facility CM emailed elevate to screen pt form medicaid . Per myesha someone will f.u with pt tomorrow. Addendum- [facility] locations able to accept pt pending financial review and plan regarding assests. Addendum Mary Lou- [phone], liaison at [facility], able to accept pt and pt spouse( at [facility] looking for SNF for hospice). CM notified [facility], to send referral. For pt spouse. CM left voicemail for pt son, Wu , to see if agreeable with facility awaiting call back. Alerting PCP team to this note for continuity of care /alexandra/ BHASKAR ABRAHAM, RN REGISTERED NURSE Signed: 05/05/2024 08:53 Receipt Acknowledged By: 05/05/2024 09:12 /alexandra/ MONICA HARLEY RN, BSN REGISTERED NURSE 05/08/2024 ADDENDUM STATUS: COMPLETED CONTINUED STAY REVIEW Contact Date: Apr Date of Admission: Apr Date of Procedure: Facility Name: Point of Contact Name: Point of Contact Dept: Point of Contact Phone: Point of Contact Fax Number: Method of Contact: Inpatient level of care required: Surgical EXPERT FROM HOSPITAL NOTE BELOW Currently hospitalized. Per most recent progress note: Interval History: - Pending placement; no acute concerns - Medically stable for discharge Anticipated postacute care needs: Alerting PCP team to this note for continuity of care. /alexandra/ CHARLENE MURO RN REGISTERED NURSE Signed: 05/08/2024 08:17 Receipt Acknowledged By: 05/08/2024 08:46 /alexandra/ MONICA HARLEY RN, BSN REGISTERED NURSE 05/08/2024 10:36 /alexandra/ NIYA Goldman PA-C, SH[facility]KA N [facility] May 08, 2024 08:09 AM ADDENDUM: LOCAL TITLE: Addendum STANDARD TITLE: ADDENDUM DATE OF NOTE: MAY 08, 2024@08:09:22 ENTRY DATE: MAY 08, 2024@08:09:23 AUTHOR: CHARLENE BELLAMY EXP COSIGNER: URGENCY: STATUS: COMPLETED CONTINUED STAY REVIEW Contact Date: Apr Date of Admission: Apr Date of Procedure: Facility Name: Point of Contact Name: Point of Contact Dept: Point of Contact Phone: Point of Contact Fax Number: Method of Contact: Inpatient level of care required: Surgical EXPERT FROM HOSPITAL NOTE BELOW Currently hospitalized. Per most recent progress note: Interval History: - Pending placement; no acute concerns - Medically stable for discharge Anticipated postacute care needs: Alerting PCP team to this note for continuity of care. /alexandra/ CHARLENE SILVAN RN REGISTERED NURSE Signed: 05/08/2024 08:17 Receipt Acknowledged By: 05/08/2024 08:46 /es/ MONICA HARLEY RN, BSN REGISTERED NURSE 05/08/2024 10:36 /es/ Inez Douglas PA-C PA-C --- Original Document --- 04/22/24 [facility] PRESENTING CARE COORD PLAN 657 STL: Emergency Notification Intake Date Presenting to the Facility: Apr Method of Contact: Notified from MD [employer] worklist Notification ID: [id number] [facility] Referral #: [id number] [facility] Name: Hospital: [facility] Address: City: [facility] State: [place] Chief complaint: Fell. C/O L ankle pain. Hit his head when he fell. Disposition Admitted Route of Admission: ER Date of Admission: Apr Admitting Diagnosis: Closed fx L fibula, closed nondisplaced fx C2. Alerting PCP team to this note for continuity of care. Records relevant to this episode of care may be found in [employer]. The patient is currently hospitalized as of 04/25/24. Per most recent progress note: Dx: L liss equivalent ankle fx. 04/24/24 ORIF L ankle fx/dl. WB Status: Non-weight bearing left lower extremity Immobilization: SLS Activity: Ambulate with assist Therapy: PT/OT for OOB/mobilization as tolerated (post op) Precautions: None Antibiotics: Periop: Ancef 1-2gm IV Q8hrs for 24 hours postoperative Wound Care: Maintain surgical dressing until follow-up Sutures/Aaron: Will be removed 3 weeks after surgical date. Please include on discharge orders if patient is going to a facility. If the patient is still in the hospital at that time they will be removed by the orthopedic team. Dispo: Pending progress, postoperative recovery, and progress with therapy Follow-Up: Patient has follow up scheduled on 05/16/[address] Morris located at [facility]. with 6th and 11 th floor working together to get a safe DC to likely SNF. /alexandra/ Winston Rowe MSN, RN V15 [facility] Signed: 04/25/2024 17:38 Receipt Acknowledged By: 04/27/2024 08:15 /alexandra/ Inez Douglas PA-C PA-C 04/26/2024 08:50 /alexandra/ MONICA HARLEY RN, BSN REGISTERED NURSE 04/26/2024 ADDENDUM STATUS: COMPLETED [place] remains hospitalized. See [facility] records for updates. /alexandra/ MONICA HARLEY RN, BSN REGISTERED NURSE Signed: 04/26/2024 08:50 04/27/2024 ADDENDUM STATUS: COMPLETED CONTINUED STAY REVIEW Contact Date: Apr Date of Admission: Apr Date of Procedure: Facility Name: Point of Contact Name: Point of Contact Dept: Point of Contact Phone: Point of Contact Fax Number: Method of Contact: Inpatient level of care required: Medicine EXPERT FROM HOSPITAL NOTE BELOW Currently hospitalized. Per most recent progress note: Interval History: HE reports his pain is controlled, he agrees he is ready for SNF as is working with the 11th floor for dual placement of him and his for a separate medical concern. No BM and bowel regimen increased. -04/26 Patient is medically stable for discharge, SW/FABIEN updated. Discharge pending facility bed availability PER NOTE DATED 04/27- FABIEN completed the referral forms for the pt to be considered for SNF by the [facility]. faxed info to Jd Stratton Anticipated postacute care needs: Alerting PCP team to this note for continuity of care. /alexandra/ CHARLENE SILVAN RN REGISTERED NURSE Signed: 04/27/2024 08:41 Receipt Acknowledged By: 04/27/2024 14:07 /es/ Inez Douglas PA-C PA-C 04/27/2024 09:13 /es/ MONICA HARLEY RN, BSN REGISTERED NURSE 05/02/2024 ADDENDUM STATUS: COMPLETED CONTINUED STAY REVIEW Contact Date: Apr Inpatient level of care required: Surgical Records relevant to this episode of care reviewed. Patient is currently hospitalized. Excerpt from most recent progress note: Trauma Surgical Assessment and Plan Goals of care, counseling/discussion Assessment & Plan 04/25 Spoke with Wu (son, poa) he is in agreament for SNF. As his/pt's is likely going to Hospice today in [facility] on another floor. SW with 6th and 11 th floor working together to get a safe DC to likely SNF. 04/27 Continued placement plan between floors with him and (on a sperate unit.) 04/28 Pt co-habit in room with that is on hospice. Encounter for medication review Assessment & Plan Home medications reviewed and updated in admissions tab Discharge planning issues Assessment & Plan - 04/23: awaiting OR with Orthopedics, currently NPO, awaiting PT/OT -04/24: ORIF with ortho, remains NWB, PT/OT to see -04/26-05/01: Patient is medically stable for discharge, SW/CM updated. Discharge pending facility bed availability Anticipated postacute care needs: placement, ortho f/u The following is an excerpt from the most recent Care Management/UM note from EHR: From 04/29 note: Per Medical Chart/Rounds/IDR: Patient medically ready for d/c. ADD: 05/01 Discharge Barriers: VA referral pending for SNF Education Needs Identified (plan): VA referral for SNF at the [facility] sent yesterday, 04/28. CM called and spoke with Jd stratton today and confirmed that it was received. It has been sent to MD for review. No updates as of yet. From 05/01 note: [facility] last week at [phone] no answer left a VM asking for update on plan and if they need any additional documentation. Cosigning Linda Berger and Jonas Stratton to this note for postacute placement coordination. Alerting PCP team to this note for continuity of care. [facility] UM team has also been alerted to this continuing stay via BMS. /es/ VICENTE LAL REGISTERED NURSE Signed: 05/02/2024 13:33 Receipt Acknowledged By: 05/02/2024 14:21 /es/ MONICA HARLEY RN, BSN REGISTERED NURSE 05/05/2024 ADDENDUM STATUS: COMPLETED CONTINUED STAY REVIEW Contact Date: Apr Date of Admission: Apr Records relevant to this episode of care reviewed Patient is currently hospitalized. The following is an excerpt from the most recent Care Management/UM note from EHR: [place] ,[place] still [place] and pt does not have prison benefits so if [place] is needed [place] and was under the impression that since pt is going to SNF , family likely will want them at same facility. FABIEN spoke with pt son , Wu, regarding discharge plan if pt goes tot IPR or SNF. Per Wu, he cannot provide 24 hr care and would like pt to go prison care at nursing facility after completing his therapy . Wu states that pt , is also in hospital and SW currently trying to find hospice SNF for her and prefers that pt and pt ( Wu mother) be at same facility. CM informed Wu that per [place] unable to accept and pt does not have prison benefits , but can use [facility] medicare for SNF and see if pt qualifies for medicaid for prison placement. Wu agreeable with plan. CM informed Wu that CM will send mass referrals with 25 mile radius of pt zipcode [facility] and will let him know. Wu verbalized understanding. CM to coordinate with SW regarding pt spouse discharge to make sure they go to same facility CM emailed elevate to screen pt form medicaid . Per elevate someone will f.u with pt tomorrow. Addendum- [facility] locations able to accept pt pending financial review and plan regarding assests. Addendum Mary Lou- [phone], liaison at [facility], able to accept pt and pt spouse( at [facility] looking for SNF for hospice). FABIEN notified [facility], to send referral. For pt spouse. FABIEN left voicemail for pt son, Wu , to see if agreeable with facility awaiting call back. Alerting PCP team to this note for continuity of care /alexandra/ BHASKAR ABRAHAM, RN REGISTERED NURSE Signed: 05/05/2024 08:53 Receipt Acknowledged By: 05/05/2024 09:12 /alexandra/ MONICA HARLEY RN, BSN REGISTERED NURSE CHARLENE BELLAMY [facility] May 05, 2024 08:46 AM ADDENDUM: LOCAL TITLE: Addendum STANDARD TITLE: ADDENDUM DATE OF NOTE: MAY 05, 2024@08:46:52 ENTRY DATE: MAY 05, 2024@08:46:53 AUTHOR: VALENTIN LIN EXP COSIGNER: URGENCY: STATUS: COMPLETED CONTINUED STAY REVIEW Contact Date: Apr Date of Admission: Apr Records relevant to this episode of care reviewed Patient is currently hospitalized. 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 FABIEN spoke with pt son , Wu, regarding discharge plan if pt goes tot IPR or SNF. Per Wu, he cannot provide 24 hr care and would like pt to go prison care at nursing facility after completing his therapy . Wu states that pt , is also in hospital and SW currently trying to find hospice SNF for her and prefers that pt and pt ( Wu mother) be at same facility. 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 Wu agreeable with plan. CM informed Wu that CM will send mass referrals with 25 mile radius of pt zipcode [facility] and will let him know. Wu verbalized understanding. CM to coordinate with SW regarding pt spouse discharge to make sure they go to same facility CM emailed elevate to screen pt form medicaid . Per elevate someone will f.u with pt tomorrow. Addendum- [facility] locations able to accept pt pending financial review and plan regarding assests. Addendum amber- [phone], liaison at [facility], able to accept pt and pt spouse( at [facility] looking for SNF for hospice). CM notified [facility], to send referral. For pt spouse. CM left voicemail for pt son, Wu , to see if agreeable with facility awaiting call back. Alerting PCP team to this note for continuity of care /es/ BHASKAR ABRAHAM, RN REGISTERED NURSE Signed: 05/05/2024 08:53 Receipt Acknowledged By: 05/05/2024 09:12 /es/ MONICA HARLEY RN, BSN REGISTERED NURSE --- Original Document --- 04/22/24 [facility] PRESENTING CARE COORD PLAN 657 STL: Emergency Notification Intake Date Presenting to the Facility: Apr Method of Contact: Notified from MD [employer] worklist Notification ID: [id number] [facility] Referral #: [id number] clinical review [facility] Name: Hospital: [facility] Address: City: [facility] State: [place] Chief complaint: Fell. C/O L ankle pain. Hit his head when he fell. Disposition Admitted Route of Admission: ER Date of Admission: Apr Admitting Diagnosis: Closed fx L fibula, closed nondisplaced fx C2. Alerting PCP team to this note for continuity of care. Records relevant to this episode of care may be found in [employer]. The patient is currently hospitalized as of 04/25/24. Per most recent progress note: Dx: L liss equivalent ankle fx. 04/24/24 ORIF L ankle fx/dl. WB Status: Non-weight bearing left lower extremity Immobilization: SLS Activity: Ambulate with assist Therapy: PT/OT for OOB/mobilization as tolerated (post op) Precautions: None Antibiotics: Periop: Ancef 1-2gm IV Q8hrs for 24 hours postoperative Wound Care: Maintain surgical dressing until follow-up Sutures/Aaron: Will be removed 3 weeks after surgical date. Please include on discharge orders if patient is going to a facility. If the patient is still in the hospital at that time they will be removed by the orthopedic team. Dispo: Pending progress, postoperative recovery, and progress with therapy Follow-Up: Patient has follow up scheduled on 05/16/[address] Morris located at [facility]. with 6th and 11 th floor working together to get a safe DC to likely SNF. /alexandra/ Winston Rowe MSN, RN V[facility] Signed: 04/25/2024 17:38 Receipt Acknowledged By: 04/27/2024 08:15 /shahab Douglas PA-C PA-C 04/26/2024 08:50 /alexandra/ MONICA HARLEY RN, BSN REGISTERED NURSE 04/26/2024 ADDENDUM STATUS: COMPLETED remains hospitalized. See [facility] records for updates. /shahab HARLEY RN, BSN REGISTERED NURSE Signed: 04/26/2024 08:50 04/27/2024 ADDENDUM STATUS: COMPLETED CONTINUED STAY REVIEW Contact Date: Apr Date of Admission: Apr Date of Procedure: Facility Name: Point of Contact Name: Point of Contact Dept: Point of Contact Phone: Point of Contact Fax Number: Method of Contact: Inpatient level of care required: Medicine EXPERT FROM HOSPITAL NOTE BELOW Currently hospitalized. Per most recent progress note: Interval History: HE reports his pain is controlled, he agrees he is ready for SNF as is working with the 11th floor for dual placement of him and his for a separate medical concern. No BM and bowel regimen increased. -04/26 Patient is medically stable for discharge, / updated. Discharge pending facility bed availability PER NOTE DATED 04/27- completed the referral forms for the pt to be considered for SNF by the [facility]. faxed info to Jd Stratton Anticipated postacute care needs: Alerting PCP team to this note for continuity of care. /alexandra/ CHARLENE SILVAN RN REGISTERED NURSE Signed: 04/27/2024 08:41 Receipt Acknowledged By: 04/27/2024 14:07 /shahab Douglas PA-C PA-C 04/27/2024 09:13 /alexandra/ MONICA HARLEY RN, BSN REGISTERED NURSE 05/02/2024 ADDENDUM STATUS: COMPLETED CONTINUED STAY REVIEW Contact Date: Apr Inpatient level of care required: Surgical Records relevant to this episode of care reviewed. Patient is currently hospitalized. Excerpt from most recent progress note: Trauma Surgical Assessment and Plan Goals of care, counseling/discussion Assessment & Plan 04/25 Spoke with Wu (son, poa) he is in agreament for SNF. As his/pt's is likely going to Hospice today in [facility] on another floor. SW with 6th and 11 th floor working together to get a safe DC to likely SNF. 04/27 Continued placement plan between floors with him and (on a sperate unit.) 04/28 Pt co-habit in room with that is on hospice. Encounter for medication review Assessment & Plan Home medications reviewed and updated in admissions tab Discharge planning issues Assessment & Plan - 04/23: awaiting OR with Orthopedics, currently NPO, awaiting PT/OT -04/24: ORIF with ortho, remains NWB, PT/OT to see -04/26-05/01: Patient is medically stable for discharge, SW/CM updated. Discharge pending facility bed availability Anticipated postacute care needs: placement, ortho f/u The following is an excerpt from the most recent Care Management/UM note from EHR: From 04/29 note: Per Medical Chart/Rounds/IDR: Patient medically ready for d/c. ADD: 05/01 Discharge Barriers: VA referral pending for SNF Education Needs Identified (plan): VA referral for SNF at the [facility] sent yesterday, 04/28. CM called and spoke with Jd stratton today and confirmed that it was received. It has been sent to MD for review. No updates as of yet. From 05/01 note: CM called [place] [facility] about request sent to them last week at [phone] no answer left a VM asking for update on plan and if they need any additional documentation. Cosigning Linda Berger and Jonas Stratton to this note for postacute placement coordination. Alerting PCP team to this note for continuity of care. [facility] [facility] team has also been alerted to this continuing stay via BMS. /alexandra/ VICENTE LAL REGISTERED NURSE Signed: 05/02/2024 13:33 Receipt Acknowledged By: 05/02/2024 14:21 /alexandra/ MONICA HARLEY RN, BSN REGISTERED NURSE VALENTIN LIN [facility] May 02, 2024 01:29 PM ADDENDUM: LOCAL TITLE: Addendum STANDARD TITLE: ADDENDUM DATE OF NOTE: MAY 02, 2024@13:29:53 ENTRY DATE: MAY 02, 2024@13:29:54 AUTHOR: VICENTE LAL COSIGNER: URGENCY: STATUS: COMPLETED CONTINUED STAY REVIEW Contact Date: Apr Inpatient level of care required: Surgical Records relevant to this episode of care reviewed. Patient is currently hospitalized. Excerpt from most recent progress note: Trauma Surgical Assessment and Plan Goals of care, counseling/discussion Assessment & Plan 04/25 Spoke with Wu (son, poa) he is in agreament for SNF. As his/pt's is likely going to Hospice today in [facility] on another floor. SW with 6th and 11 th floor working together to get a safe DC to likely SNF. 04/27 Continued placement plan between floors with him and (on a sperate unit.) 04/28 Pt co-habit in room with that is on hospice. Encounter for medication review Assessment & Plan Home medications reviewed and updated in admissions tab Discharge planning issues Assessment & Plan - 04/23: awaiting OR with Orthopedics, currently NPO, awaiting PT/OT -04/24: ORIF with ortho, remains NWB, PT/OT to see -04/26-05/01: Patient is medically stable for discharge, SW/CM updated. Discharge pending facility bed availability Anticipated postacute care needs: placement, ortho f/u The following is an excerpt from the most recent Care Management/UM note from EHR: From 04/29 note: Per Medical Chart/Rounds/IDR: Patient medically ready for d/c. ADD: 05/01 Discharge Barriers: [facility] referral pending for SNF Education Needs Identified (plan): [facility] referral for SNF at [facility] sent yesterday, 04/28. CM called and spoke with Jd stratton today and confirmed that it was received. It has been sent to MD for review. No updates as of yet. From 05/01 note: [facility] about [facility] sent to them last week at [phone] no answer left a VM asking for update on plan and if they need any additional documentation. Cosigning Linda Berger and Jonas Stratton to this note for postacute placement coordination. Alerting PCP team to this note for continuity of care. [facility] UM team has also been alerted to this continuing stay via BMS. /es/ VICENTE LAL REGISTERED NURSE Signed: 05/02/2024 13:33 Receipt Acknowledged By: * AWAITING SIGNATURE * ERIN BERGER 05/02/2024 14:21 /es/ MONICA HARLEY RN, BSN REGISTERED NURSE * AWAITING SIGNATURE * ERIN STRATTON * AWAITING SIGNATURE * INEZ DOUGLAS --- Original Document --- 04/22/24 [facility] PRESENTING CARE COORD PLAN 657 STL: Emergency Notification Intake Date Presenting to the Facility: Apr Method of Contact: Notified from MD [employer] worklist Notification ID: [id number] [facility] Referral #: [id number] [facility] Name: Hospital: [facility] Address: City: [facility] State: [place] Chief complaint: Fell. C/O L ankle pain. Hit his head when he fell. Disposition Admitted Route of Admission: ER Date of Admission: Apr Admitting Diagnosis: Closed fx L fibula, closed nondisplaced fx C2. Alerting PCP team to this note for continuity of care. Records relevant to this episode of care may be found in [employer]. The patient is currently hospitalized as of 04/25/24. Per most recent progress note: Dx: L liss equivalent ankle fx. 04/24/24 ORIF L ankle fx/dl. WB Status: Non-weight bearing left lower extremity Immobilization: SLS Activity: Ambulate with assist Therapy: PT/OT for OOB/mobilization as tolerated (post op) Precautions: None Antibiotics: Periop: Ancef 1-2gm IV Q8hrs for 24 hours postoperative Wound Care: Maintain surgical dressing until follow-up Sutures/Aaron: Will be removed 3 weeks after surgical date. Please include on discharge orders if patient is going to a facility. If the patient is still in the hospital at that time they will be removed by the orthopedic team. Dispo: Pending progress, postoperative recovery, and progress with therapy Follow-Up: Patient has follow up scheduled on 05/16/[address] Morris located at [facility]. with 6th and 11 th floor working together to get a safe DC to likely SNF. /es/ Winston Rowe MSN, RN V15 [facility] Resource [facility] Signed: 04/25/2024 17:38 Receipt Acknowledged By: 04/27/2024 08:15 /es/ Inez Douglas PA-C PA-C 04/26/2024 08:50 /alexandra/ MONICA HARLEY RN, BSN REGISTERED NURSE 04/26/2024 ADDENDUM STATUS: COMPLETED [place] remains hospitalized. See [facility] records for updates. /alexandra/ MONICA HARLEY RN, BSN REGISTERED NURSE Signed: 04/26/2024 08:50 04/27/2024 ADDENDUM STATUS: COMPLETED CONTINUED STAY REVIEW Contact Date: Apr Date of Admission: Apr Date of Procedure: Facility Name: [facility] Name: [facility] Dept: [facility] Phone: [facility] Fax Number: Method of Contact: Inpatient level of care required: Medicine EXPERT FROM HOSPITAL NOTE BELOW Currently hospitalized. Per most recent progress note: Interval History: HE reports his pain is controlled, he agrees he is ready for SNF as is working with the 11th floor for dual placement of him and his for a separate medical concern. No BM and bowel regimen increased. -04/26 Patient is medically stable for discharge, SW/CM updated. Discharge pending facility bed availability PER NOTE DATED 04/27- completed the referral forms for the pt to be considered for SNF by the [facility]. faxed info to Jd Stratton Anticipated postacute care needs: Alerting PCP team to this note for continuity of care. /alexandra/ CHARLENE SILVAN RN REGISTERED NURSE Signed: 04/27/2024 08:41 Receipt Acknowledged By: 04/27/2024 14:07 /shahab Douglas PA-C PA-C 04/27/2024 09:13 /alexandra/ MONICA HARLEY RN, BSN REGISTERED NURSE VICENTE LAL [facility] Apr 27, 2024 08:34 AM ADDENDUM: LOCAL TITLE: Addendum STANDARD TITLE: ADDENDUM DATE OF NOTE: APR 27, 2024@08:34:02 ENTRY DATE: APR 27, 2024@08:34:03 AUTHOR: CHARLENE BELLAMY EXP COSIGNER: URGENCY: STATUS: COMPLETED CONTINUED STAY REVIEW Contact Date: Apr Date of Admission: Apr Date of Procedure: Facility Name: [facility] Name: [facility] Dept: [facility] Phone: [facility] Fax Number: Method of Contact: Inpatient level of care required: Medicine EXPERT FROM HOSPITAL NOTE BELOW Currently hospitalized. Per most recent progress note: Interval History: HE reports his pain is controlled, he agrees he is ready for SNF as SW is working with the 11th floor SW for dual placement of him and his for a separate medical concern. No BM and bowel regimen increased. -04/26 Patient is medically stable for discharge, SW/CM updated. Discharge pending facility bed availability PER NOTE DATED 04/27- completed the referral forms for the pt to be considered for SNF by the [facility]. faxed info to Jd Stratton Anticipated postacute care needs: Alerting PCP team to this note for continuity of care. /alexandra/ CHARLENE MURO RN REGISTERED NURSE Signed: 04/27/2024 08:41 Receipt Acknowledged By: 04/27/2024 14:07 /alexandra/ Inez Douglas PA-C PA-C 04/27/2024 09:13 /alexandra/ MONICA HARLEY RN, BSN REGISTERED NURSE --- Original Document --- 04/22/24 [facility] PRESENTING CARE COORD PLAN 657 STL: Emergency Notification Intake Date Presenting to the Facility: Apr Method of Contact: Notified from MD [employer] worklist Notification ID: [id number] [facility] Referral #: [id number] [facility] Name: Hospital: [facility] Address: City: [facility] State: [place] Chief complaint: Fell. C/O L ankle pain. Hit his head when he fell. Disposition Admitted Route of Admission: ER Date of Admission: Apr Admitting Diagnosis: Closed fx L fibula, closed nondisplaced fx C2. Alerting PCP team to this note for continuity of care. Records relevant to this episode of care may be found in [facility]. The patient is currently hospitalized as of 04/25/24. Per most recent progress note: Dx: L liss equivalent ankle fx. 04/24/24 ORIF L ankle fx/dl. WB Status: Non-weight bearing left lower extremity Immobilization: SLS Activity: Ambulate with assist Therapy: PT/OT for OOB/mobilization as tolerated (post op) Precautions: None Antibiotics: Periop: Ancef 1-2gm IV Q8hrs for 24 hours postoperative Wound Care: Maintain surgical dressing until follow-up Sutures/Aaron: Will be removed 3 weeks after surgical date. Please include on discharge orders if patient is going to a facility. If the patient is still in the hospital at that time they will be removed by the orthopedic team. Dispo: Pending progress, postoperative recovery, and progress with therapy Follow-Up: Patient has follow up scheduled on 05/16/[address] Morris located at [address] with 6th and 11 th floor working together to get a safe DC to likely SNF. /alexandra/ Winston Rowe MSN, RN V15 [facility] Resource [facility] Signed: 04/25/2024 17:38 Receipt Acknowledged By: 04/27/2024 08:15 /alexandra/ Inez Douglas PA-C PA-C 04/26/2024 08:50 /alexandra/ MONIAC HARLEY RN, BSN REGISTERED NURSE 04/26/2024 ADDENDUM STATUS: COMPLETED remains hospitalized. See [facility] records for updates. /alexandra/ MONICA HARLEY RN, BSN REGISTERED NURSE Signed: 04/26/2024 08:50 CHARLENE BELLAMY [facility] Apr 22, 2024 05:29 PM NONVA NOTE: LOCAL TITLE: [facility] PRESENTING CARE COORD PLAN STANDARD TITLE: NONVA NOTE DATE OF NOTE: APR 22, 2024@17:29 ENTRY DATE: APR 25, 2024@17:29:39 AUTHOR: WINSTON ROWE EXP COSIGNER: URGENCY: STATUS: COMPLETED [facility] PRESENTING CARE COORD PLAN 657 [address] Has ADDENDA Emergency Notification Intake Date Presenting to the Facility: Apr Method of Contact: Notified from MD [employer] worklist Notification ID: [id number] [facility] Referral #: [id number] [facility] Name: Hospital: [facility] Address: City: [facility] State: [place] Chief complaint: Fell. C/O L ankle pain. Hit his head when he fell. Disposition Admitted Route of Admission: ER Date of Admission: Apr Admitting Diagnosis: Closed fx L fibula, closed nondisplaced fx C2. Alerting PCP team to this note for continuity of care. Records relevant to this episode of care may be found in [facility]. The patient is currently hospitalized as of 04/25/24. Per most recent progress note: Dx: L liss equivalent ankle fx. 04/24/24 ORIF L ankle fx/dl. WB Status: Non-weight bearing left lower extremity Immobilization: SLS Activity: Ambulate with assist Therapy: PT/OT for OOB/mobilization as tolerated (post op) Precautions: None Antibiotics: Periop: Ancef 1-2gm IV Q8hrs for 24 hours postoperative Wound Care: Maintain surgical dressing until follow-up Sutures/Gallagher: Will be removed 3 weeks after surgical date. Please include on discharge orders if patient is going to a facility. If the patient is still in the hospital at that time they will be removed by the orthopedic team. Dispo: Pending progress, postoperative recovery, and progress with therapy Follow-Up: Patient has follow up scheduled on 05/16/[address] Morris located at [address] with 6th and 11 th floor working together to get a safe DC to likely SNF. /alexandra/ Winston Rowe MSN, RN V15 [facility] Signed: 04/25/2024 17:38 Receipt Acknowledged By: 04/27/2024 08:15 /shahab Douglas PA-C PA-C 04/26/2024 08:50 /alexandra/ MONICA HARLEY RN, BSN REGISTERED NURSE 04/26/2024 ADDENDUM STATUS: COMPLETED remains hospitalized. See [facility] records for updates. /shahab HARLEY RN, BSN REGISTERED NURSE Signed: 04/26/2024 08:50 04/27/2024 ADDENDUM STATUS: COMPLETED CONTINUED STAY REVIEW Contact Date: Apr Date of Admission: Apr Date of Procedure: Facility Name: [facility] Name: [facility] Dept: [facility] Phone: [facility] of Contact Fax Number: Method of Contact: Inpatient level of care required: Medicine EXPERT FROM HOSPITAL NOTE BELOW Currently hospitalized. Per most recent progress note: Interval History: HE reports his pain is controlled, he agrees he is ready for SNF as SW is working with the 11th floor SW for dual placement of him and his for a separate medical concern. No BM and bowel regimen increased. -04/26 Patient is medically stable for discharge, SW/CM updated. Discharge pending facility bed availability PER NOTE DATED 04/27- completed the referral forms for the pt to be considered for SNF by the [facility]. faxed info to Jd Stratton Anticipated postacute care needs: Alerting PCP team to this note for continuity of care. /shahab MURO RN REGISTERED NURSE Signed: 04/27/2024 08:41 Receipt Acknowledged By: 04/27/2024 14:07 /shahab Douglas PA-C PA-C 04/27/2024 09:13 /shahab HARLEY RN, BSN REGISTERED NURSE 05/02/2024 ADDENDUM STATUS: COMPLETED CONTINUED STAY REVIEW Contact Date: Apr Inpatient level of care required: Surgical Records relevant to this episode of care reviewed. Patient is currently hospitalized. Excerpt from most recent progress note: Trauma Surgical Assessment and Plan Goals of care, counseling/discussion Assessment & Plan 04/25 Spoke with Wu (son, poa) he is in agreament for SNF. As his/pt's is likely going to Hospice today in [facility] on another floor. SW with 6th and 11 th floor working together to get a safe DC to likely SNF. 04/27 Continued placement plan between floors with him and (on a sperate unit.) 04/28 Pt co-habit in room with that is on hospice. Encounter for medication review Assessment & Plan Home medications reviewed and updated in admissions tab Discharge planning issues Assessment & Plan - 04/23: awaiting OR with Orthopedics, currently NPO, awaiting PT/OT -04/24: ORIF with ortho, remains NWB, PT/OT to see -04/26-05/01: Patient is medically stable for discharge, SW/CM updated. Discharge pending facility bed availability Anticipated postacute care needs: placement, ortho f/u The following is an excerpt from the most recent Care Management/UM note from EHR: From 04/29 note: Per Medical Chart/Rounds/IDR: Patient medically ready for d/c. ADD: 05/01 Discharge Barriers: VA referral pending for SNF Education Needs Identified (plan): VA referral for SNF at the [facility] sent yesterday, 04/28. CM called and spoke with Jd stratton today and confirmed that it was received. It has been sent to MD for review. No updates as of yet. From 05/01 note: CM called [facility] about request sent to them last week at [phone] no answer left a VM asking for update on plan and if they need any additional documentation. Cosigning Linda Berger and Jonas Stratton to this note for postacute placement coordination. Alerting PCP team to this note for continuity of care. [facility] UM team has also been alerted to this continuing stay via BMS. /es/ VICENTE LAL REGISTERED NURSE Signed: 05/02/2024 13:33 Receipt Acknowledged By: 05/02/2024 14:21 /es/ MONICA HARLEY RN, BSN REGISTERED NURSE 05/05/2024 ADDENDUM STATUS: COMPLETED CONTINUED STAY REVIEW Contact Date: Apr Date of Admission: Apr Records relevant to this episode of care reviewed Patient is currently hospitalized. 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 FABIEN spoke with pt son , Wu, regarding discharge plan if pt goes tot IPR or SNF. 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 Wu states that pt , is also in hospital and SW currently trying to find hospice SNF for her and prefers that pt and pt ( Wu mother) be at same facility. 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 Wu agreeable with plan. CM informed Wu that CM will send mass referrals with 25 mile radius of pt zipcode [facility] and will let him know. Wu verbalized understanding. CM to coordinate with regarding pt spouse discharge to make sure they go to same facility CM emailed myesha to screen pt form medicaid . Per elevate someone will f.u with pt tomorrow. Addendum- [facility] able to accept pt pending financial review and plan regarding assests. Addendum amber- [phone], liaison at [facility], able to accept pt and pt spouse( at [facility] looking for SNF for hospice). CM notified [facility]IR[facility] Stoll, to send referral. For pt spouse. CM left voicemail for pt son, Wu , to see if agreeable with facility awaiting call back. Alerting PCP team to this note for continuity of care /alexandra/ BHASKAR ABRAHAM, RN REGISTERED NURSE Signed: 05/05/2024 08:53 Receipt Acknowledged By: 05/05/2024 09:12 /alexandra/ MONICA HARLEY RN, BSN REGISTERED NURSE 05/08/2024 ADDENDUM STATUS: COMPLETED CONTINUED STAY REVIEW Contact Date: Apr Date of Admission: Apr Date of Procedure: Facility Name: [facility] Name: [facility] Dept: [facility] Contact Phone: Point of Contact Fax Number: Method of Contact: Inpatient level of care required: Surgical EXPERT FROM HOSPITAL NOTE BELOW Currently hospitalized. Per most recent progress note: Interval History: - Pending placement; no acute concerns - Medically stable for discharge Anticipated postacute care needs: Alerting PCP team to this note for continuity of care. /shahab MURO RN REGISTERED NURSE Signed: 05/08/2024 08:17 Receipt Acknowledged By: 05/08/2024 08:46 /shahab HARLEY RN, BSN REGISTERED NURSE 05/08/2024 10:36 /shahab Douglas PA-C PA-C 05/09/2024 ADDENDUM STATUS: COMPLETED CONTINUED STAY REVIEW Contact Date: Apr Date of Admission: Apr Date of Procedure: Facility Name: [facility] Name: [facility] Dept: [facility] Contact Phone: Point of Contact Fax Number: Method of Contact: Inpatient level of care required: Medicine EXPERT FROM HOSPITAL NOTE BELOW Currently hospitalized. Per most recent progress note: Interval History: - no acute events. Pending placement. Of note, patient' last night. PER CM NOTE DATED 05/08- called [facility] at [phone] asked for ann in admissions she was not avaliable left message for return call Anticipated postacute care needs: Alerting PCP team to this note for continuity of care. /shahab MURO RN REGISTERED NURSE Signed: 05/09/2024 08:25 Receipt Acknowledged By: 05/09/2024 11:18 /shahab HARLEY RN, BSN REGISTERED NURSE 05/09/2024 09:35 /shahab Douglas PA-C PA-C 05/10/2024 ADDENDUM STATUS: COMPLETED CONTINUED STAY REVIEW Contact Date: Apr Date of Admission: Apr Date of Procedure: Facility Name: [facility] Name: [facility] Dept: [facility] of Contact Phone: Point of Contact Fax Number: Method of Contact: Inpatient level of care required: Medicine EXPERT FROM HOSPITAL NOTE BELOW Currently hospitalized. Per most recent progress note: 05/09 yesterday morning. Awaiting SNF bed for patient. Patient is medically stable for discharge, SW/CM updated. Discharge pending facility bed availability. Tolerating a diet and having BM's. Will follow up with Orthopedic surgery as outpatient. Pain well controlled. PER CM NOTE DATED 05/09- CM spoke to admission at [facility] at [phone] who stated they may have a bed tomorrow for him but with insurance auth best to start process now. Cm requested therapy to see patient , obtained facility NPI of [phone] and waiting to see which md at facility would accept and what their npi is Anticipated postacute care needs: Alerting PCP team to this note for continuity of care. /shahab MURO RN REGISTERED NURSE Signed: 05/10/2024 08:13 Receipt Acknowledged By: 05/10/2024 08:43 /alexandra/ MONICA HARLEY RN, BSN REGISTERED NURSE 05/15/2024 11:12 /alexandra/ Inez Douglas PA-C PA-C 05/15/2024 ADDENDUM STATUS: COMPLETED CONTINUED STAY REVIEW Contact Date: May Date of Admission: May Date of Procedure: Facility Name: [facility] Name: [facility] Dept: Point of Contact Phone: Point of Contact Fax Number: Method of Contact: Inpatient level of care required: Medicine EXPERT FROM HOSPITAL NOTE BELOW Currently hospitalized. Per most recent progress note: NO NEW EVENTS TO REPORT Anticipated postacute care needs: /shahab MURO RN REGISTERED NURSE Signed: 05/15/2024 08:14 05/15/2024 ADDENDUM STATUS: COMPLETED CONTINUED STAY REVIEW Contact Date: May Date of Admission: Apr Date of Procedure: Facility Name: [facility] Name: [facility] of Contact Dept: Point of Contact Phone: Point of Contact Fax Number: Method of Contact: Inpatient level of care required: Medicine EXPERT FROM HOSPITAL NOTE BELOW Currently hospitalized. Per most recent progress note: PER CM NOTE DATED 05/15/24- CM received call from Mary Lou Bearden, and Ann from [facility] to inform CM that have covid outbreak and that not in network with pt insurance and in order to do 1x contract would need denials of other facilities( pt has multiple accepting facilities ). Per Monisha, may be able to accept pt at [facility]. CM spoke with pt son, Wu, request CM to send him the list of the other accepting facilities . CM sent and informed Wu he will need to reach decision today to send auth. MD team updated . Anticipated postacute care needs: Alerting PCP team to this note for continuity of care. /shahab MURO RN REGISTERED NURSE Signed: 05/15/2024 14:43 Receipt Acknowledged By: 05/15/2024 15:03 /alexandra/ MONICA HARLEY RN, BSN REGISTERED NURSE 05/16/2024 08:47 /alexandra/ Inez Douglas PA-C PA-C 05/15/2024 ADDENDUM STATUS: COMPLETED remains at [facility] awaiting transfer to SNF. /shahab HARLEY RN, BSN REGISTERED NURSE Signed: 05/15/2024 15:12 05/16/2024 ADDENDUM STATUS: COMPLETED CONTINUED STAY REVIEW Contact Date: May Date of Admission: Apr Date of Procedure: Facility Name: [facility] Name: [facility] Contact Dept: Point of Contact Phone: Point of Contact Fax Number: Method of Contact: Inpatient level of care required: Medicine EXPERT FROM HOSPITAL NOTE BELOW Currently hospitalized. Per most recent progress note: NO NEW EVENTS TO REPORT Anticipated postacute care needs: /shahab MURO RN REGISTERED NURSE Signed: 05/16/2024 08:02 05/17/2024 ADDENDUM STATUS: COMPLETED Discharge Disposition Date of discharge: May Disposition Discharge to Penitent[facility] Facility Comment: [facility] and rehab DC records sent securely to [place] PCP and RNCM. Alerting PCP team to this note for continuity of care. Records r/t this episode of care sent to [facility] for scanning. EXPERT FROM ER DISCHARGE NOTE BELOW Hospital Course: Goals of care, counseling/discussion Assessment & Plan 04/25 Spoke with Wu (son, poramos) he is in agreament for SNF. As his/pt's is likely going to Hospice today in [facility] on another floor. SW with 6th and 11 th floor working together to get a safe DC to likely SNF. 04/27 Continued placement plan between floors with him and (on a sperate unit.) 04/28 Pt co-habit in room with that is on hospice. 05/09 yesterday morning. Awaiting SNF bed for patient. Patient is medically stable for discharge, SW/CM updated. Discharge pending facility bed availability Encounter for medication review Assessment & Plan Home medications reviewed and updated in admissions tab Discharge planning issues Assessment & Plan - 04/23: awaiting OR with Orthopedics, currently NPO, awaiting PT/OT -04/24: ORIF with ortho, remains NWB, PT/OT to see -04/26-05/04: Patient is medically stable for discharge, SW/CM updated. Discharge pending facility acceptance [facility], CM to follow up if this applies to rehab or SNF, and continue discharge planning 05/05: Accepting facility for prison [facility], pending discharge 05/06: Medically ready for discharge, spiritual care consult. 05/10 Awaiting SNF bed - 05/12: Patient is medically stable for discharge, SW/CM updated. Discharge pending facility acceptance -05/16 Discharged to SNF Treatment note competed 04/25 Acute traumatic pain Assessment & Plan - Tylenol 650 mg q6h PRN - Robaxin 750mg TID - Oxycodone 5mg q4h PRN -Pain well controlled on above regimen. Hyperlipidemia Assessment & Plan Rosuvastatin 20mg daily Hypothyroidism Assessment & Plan - Continue Synthroid 150mcg daily Diabetes (HCC) Assessment & Plan - Hold Metformin and Glipizide - HgbA1c (04/23): 6.3 - SSI - continue to trend glucose -will resume home medications at discharge. Hypertension Assessment & Plan - Continue Amlodipine 2.5mg daily - Continue Hydrochlorothiazide 25mg daily - Continue Aspirin 81mg daily * Closed fracture of distal end of left fibula, unspecified fracture morphology, initial encounter Assessment & Plan #L liss equivalent ankle fracture - Orthopedic consult -splinted in ED - L ankle xr (04/22): Unchanged alignment of comminuted distal left fibular fracture with mild residual lateral displacement. Mild widening of the medial clear space is unchanged, fracture of the posteromedial talus is better seen on the prior examination. Volkmann's tubercle avulsion fracture is unchanged, moderate soft tissue swelling - s/p OR 04/24 ORIF left ankle -04/24 POD 0 ORIF left ankle, remains NWB, PT/OT to evaluate, DVT prophylaxis - [facility] LLE - Maintain SLS until follow up - Sutures/Aaron removed by ortho while inpatient. - [facility] boot to LLE - Will discharge with Aspirin 81mg BID for DVT prophylaxis - Follow Up: Patient has follow up scheduled on 05/16/[address] Morris located at [facility] Operative Procedures Performed: OPEN REDUCTION INTERNAL FIXATION - ANKLE (Left: Ankle) Discharge Disposition: Discharge to SNF START taking these medications: acetaminophen 325 mg tablet 650 mg, oral, Every 6 hours PRN Commonly known as: TYLENOL bisacodyL 10 mg suppository 10 mg, rectal, Daily PRN Commonly known as: DULCOLAX cholecalciferol 1,000 unit capsule 1,000 Units, oral, Daily Commonly known as: VITAMIN D-3 lidocaine 4 % adhesive patch,medicated 1 patch, transdermal, Every 24 hours Commonly known as: ASPERCREME methocarbamoL 750 mg tablet 750 mg, oral, 3 times daily Commonly known as: ROBAXIN polyethylene glycol 17 gram packet 17 g, oral, 2 times daily Commonly known as: MIRALAX ramelteon 8 mg tablet 8 mg, oral, Nightly PRN Commonly known as: ROZEREM senna-docusate 8.6-50 mg 2 tablets, oral, 2 times daily Commonly known as: PERICOLACE CHANGE how you take these medications: aspirin 81 mg chewable tablet 81 mg, oral, 2 times daily Doctor's comments: Once course is completed you can resume once a day dosing What changed: when to take this gabapentin 300 mg capsule 300 mg, oral, 3 times daily Commonly known as: NEURONTIN What changed: how much to take STOP taking these medications: meloxicam 15 mg tablet Commonly known as: MOBIC traMADoL 50 mg tablet Commonly known as: ULTRAM Future Appointments Date Time Provider Department Center 06/20/2024 10:20 AM Aguilar Morris MD [facility] 6A OS /es/ CHARLENE SILVAN RN REGISTERED NURSE Signed: 05/17/2024 10:38 Receipt Acknowledged By: * AWAITING SIGNATURE * MONICA HARLEY * AWAITING SIGNATURE * INEZ DOUGLAS KEVIN L [facility]
--- OUTSIDE RECORDS SUMMARY | 2024-05-25 14:38 | XMS_ITS ---
Author Name [facility] [facility] [place] [facility] [place] Address [address] [place] [address] Care Team Providers Care Architectural Project Captain Name Role Phone TRACE DOUGLAS Primary Care [...] PART B Jul 15, 2014 PART B [id number] Ronda COMBS PATIENT MEDICARE (WNR) MEDICARE (M) PART A Jul 15, 2014 PART A [id number] Ronda COMBS PATIENT Selected Encounter This section includes the information on record at [place] for the Encounter. Date/Time Encounter Type Encounter Description Reason Pro vider Source Aug 31, 2023 01:16 PM Outpatient Encounter ADMIN PAT ACTIVTIES (MASNONCT) IHE Encounter Template Text not used by [place] Plan of Treatment: Future Appointments (+ 6 [...] 20 appointments. The data comes from all [place] treatment facilities. Appointment Date/Time Appointment Type Appointme nt Facility Name Dec 14, 2023 10:00 AM AMBULATORY - SURGERY [facility] Jan 07, 2024 11:30 AM AMBULATORY - MEDICINE [facility] Feb 04, 2024 09:30 AM AMBULATORY - SURGERY [facility] Feb 04, 2024 01:30 PM AMBULATORY - SURGERY [facility] Social History: Smoking Status (Most current) and Tobacco Use (All prior to encounter date) This section includes the most current, and the historical, smoking and tobacco- related health factors from the [place] facility where the Encounter took place. Current Smoking Status This section includes the most current smoking, or tobacco-related health factor, from the [place] facility where the Encounter took place. Date/Time Current Smoking Status Comment [facility] Nov 20, 2022 06:38 PM ORYX ADMIT TOBACCO SCREEN NO [facility] Tobacco Use History This section includes a history of the smoking, or tobacco-related health factors, that were collected on or before the date of the Encounter. The data comes from the [place] facility where the Encounter took place. Date/Time Smoking Status/Tobacco Use Comment F acility Apr 08, 2020 12:19 AM ORYX ADMIT TOBACCO SCREEN NO [facility] Nov 29, 2019 08:47 AM VA-TOBACCO FORMER USER [facility] Nov 29, 2019 08:47 AM VA-TOBACCO QUIT 15 YRS OR MORE [facility] Feb 02, 2014 07:53 PM QUIT TOBACCO >7 YEARS AGO [facility] Advance Directives: All historical and current Section Date Range: From patient's date of to the date document was created. This section includes ALL of a patient's completed or amended [place] Advance and Rescinded Directives. The entries below indicate that a directive exists for the patient, but an actual copy is not included with this document. The data comes from all [place] facilities. Date Advance Directives Provider Source Feb 05, 2014 ADVANCE DIRECTIVE DISCUSSION JENNIFER,JAILENE P [facility] Encounter Notes: All associated encounter notes This section contains the clinical notes associated to the Encounter. Date/Time Encounter Note(s) Provider Source Aug 31, 2023 04:06 PM ADDENDUM: LOCAL TITLE: Addendum STANDARD TITLE: ADDENDUM DATE OF NOTE: AUG 31, 2023@16:06:51 ENTRY DATE: AUG 31, 2023@16:06:52 AUTHOR: DONNA CAT EXP COSIGNER: URGENCY: STATUS: COMPLETED Addendum: requesting transportation to appointments. He does not have private transportation for long distances. He ambulates with a cane and can communicate via text messages, so Uber is an option for him also. Alerting PCP for Beneficiary travel consult if agreeable. /alexandra/ BHASKAR VALLE, RN REGISTERED NURSE Signed: 08/31/2023 16:08 Receipt Acknowledged By: 08/31/2023 20:01 /alexandra/ RAGHAV JOHNSON MSN, AGNP-C for TRACE DOUGLAS --- Original Document --- 08/31/23 CONTACT NOTE STL: Veterans name and last 4 were used to verify identity Verified Veterans telephone #/Updated telephone number in the system REASON FOR CALL: Other: Reason for call: [place] called wanting tos peak with rncm regarding an appt and to talk about PT /es/ MAVERICK BLANCO advanced medical device engineer Signed: 08/31/2023 13:17 Receipt Acknowledged By: 08/31/2023 15:56 /BHASKAR Hearn, RN REGISTERED NURSE 08/31/2023 ADDENDUM STATUS: COMPLETED states he recently saw the PT and was told he was not improving. He has decided to stop attending his last 2 visits as it wasn't helping. He would like to know the next options. Informed that he missed his last appointment with provider and needs to reschedule. He will be able to discuss options at the appointment. v/u and agreeable. MSA will call to reschedule the appointment. /BHASKAR Hearn, RN REGISTERED NURSE Signed: 08/31/2023 16:06 DONNA CAT [facility] Aug 31, 2023 01:16 PM ADMINISTRATIVE NOT E: LOCAL TITLE: CONTACT NOTE STL STANDARD TITLE: ADMINISTRATIVE NOTE DATE OF NOTE: AUG 31, 2023@13:16 ENTRY DATE: AUG 31, 2023@13:17:02 AUTHOR: MAVERICK BLANCO COSIGNER: URGENCY: STATUS: COMPLETED CONTACT NOTE STL Has ADDENDA Veterans name and last 4 were used to verify identity Verified Veterans telephone #/Updated telephone number in the system REASON FOR CALL: Other: Reason for call: [place] called wanting tos peak with rncm regarding an appt and to talk about PT /alexandra/ MAVERICK BLANCO advanced medical device engineer Signed: 08/31/2023 13:17 Receipt Acknowledged By: 08/31/2023 15:56 /BHASKAR Hearn, RN REGISTERED NURSE 08/31/2023 ADDENDUM STATUS: COMPLETED states he recently saw the PT and was told he was not improving. He has decided to stop attending his last 2 visits as it wasn't helping. He would like to know the next options. Informed that he missed his last appointment with provider and needs to reschedule. He will be able to discuss options at the appointment. v/u and agreeable. MSA will call to reschedule the appointment. /BHASKAR Hearn, RN REGISTERED NURSE Signed: 08/31/2023 16:06 08/31/2023 ADDENDUM STATUS: COMPLETED Addendum: requesting transportation to appointments. He does not have private transportation for long distances. He ambulates with a cane and can communicate via text messages, so Uber is an option for him also. Alerting PCP for Beneficiary travel consult if agreeable. /alexandra/ BHASKAR VALLE, RN REGISTERED NURSE Signed: 08/31/2023 16:08 Receipt Acknowledged By: * AWAITING SIGNATURE * TRACE DOUGLAS MAYA J [facility]
--- OUTSIDE RECORDS SUMMARY | 2024-05-25 14:38 | XMS_ITS | Encounter Summary ---
Author Name [facility] [place] [facility] [place] Address [address] [place] [id number] Care Team Providers Care Fraud Manager Name Role Phone TRACE DOUGLAS Primary Care [...] PART A Jul 15, 2014 PART A [id number] [id number] Ronda COMBS PATIENT MEDICARE (WNR) MEDICARE (M) PART B Jul 15, 2014 PART B [id number] 37A [phone] Ronda COMBS PATIENT Selected Encounter This section includes the information on record at [place] for the Encounter. Date/Time Encounter Type Encounter Description Reason Provider Source Jun 15, 2023 04:02 PM Outpatient Encounter EYE TELE SCREENING ICD-10-CM Z13.5 Encounter for screening for eye and ear disorders JOSHUA JACKSON IHRonda Encounter Template Text not used by [facility] Assessments - Encounter Diagnoses This section includes the primary and secondary diagnoses documented for the Encounter. 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 This section includes future appointments and future orders which are active, pending or scheduled. Future Appointments This section includes appointments that were scheduled to occur 6 months from the date of the Encounter, up to a maximum of 20 appointments. The data comes from all [facility]. Appointment Date/Time Appointment Type Appointme nt Facility Name Jun 18, 2023 08:45 AM AMBULATORY - MEDICINE [facility] Jul 22, 2023 09:45 AM AMBULATORY - REHAB [facility] Aug 26, 2023 02:00 PM AMBULATORY - MEDICINE [facility] Dec 14, 2023 10:00 AM AMBULATORY - SURGERY [facility] Active, Pending, and Scheduled Orders This section includes a listing of several types of active, pending, and scheduled orders, including clinic medications orders, diagnostic test orders, procedure orders and consult orders; where the start date of the order is 45 days before the date of the Encounter or 45 days after the date of theEncounter. The data comes from all [facility]. Test Date/Time Test Type Test Details Facility Name May 20, 2023 12:00 AM Laboratory - Chemistry Order TSH (MA-PB-STL) GOLD/RED SST SERUM SP [facility] May 20, 2023 12:00 AM Laboratory - Chemistry Order HGA1C BLOOD SP [facility] May 20, 2023 12:00 AM Laboratory - Chemistry Order MICRAL/CREAT PROFILE (STL) URINE YELLOW SP [facility] May 20, 2023 12:00 AM Laboratory - Chemistry Order METHADONE PANEL (STL) URINE COLLECTION TUBE SP [facility] Jun 18, 2023 12:00 AM Laboratory - Chemistry Order COMPREHENSIVE METABOLIC PANEL GREEN LI/HEP BLD/PLAS PLASMA SP [facility] Jun 18, 2023 12:00 AM Laboratory - Chemistry Order LIPID PANEL (STL) GREEN LI/HEP BLD/PLAS PLASMA [facility] Jun 18, 2023 12:00 AM Laboratory - Chemistry Order TSH (MA-PB-STL) GOLD/RED SST SERUM [facility] Jun 18, 2023 12:00 AM Laboratory - Chemistry Order PROST. SPECIFIC AG.(PB-STL) GOLD/RED SST SERUM [facility] Jun 18, 2023 12:00 AM Laboratory - Chemistry Order CBC BLOOD [facility] Jun 18, 2023 12:00 AM Laboratory - Chemistry Order HGA1C BLOOD [facility] Jun 18, 2023 12:00 AM Laboratory - Chemistry Order URINALYSIS (STL) URINE [facility] Social History: Smoking Status (Most current) and Tobacco Use (All prior to encounter date) This section includes the most current, and the historical, smoking and tobacco- related health factors from the [place] facility where the Encounter took place. Current Smoking Status This section includes the most current smoking, or tobacco-related health factor, from the [place] facility where the Encounter took place. Date/Time Current Smoking Status Comment [facility] Apr 15, 2023 11:30 AM [place]-TOBACCO FORMER USER [facility] Tobacco Use History This section includes a history of the smoking, or tobacco-related health factors, that were collected on or before the date of the Encounter. The data comes from the [place] facility where the Encounter took place. Date/Time Smoking Status/Tobacco Use Comment [facility] Apr 15, 2023 11:30 AM [place]-TOBACCO QUIT 15 YRS OR MORE [facility] Dec 31, 2021 10:30 AM [place]-TOBACCO FORMER USER [facility] Dec 31, 2021 10:30 AM [place]-TOBACCO QUIT 15 YRS OR MORE [facility] Dec 02, 2020 01:00 PM [place]-TOBACCO FORMER USER [facility] Dec 02, 2020 01:00 PM VA-TOBACCO QUIT 15 YRS OR MORE [facility] Jul 25, 2018 09:15 AM VA-TOBACCO FORMER USER [facility] Jul 25, 2018 09:15 AM VA-TOBACCO QUIT 15 YRS OR MORE [facility] Jul 19, 2017 11:02 AM QUIT TOBACCO >7 YEARS AGO [facility] Mar 16, 2017 11:32 AM QUIT TOBACCO >7 YEARS AGO [facility] Dec 08, 2016 01:28 PM LIFETIME NON-USER OF TOBACCO [facility] Feb 06, 2016 01:06 PM LIFETIME NON-USER OF TOBACCO [facility] Jan 07, 2015 09:04 AM QUIT TOBACCO >7 YEARS AGO [facility] Feb 06, 2014 02:33 PM LIFETIME NON-USER OF TOBACCO [facility] Sep 26, 2013 10:45 AM QUIT TOBACCO >7 YEARS AGO [facility] Sep 20, 2012 02:07 PM QUIT TOBACCO >7 YEARS AGO [facility] Advance Directives: All historical and current Section Date Range: From patient's date of to the date document was created. This section includes ALL of a patient's completed or amended [place] Advance and Rescinded Directives. The entries below indicate that a directive exists for the patient, but an actual copy is not included with this document. The data comes from all [place] facilities. Date Advance Directives Provider Source Feb 05, 2014 ADVANCE DIRECTIVE DISCUSSION JAILENE RODRIGUEZ [facility] Encounter Notes: All associated encounter notes This section contains the clinical notes associated to the Encounter. Date/Time Encounter Note(s) Provider Source Jun 15, 2023 04:02 PM OPTOMETRY CONSULT: LOCAL TITLE: DIABETIC TELERETINAL IMAGING CONSULT STANDARD TITLE: OPTOMETRY CONSULT DATE OF NOTE: JUN 15, 2023@16:02 ENTRY DATE: JUN 15, 2023@16:02:09 AUTHOR: JOSHUA JACKSON COSIGNER: URGENCY: STATUS: COMPLETED TELE-EYE SCREENING READER NOTE: IMAGE QUALITY ASSESSMENT: Image quality adequate TELE-EYE SCREENING ASSESSMENT: Diabetic Patient Type 2 RIGHT RETINAL IMAGES: Diabetic Retinopathy Assessment: Retinopathy Mild Nonproliferative No indication of Clinically Significant Maculopathy/Edema Comment: few db hemes Macula Assessment: No apparent abnormalities Optic Nerve Head Assessment: No apparent abnormalities Other Assessment: No apparent abnormalities LEFT RETINAL IMAGES: Diabetic Retinopathy Assessment: Retinopathy Mild Nonproliferative No indication of Clinically Significant Maculopathy/Edema Comment: rare db hemes Macula Assessment: No apparent abnormalities Optic Nerve Head Assessment: No apparent abnormalities Other Assessment: No apparent abnormalities EYE SCREENING RESULTS: Diabetic Retinopathy: ABNORMAL - DIABETIC RETINOPATHY PRESENT Macular Degeneration: Normal - No macular degeneration apparent Glaucoma: Normal - No glaucomatous nerve damage apparent Other Findings : No other time-sensitive findings RECOMMENDATIONS: Refer for [id number] exam Refer to: [facility]ER [facility] or [facility] 6 months: Dec Referral/appointment reason: Comprehensive eye exam recommended for next eye care visit Diabetic Findings Non-proliferative diabetic retinopathy Other findings H/o of retinoschisis, visual disturbances c ICA stenosis is not a candidate for future eye screening. Munith verifies that a review of past eye clinic records has been completed (if available) and a review for future eye appointments has been completed to help reduce duplication of care. Yes Cumulative time of review and management: 5 minutes or more * Digital retinal imaging has been shown to be an effective method * * of screening for conditions such as diabetic retinopathy, but it * * cannot substitute for a comprehensive gugk-ut-oymq eye exam. * * * * Comprehensive eye exams are recommended every 1-2 years, or more * * frequently as determined by the presence of risk factors, early * * signs or symptoms, or known history of ocular disease. * * * * [facility] is a self refer/direct-scheduling service that allows * * you to call to schedule an appointment without a referral being * * required. We recommend calling to schedule your appointment at * * least 90 days in advance of the desired appointment date. * Appendix (abbreviations): AC (Anterior Chamber); AREDS (Age Related Eye Disease Study); ARX (Auto Refraction); BID (Two Times Daily); C:D (Cup-to-Disc); CIC (Care In The Community); CONCRETE STONE FINISHER (Cyclophotocoagulation); CSME (Clinically Significant Macular Edema); DFE (Dilated Fundus Exam); Dorz/Timol (Dorzolamide/Timolol); DSEK (Descemet's Stripping Endothelial Keratoplasty); FAF (Fundus Autofluorescence); F/U (Follow up); GCC (Ganglion Cell Complex); Gonio (Gonioscopy); H/O (History Of); HTN (Hypertension); HVF (Leonard Visual Field); IOL (Intraocular Lens); IOP (Intraocular Pressure); K (Keratometry); LASIK (Laser-Assisted In Situ Keratomileusis); MD (Mean Deviation when used with visual field); dB (decibels); MRx (Manifest Refraction); NeoPolyDex/Erythro (Neomycin Polymyxin B Dexamethasone/Erythromycin) ; NFL (Nerve Fiber Layer); NPDR (Nonproliferative Diabetic Retinopathy); OCT (Optical Coherence Tomography); OD (Right Eye); OS (Left Eye); OU (Both Eyes); PDR (Proliferative Diabetic Retinopathy); PFATs (Preservative Free Artificial Tears); RK (Radial Keratotomy); RNFL (Retinal Nerve Fiber Layer); RTC (Return To Clinic); scVA (Visual Acuity Without Correction/Glasses); ORLANDO (Vietnamese Interactive Threshold Algorithm); TID (Three Times Daily); UV (Ultraviolet); VA (Visual Acuity); WRx (Prescription glasses currently worn); WRx VA (Visual Acuity With Prescription Glasses); YAG (Yttrium Aluminum [place]) /alexandra/ JOSHUA JACKSON, OD Staff Physician, Optometry Signed: 06/15/2023 16:03 Receipt Acknowledged By: 06/16/2023 08:07 /alexandra/ RAYMOND HARDY TELE[employer] CLINICAL SMALL OFFSET PRINTER JOSHUA JACKSON [facility]
--- OUTSIDE RECORDS SUMMARY | 2024-05-25 14:38 | XMS_ITS | Encounter Summary ---
Author Name [facility] [place] Address [address] [place] [address] Care Team Providers Care Double Bass Player Name Role Phone TRACE DOUGLAS Primary Care [...] PART A Jul 15, 2014 PART A [id number] Ronda COMBS PATIENT MEDICARE (WNR) MEDICARE (M) PART B Jul 15, 2014 PART B [id number] [phone] Ronda COMBS PATIENT Selected Encounter This section includes the information on record at [place] for the Encounter. Date/Time Encounter Type Encounter Description Reason Provider Source November 01, 2023 09:40 AM Outpatient Encounter TELEPHONE PRIMARY CARE MONICA HARLEY Encounter Template Text not used by [place] [...] 20 appointments. The data comes from all [facility]. Appointment Date/Time Appointment Type Appointme nt Facility Name Dec 14, 2023 10:00 AM AMBULATORY - SURGERY [facility] Jan 07, 2024 11:30 AM AMBULATORY - MEDICINE [facility] Feb 04, 2024 09:30 AM AMBULATORY - SURGERY [facility] Feb 04, 2024 01:30 PM AMBULATORY - SURGERY [facility] Apr 04, 2024 09:30 AM AMBULATORY - MEDICINE [facility] Active, Pending, and Scheduled Orders This section includes a listing of several types of active, pending, and scheduled orders, including clinic medications orders, diagnostic test orders, procedure orders and consult orders; where the start date of the order is 45 days before the date of the Encounter or 45 days after the date of theEncounter. The data comes from all [facility]. Test Date/Time Test Type Test Details Facility Name October 20, 2023 12:00 AM Laboratory - Chemi stry Order BASIC METABOLIC PANEL GREEN LI/HEP BLD/PLAS PLASMA SP [facility] October 20, 2023 12:00 AM Laboratory - Chemi stry Order LIPID PANEL (STL) GREEN LI/HEP BLD/PLAS PLASMA SP ONCE [facility] October 20, 2023 12:00 AM Laboratory - Chemi stry Order CBC BLOOD SP [facility] October 20, 2023 12:00 AM Laboratory - Chemi stry Order MICRAL/CREAT PROFILE (STL) URINE SP [facility] October 20, 2023 12:00 AM Laboratory - Chemi stry Order HGA1C BLOOD SP [facility] October 20, 2023 12:00 AM Laboratory - Chemi stry Order PROST. SPECIFIC AG.(PB-STL) GOLD/RED SST SERUM SP [facility] October 20, 2023 12:00 AM Laboratory - Chemi stry Order TSH W/ REFLEX FT4 (STL) GREEN LI/HEP BLD/PLAS PLASMA SP [facility] November 01, 2023 12:00 AM Laboratory - Chemi stry Order TSH (MA-PB) GOLD/RED SST SERUM SP [facility] Social History: Smoking Status (Most current) and [...] 06:38 PM ORYX ADMIT TOBACCO SCREEN NO [facility] Tobacco Use History This section includes a history of the smoking, or tobacco-related health factors, that were collected on or before the date of the Encounter. The data comes from the [place] facility where the Encounter took place. Date/Time Smoking Status/Tobacco Use Comment F acility Apr 08, 2020 12:19 AM ORYX ADMIT TOBACCO SCREEN NO [facility] Nov 29, 2019 08:47 AM VA-TOBACCO FORMER USER [facility] Nov 29, 2019 08:47 AM VA-TOBACCO QUIT 15 YRS OR MORE [facility] Feb 02, 2014 07:53 PM QUIT TOBACCO >7 YEARS AGO [facility] Advance Directives: All historical and current Section [...] 05, 2014 ADVANCE DIRECTIVE DISCUSSION JAILENE RODRIGUEZ [facility] Encounter Notes: All associated encounter notes This section contains the clinical notes associated to the Encounter. Date/Time Encounter Note(s) Provider Source November 01, 2023 09:41 AM NURSING NOTE: LOCAL TITLE: V15 PACT TELEPHONE CONTACT NOTE STL STANDARD TITLE: NURSING NOTE DATE OF NOTE: NOVEMBER 01, 2023@09:41 ENTRY DATE: NOVEMBER 01, 2023@09:41:08 AUTHOR: LAMBERT,MONICA L EXP COSIGNER: URGENCY: STATUS: COMPLETED V15 PACT TELEPHONE CONTACT NOTE STL Has ADDENDA Unable to contact: Left voice mail message instructing patient to return call. Outbound call to patient for: per alert: received request for refill of synthroid. pt well overdue for lab draw. pt needs labs. please have pt do labs. will send 2 week supply. Left VM in regards to above. Also, has an appt on 11/09/23 with PCP but no transportation request located. /shahab HARLEY RN, BSN REGISTERED NURSE Signed: 11/01/2023 09:43 11/01/2023 ADDENDUM STATUS: COMPLETED Travel Request ID #: [id number] Request Status: Denied First letter of Last Name: B Last 4: [id number] Mode: Common Carrier Appointment Date: 2023-11-09 Appointment Time: 11:30 [facility] is unable to accommodate the requested transportation. When the appointment is rescheduled, please create a new travel request. Include [Request ID #] in other information section of the new travel request. /shahab HARLEY RN, BSN REGISTERED NURSE Signed: 11/01/2023 11:40 11/01/2023 ADDENDUM STATUS: COMPLETED Additional VM left for to inform him that transportation for his 11/09/23 appt is not available. Informed to call for rescheduling if he is unable to get a ride to his appt.. Also, recommended he could go to [facility] to have labs completed which is approx. 28 miles from his home. /shahab HARLEY RN, BSN REGISTERED NURSE Signed: 11/01/2023 12:01 11/01/2023 ADDENDUM STATUS: COMPLETED returned call and informed of above. He reports he is unable to get a ride to his current appt on 11/09/23 and in agreement to be transferred to [facility] for rescheduling at least 3 weeks out in order to request new transportation. also reports he will do his best to find a ride to over the next 2 weeks to have labs completed for further medication refills. /alexandra/ MONICA HARLEY RN, BSN REGISTERED NURSE Signed: 11/01/2023 16:03 MONICA HARLEY [facility]
--- OUTSIDE RECORDS SUMMARY | 2024-05-25 14:38 | XMS_ITS | Encounter Summary ---
Author Name [facility] [place] Address [address] [place] [address] Care Team Providers Care Car Dryer Name Role Phone TRACE DOUGLAS Primary Care [...] PART A Jul 15, 2014 PART A [id number] [id number] Ronda CEJA PATIENT MEDICARE (WNR) MEDICARE (M) PART B Jul 15, 2014 PART B [id number] [phone] Ronda CEJA PATIENT Selected Encounter This section includes the information on record at [place] for the Encounter. Date/Time Encounter Type Encounter Description Reason Pro vider Source Jun 19, 2023 09:40 AM Outpatient Encounter ADMIN PAT ACTIVTIES (MASNONCT) IHE Encounter Template Text not used by [place] Plan of Treatment: Future Appointments (+ 6 [...] 20 appointments. The data comes from all [facility]. Appointment Date/Time Appointment Type Appointme nt Facility Name Jul 22, 2023 09:45 AM AMBULATORY - REHAB MEDICIN E [facility] Aug 26, 2023 02:00 PM AMBULATORY - MEDICINE [facility] Dec 14, 2023 10:00 AM AMBULATORY - SURGERY [facility] Active, Pending, and Scheduled Orders This section includes a listing of several types of active, pending, and scheduled orders, including clinic medications orders, diagnostic test orders, procedure orders and consult orders; where the start date of the order is 45 days before the date of the Encounter or 45 days after the date of theEncounter. The data comes from all [facility]. Test Date/Time Test Type Test Details Facility Name May 20, 2023 12:00 AM Laboratory - Chemistry Order TSH (MA-PB-STL) GOLD/RED SST SERUM [facility] May 20, 2023 12:00 AM Laboratory - Chemistry Order HGA1C BLOOD [facility] May 20, 2023 12:00 AM Laboratory - Chemistry Order MICRAL/CREAT PROFILE (STL) URINE YELLOW SP [facility] May 20, 2023 12:00 AM Laboratory - Chemistry Order METHADONE PANEL (STL) URINE COLLECTION TUBE SP [facility] Jun 18, 2023 12:00 AM Laboratory - Chemistry Order LIPID PANEL (STL) GREEN LI/HEP BLD/PLAS PLASMA SP [facility] Jun 18, 2023 12:00 AM Laboratory - Chemistry Order CBC BLOOD [facility] Jun 18, 2023 12:00 AM Laboratory - Chemistry Order TSH (MA-PB-STL) GOLD/RED SST SERUM [facility] Jun 18, 2023 12:00 AM Laboratory - Chemistry Order PROST. SPECIFIC AG.(PB-STL) GOLD/RED SST SERUM [facility] Jun 18, 2023 12:00 AM Laboratory - Chemistry Order HGA1C BLOOD SP [facility] Jun 18, 2023 12:00 AM Laboratory - Chemistry Order COMPREHENSIVE METABOLIC PANEL GREEN LI/HEP BLD/PLAS PLASMA SP [facility] Jun 18, 2023 12:00 AM Laboratory - Chemistry Order URINALYSIS (STL) URINE SP [facility] Social History: Smoking Status (Most current) and Tobacco Use (All prior to encounter date) This section includes the most current, and the historical, smoking and tobacco- related health factors from the [place] facility where the Encounter took place. Current Smoking Status This section includes the most current smoking, or tobacco-related health factor, from the [place] facility where the Encounter took place. Date/Time Current Smoking Status Comment Facil ity Nov 20, 2022 06:38 PM ORYX ADMIT TOBACCO SCREEN NO [facility] Tobacco Use History This section includes a history of the smoking, or tobacco-related health factors, that were collected on or before the date of the Encounter. The data comes from the [place] facility where the Encounter took place. Date/Time Smoking Status/Tobacco Use Comment F acility Apr 08, 2020 12:19 AM ORYX ADMIT TOBACCO SCREEN NO [facility] Nov 29, 2019 08:47 AM VA-TOBACCO FORMER USER [facility] Nov 29, 2019 08:47 AM VA-TOBACCO QUIT 15 YRS OR MORE [facility] Feb 02, 2014 07:53 PM QUIT TOBACCO >7 YEARS AGO [facility] Advance Directives: All historical and current Section Date Range: From patient's date of to the date document was created. This section includes ALL of a patient's completed or amended [place] Advance and Rescinded Directives. The entries below indicate that a directive exists for the patient, but an actual copy is not included with this document. The data comes from all [place] facilities. Date Advance Directives Provider Source Feb 05, 2014 ADVANCE DIRECTIVE DISCUSSION JAILENE RODRIGUEZ [facility] Encounter Notes: All associated encounter notes This section contains the clinical notes associated to the Encounter. Date/Time Encounter Note(s) Provider Source Jun 19, 2023 09:40 AM PHYSICIAN LETTERS: LOCAL TITLE: NO CONTACT LETTER STL STANDARD TITLE: PHYSICIAN LETTERS DATE OF NOTE: JUN 19, 2023@09:40 ENTRY DATE: JUN 19, 2023@09:40:08 AUTHOR: DEE GARVEY EXP COSIGNER: URGENCY: STATUS: COMPLETED [facility] [address] [place] [address] JUN 19, 2023 [address] CE[address] [place] [address] Dear Wilfredo Ceja, Thank you for choosing the [facility] as your primary choice for health care. As a partner in your health care, we are attempting to contact you because we have been unsuccessful in reaching you by phone to schedule your clinic appointment. Please call us at [phone], [phone] to speak to us regarding making an appointment in the PHYSICAL THERAPY clinic. Your good health is important to [...] the clinic to inquire about scheduling. Sincerely, DEE GARVEY [employer] Embossing Press Operator, PTSD [address] CEJA [facility]
--- OUTSIDE RECORDS SUMMARY | 2024-05-25 14:38 | XMS_ITS | Encounter Summary ---
Author Name [place] Address [address] [place] [address] Care Team Providers Care Field Service Manager Name Role Phone TRACE DOUGLAS Primary [...] PART B Jul 15, 2014 PART B [id number] [id number] Ronda COMBS PATIENT MEDICARE (WNR) MEDICARE (M) PART A Jul 15, 2014 PART A [id number] Ronda COMBS PATIENT Selected Encounter This section includes the information on record at [place] for the Encounter. Date/Time Encounter Type Encounter Description Reason Pro vider Source Jul 20, 2023 12:00 AM Outpatient Encounter GENERAL INTERNAL MEDICINE IHE Encounter Template Text not used by [place] Plan of Treatment: Future Appointments (+ 6 [...] 20 appointments. The data comes from all [facility]. Appointment Date/Time Appointment Type Appointme nt Facility Name Jul 22, 2023 09:45 AM AMBULATORY - REHAB MEDICIN E [facility] Aug 26, 2023 02:00 PM AMBULATORY - MEDICINE [facility] Dec 14, 2023 10:00 AM AMBULATORY - SURGERY . [facility] Jan 07, 2024 11:30 AM AMBULATORY - MEDICINE [facility] Active, Pending, and Scheduled Orders This section includes a listing of several types of active, pending, and scheduled orders, including clinic medications orders, diagnostic test orders, procedure orders and consult orders; where the start date of the order is 45 days before the date of the Encounter or 45 days after the date of theEncounter. The data comes from all [facility]. Test Date/Time Test Type Test Details Facility Name Jun 18, 2023 12:00 AM Laboratory - Chemistry Order COMPREHENSIVE METABOLIC PANEL GREEN LI/HEP BLD/PLAS PLASMA [facility] Jun 18, 2023 12:00 AM Laboratory - Chemistry Order LIPID PANEL (STL) GREEN LI/HEP BLD/PLAS PLASMA [facility] Jun 18, 2023 12:00 AM Laboratory - Chemistry Order CBC BLOOD [facility] Jun 18, 2023 12:00 AM Laboratory - Chemistry Order PROST. SPECIFIC AG.(PB-STL) GOLD/RED SST SERUM [facility] Jun 18, 2023 12:00 AM Laboratory - Chemistry Order TSH (MA-PB-STL) GOLD/RED SST SERUM [facility] Jun 18, 2023 12:00 AM Laboratory - Chemistry Order HGA1C BLOOD [facility] Jun 18, 2023 12:00 AM Laboratory - Chemistry Order URINALYSIS (STL) URINE [facility] Social History: Smoking Status (Most current) and Tobacco Use (All prior to encounter date) This section includes the most current, and the historical, smoking and tobacco- related health factors from the [place] facility where the Encounter took place. Current Smoking Status This section includes the most current smoking, or tobacco-related health factor, from the [place] facility where the Encounter took place. Date/Time Current Smoking Status Comment [facility] Nov 20, 2022 06:38 PM ORYX ADMIT TOBACCO SCREEN NO [facility] Tobacco Use History This section includes a history of the smoking, or tobacco-related health factors, that were collected on or before the date of the Encounter. The data comes from the [place] facility where the Encounter took place. Date/Time Smoking Status/Tobacco Use Comment F acility Apr 08, 2020 12:19 AM ORYX ADMIT TOBACCO SCREEN NO [facility] Nov 29, 2019 08:47 AM VA-TOBACCO FORMER USER [facility] Nov 29, 2019 08:47 AM VA-TOBACCO QUIT 15 YRS OR MORE [facility] Feb 02, 2014 07:53 PM QUIT TOBACCO >7 YEARS AGO [facility] Advance Directives: All historical and current Section Date Range: From patient's date of to the date document was created. This section includes ALL of a patient's completed or amended [place] Advance and Rescinded Directives. The entries below indicate that a directive exists for the patient, but an actual copy is not included with this document. The data comes from all [facility]. Date Advance Directives Provider Source Feb 05, 2014 ADVANCE DIRECTIVE DISCUSSION JAILENE RODRIGUEZ [facility] Encounter Notes: All associated encounter notes This section contains the clinical notes associated to the Encounter. Date/Time Encounter Note(s) Provider Source Jul 20, 2023 12:00 AM NONVA CONSULT: LOCAL TITLE: COMMUNITY CARE-CONSULT RESULT NOTE [facility] STANDARD TITLE: NONVA CONSULT DATE OF NOTE: JUL 20, 2023 ENTRY DATE: AUG 06, 2023@14:53:51 AUTHOR: CINTHIA ZAZUETA EXP COSIGNER: URGENCY: STATUS: COMPLETED VistA Imaging - Scanned Document REHAB PT [facility] [id number] TREATMENT NOTE TRACE DOUGLAS #[id number] /alexandra/ CINTHIA ZAZUETA HEALTH ADMINSISTRATION OFFICER Signed: 08/06/2023 14:53 CINTHIA ZAZUETA [facility]
--- OUTSIDE RECORDS SUMMARY | 2024-05-25 14:38 | XMS_ITS ---
Author Name [facility] [place] Address [address] [place] [address] Care Team Providers Care Braider Operator Name Role Phone TRACE DOUGLAS Primary [...] PART A Jul 15, 2014 PART A [id number] [id number] Ronda COMBS PATIENT MEDICARE (WNR) MEDICARE (M) PART B Jul 15, 2014 PART B [id number] 37A [phone] Ronda COMBS PATIENT Selected Encounter This section includes the information on record at [place] for the Encounter. Date/Time Encounter Type Encounter Description Reason Pro vider Source Dec 03, 2023 01:39 PM Outpatient Encounter ADMIN PAT ACTIVTIES (MASNONCT) [...] 2023 10:00 AM AMBULATORY - SURGERY [facility] Jan 07, 2024 11:30 AM AMBULATORY - MEDICINE [facility] Feb 04, 2024 09:30 AM AMBULATORY - SURGERY [facility] Feb 04, 2024 01:30 PM AMBULATORY - SURGERY [facility] Apr 04, 2024 09:30 AM AMBULATORY - MEDICINE [facility] Active, Pending, and Scheduled Orders This section [...] METABOLIC PANEL GREEN LI/HEP BLD/PLAS PLASMA SP [facility] October 20, 2023 12:00 AM Laboratory - Chemi stry Order LIPID PANEL (STL) GREEN LI/HEP BLD/PLAS PLASMA SP ONCE [facility] October 20, 2023 12:00 AM Laboratory - Chemi stry Order CBC BLOOD SP [facility] October 20, 2023 12:00 AM Laboratory - Chemi stry Order MICRAL/CREAT PROFILE (STL) URINE SP [facility] October 20, 2023 12:00 AM Laboratory - Chemi stry Order HGA1C BLOOD SP [facility] October 20, 2023 12:00 AM Laboratory - Chemi stry Order PROST. SPECIFIC AG.(PB-STL) GOLD/RED SST SERUM SP [facility] October 20, 2023 12:00 AM Laboratory - Chemi stry Order TSH W/ REFLEX FT4 (STL) GREEN LI/HEP BLD/PLAS PLASMA SP [facility] November 01, 2023 12:00 AM Laboratory - Chemi stry Order TSH (MA-PB) GOLD/RED SST SERUM SP [facility] Social History: Smoking Status (Most current) and [...] 06:38 PM ORYX ADMIT TOBACCO SCREEN NO [facility] Tobacco Use History This section includes a history of the smoking, or tobacco-related health factors, that were collected on or before the date of the Encounter. The data comes from the [place] facility where the Encounter took place. Date/Time Smoking Status/Tobacco Use Comment F acility Apr 08, 2020 12:19 AM ORYX ADMIT TOBACCO SCREEN NO [facility] Nov 29, 2019 08:47 AM VA-TOBACCO FORMER USER [facility] Nov 29, 2019 08:47 AM VA-TOBACCO QUIT 15 YRS OR MORE [facility] Feb 02, 2014 07:53 PM QUIT TOBACCO >7 YEARS AGO [facility] Advance Directives: All historical and current Section Date Range: From patient's date of to the date document was created. This section includes ALL of a patient's completed or amended [place] Advance and Rescinded Directives. The entries below indicate that a directive exists for the patient, but an actual copy is not included with this document. The data comes from all [place] facilities. Date Advance Directives Provider Source Feb 05, 2014 ADVANCE DIRECTIVE DISCUSSION JAILENE RODRIGUEZ [facility] Encounter Notes: All associated encounter notes This section contains the clinical notes associated to the Encounter. Date/Time Encounter Note(s) Provider Source Dec 03, 2023 01:39 PM ADMINISTRATIVE NOT E: LOCAL TITLE: CONTACT NOTE STL STANDARD TITLE: ADMINISTRATIVE NOTE DATE OF NOTE: DEC 03, 2023@13:39 ENTRY DATE: DEC 03, 2023@13:39:37 AUTHOR: IFEOMA MESSER EXP COSIGNER: URGENCY: STATUS: COMPLETED CONTACT NOTE STL Has ADDENDA Veterans name and last 4 were used to verify identity Verified Veterans telephone #/Updated telephone number in the system REASON FOR CALL: Other: Reason for call: IS REQUESTING TRAVEL FOR APPT ON 12/07 @ 11AM /alexandra/ IFEOMA MESSER ADVANCED IUSS MASTER ANALYST Signed: 12/03/2023 13:40 Receipt Acknowledged By: 12/03/2023 16:10 /alexandra/ MONICA HARLEY RN, BSN REGISTERED NURSE 12/03/2023 ADDENDUM STATUS: COMPLETED Transportation requested via the [employer]. /alexandra/ MONICA HARLEY RN, BSN REGISTERED NURSE Signed: 12/03/2023 16:10 IFEOMA MESSER [facility]
--- OUTSIDE RECORDS SUMMARY | 2024-05-25 14:38 | XMS_ITS | Encounter Summary ---
Author Name [place] Address [address] [place] [address] Care Team Providers Care Cable Television Technician Name Role Phone TRACE DOUGLAS Primary [...] PART A Jul 15, 2014 PART A [id number] 37A Ronda COMBS PATIENT MEDICARE (WNR) MEDICARE (M) PART B Jul 15, 2014 PART B [id number] [id number] Ronda COMBS PATIENT Selected Encounter This [...] DIRECTIVE DISCUSSION JAILENE RODRIGUEZ [facility]
--- OUTSIDE RECORDS SUMMARY | 2024-05-25 14:38 | XMS_ITS | Encounter Summary ---
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 Date/Time Encounter Type Encounter Description Reason Provider Source Jun 18, 2023 08:45 AM OFFICE O/P EST LOW 20 MIN TELEPHONE PRIMARY CARE ICD-10-CM M54.59 Other low back pain INEZ MARTINEZ IHRonda Encounter Template Text not used by [place] Assessments - Encounter Diagnoses This section includes the primary and secondary diagnoses documented for the Encounter. Date/Time Primary/Secondary Diagnosis Diagnosis Name Provider Source Jun 18, 2023 08:45 AM PRIMARY Other low back pain INEZ MARTINEZ [facility] Jun 18, 2023 08:45 AM SECONDARY Hypothyroidism, unspecified STELLAINEZ [facility] Plan of Treatment: Future Appointments (+ 6 months) and Future Tests (+/- 45 days) The Plan of Treatment section includes future care activities for the patient [facility] [place] [facility] This section includes future appointments and future orders which are active, pending or scheduled. Future Appointments This section includes appointments that were scheduled to occur 6 months from the date of the Encounter, up to a maximum of 20 appointments. The data comes from all [facility]. Appointment Date/Time Appointment Type Appointme nt Facility Name Jul 22, 2023 09:45 AM AMBULATORY - REHAB MEDICIN E [facility] Aug 26, 2023 02:00 PM AMBULATORY - MEDICINE [facility] Dec 14, 2023 10:00 AM AMBULATORY - SURGERY [facility] Active, Pending, and Scheduled Orders This section includes a listing of several types of active, pending, and scheduled orders, including clinic medications orders, diagnostic test orders, procedure orders and consult orders; where the start date of the order is 45 days before the date of the Encounter or 45 days after the date of theEncounter. The data comes from all [facility]. Test Date/Time Test Type Test Details Facility Name May 20, 2023 12:00 AM Laboratory - Chemistry Order TSH (MA-PB-STL) GOLD/RED SST SERUM SP [facility] May 20, 2023 12:00 AM Laboratory - Chemistry Order HGA1C BLOOD SP [facility] May 20, 2023 12:00 AM Laboratory - Chemistry Order MICRAL/CREAT PROFILE (STL) URINE YELLOW SP [facility] May 20, 2023 12:00 AM Laboratory - Chemistry Order METHADONE PANEL (STL) URINE COLLECTION TUBE SP [facility] Jun 18, 2023 12:00 AM Laboratory - Chemistry Order LIPID PANEL (STL) GREEN LI/HEP BLD/PLAS PLASMA SP [facility] Jun 18, 2023 12:00 AM Laboratory - Chemistry Order COMPREHENSIVE METABOLIC PANEL GREEN LI/HEP BLD/PLAS PLASMA SP [facility] Jun 18, 2023 12:00 AM Laboratory - Chemistry Order CBC BLOOD SP [facility] Jun 18, 2023 12:00 AM Laboratory - Chemistry Order TSH (MA-PB-STL) GOLD/RED SST SERUM SP [facility] Jun 18, 2023 12:00 AM Laboratory - Chemistry Order PROST. SPECIFIC AG.(PB-STL) GOLD/RED SST SERUM SP [facility] Jun 18, 2023 12:00 AM Laboratory - Chemistry Order URINALYSIS (STL) URINE SP [facility] Jun 18, 2023 12:00 AM Laboratory - Chemistry Order HGA1C BLOOD [facility] Social History: Smoking Status (Most current) and Tobacco Use (All prior to encounter date) This section includes the most current, and the historical, smoking and tobacco- related health factors from the [place] facility where the Encounter took place. Current Smoking Status This section includes the most current smoking, or tobacco-related health factor, from the [place] facility where the Encounter took place. Date/Time Current Smoking Status Comment [facility] Apr 15, 2023 11:30 AM [place]-TOBACCO FORMER USER [facility] Tobacco Use History This section includes a history of the smoking, or tobacco-related health factors, that were collected on or before the date of the Encounter. The data comes from the [place] facility where the Encounter took place. Date/Time Smoking Status/Tobacco Use Comment Fitz bennett Apr 15, 2023 11:30 AM [place]-TOBACCO QUIT 15 YRS OR MORE [facility] Dec 31, 2021 10:30 AM VA-TOBACCO FORMER USER [facility] Dec 31, 2021 10:30 AM VA-TOBACCO QUIT 15 YRS OR MORE [facility] Dec 02, 2020 01:00 PM VA-TOBACCO FORMER USER [facility] Dec 02, 2020 01:00 PM VA-TOBACCO QUIT 15 YRS OR MORE [facility] Jul 25, 2018 09:15 AM VA-TOBACCO FORMER USER [facility] Jul 25, 2018 09:15 AM VA-TOBACCO QUIT 15 YRS OR MORE [facility] Jul 19, 2017 11:02 AM QUIT TOBACCO >7 YEARS AGO [facility] Mar 16, 2017 11:32 AM QUIT TOBACCO >7 YEARS AGO [facility] Dec 08, 2016 01:28 PM LIFETIME NON-USER OF TOBACCO [facility] Feb 06, 2016 01:06 PM LIFETIME NON-USER OF TOBACCO [facility] Jan 07, 2015 09:04 AM QUIT TOBACCO >7 YEARS AGO [facility] Feb 06, 2014 02:33 PM LIFETIME NON-USER OF TOBACCO [facility] Sep 26, 2013 10:45 AM QUIT TOBACCO >7 YEARS AGO [facility] Sep 20, 2012 02:07 PM QUIT TOBACCO >7 YEARS AGO [facility] Advance Directives: All historical and current Section Date Range: From patient's date of to the date document was created. This section includes ALL of a patient's completed or amended [place] Advance and Rescinded Directives. The entries below indicate that a directive exists for the patient, but an actual copy is not included with this document. The data comes from all [place] facilities. Date Advance Directives Provider Source Feb 05, 2014 ADVANCE DIRECTIVE DISCUSSION JAILENE RODRIGUEZ [facility] Encounter Notes: All associated encounter notes This section contains the clinical notes associated to the Encounter. Date/Time Encounter Note(s) Provider Source Jun 18, 2023 09:03 AM PRIMARY CARE NOTE: LOCAL TITLE: PRIMARY CARE PROVIDER ESTABLISHED VISIT [facility] STANDARD TITLE: PRIMARY CARE NOTE DATE OF NOTE: JUN 18, 2023@09:03 ENTRY DATE: JUN 18, 2023@09:05:36 AUTHOR: INEZ MARTINEZ EXP COSIGNER: URGENCY: STATUS: COMPLETED ESTABLISHED PATIENT [id number]: REASON FOR VISIT/CHIEF COMPLAINT: f/u HPI: mr Ceja is called for a phone visit. he has NOT had his tsh levels checked since feb. he says he had extra levothyroxine at home but has nothad ANY refills in over a year. he saw pain managment and declined PT but today said he would consider it if it was local. PMH 1) Back pain, slipped disc from L4-5. Saw Dr Hallman and received ultram. Had 2 epidural injections without relief. pain stable. did whole health consult and only went to a one time. did not do PT as he said it was too far and did not qualify for community care. recent nsg appt and work up states L-CT shows L5/S1 osteophyte growth to lateral recess bilaterally. Patient would need L4-S1 laminectomy and L4/5 Rt discectomy as a last resort after weight loss. needs BMI to be 40 for surgery. pt not actively trying to lose weight. 2) MEGHNA - uses CPAP every night, tested at [facility]. Using full face mask. received CPAP 9-15 cm H2O. compliant, per pt. 3) Psoriasis - uses clobetasol and fluocinide. Has come back since he gained weight. has ointments 4) skin Cancer - pt unclear which type, but had several removed from face, has been seen by derm in past 5) restless leg syndrome - on ropinirole and working well. 6) seborrheic dermatitis: cream per derm 8) DM: started on metformin SA due to GI side effects. on glipizide. 9) hypothyroidism: started on previous dose of levothyroxine and over corrected. did not check levels in December. did not check levels in March. takes meds but not refilling in timely manner. says he is taking meds daily but not renewing appropriately. do not see active script for it. he keeps saying he is taking it daily. no active script in over a year!!! 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 02/2016 did not show stenosis bilaterally. 12) hyperlipidemia - atorvastatin and pravastatin started but stated it caused cramps. Using crestor, last filled 01/26/22 for 30 day supply. Health maintenance: PSA: 0.168 02/2022 QUENTIN: declined 09/2013 colonoscopy: 03/2017, rec f/u 2019, overdue. occult blood: DM: HGB A1c - 6.0% (12/2021) eye exam 10/2017 zoster - 10/2012 shingrix 04/03/2021 12/02/2020 pneumovac - tetanus - PSHx: skin ca removal from face FHx: mother from bone CA, sister with breast CA Soc Hx: lives with in a house. 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 hx of smoking up to 1 ppd for 16 years and quit 1979. No ETOH. ROS constitutional: no F/C/S vision/hearing: no hearing aids, +glasses ENT: no dentures cardio: no CP, no SOB Pulm: no cough, no congestion GI: no N/V, no diarrhea or constipation : no hematuria, no dysuria M/S: + back/arthritic pain neuro: no hx of CVA Endo: no diabetes. thyroid disease in past ALLERGIES: METFORMIN, LIPITOR, PRAVASTATIN ALLERGY REVIEW: Allergy list reviewed and remains current. MEDICATION RECONCILIATION: I have reviewed the patient's medication list with the patient and/or his/her care-repairer finished metal. Handwritten corrections, additions and/or deletions were made to the list. Corrected Outpatient Medication List was provided to the patient/caregiver. Active Outpatient Medications (including Supplies): Active Outpatient Medications Status 1) A & D OINT APPLY LIGHTLY TO AFFECTED AREA(S) ONCE A ACTIVE DAY NEEDED FOR SKIN IRRITATION 2) AMLODIPINE BESYLATE 2.5MG TAB TAKE THREE TABLETS BY ACTIVE MOUTH ONCE A DAY FOR HEART/BLOOD PRESSURE 3) CHLORHEXIDINE GLUCONATE 4% TOP LIQUID APPLY MODERATE ACTIVE AMOUNT TO AFFECTED AREA(S) ONCE A DAY FOR SKIN DISINFECTION FOR TOPICAL USE ONLY. AVOID CONTACT WITH EYES. 4) DULOXETINE HCL 30MG EC CAP TAKE ONE CAPSULE BY MOUTH ACTIVE ONCE A DAY FOR MUSCULOSKELETAL PAIN DO NOT ABRUPTLY DISCONTINUE MEDICATION. 5) DULOXETINE HCL 60MG EC CAP TAKE ONE CAPSULE BY MOUTH ACTIVE ONCE A DAY FOR MUSCULOSKELETAL PAIN DO NOT ABRUPTLY DISCONTINUE MEDICATION. 6) GABAPENTIN 300MG CAP TAKE THREE CAPSULES BY MOUTH ACTIVE THREE TIMES A DAY FOR PAIN 7) GLIPIZIDE 5MG TAB TAKE ONE TABLET BY MOUTH TWO TIMES ACTIVE A DAY BEFORE MEALS FOR DIABETES. TAKE 30 MINUTES BEFORE EATING. 8) HYDROCHLOROTHIAZIDE 25MG TAB TAKE ONE TABLET BY MOUTH ACTIVE ONCE A DAY FOR BLOOD PRESSURE 9) HYDROPHILIC (EQV EUCERIN) TOP CREAM APPLY LIBERALLY ACTIVE TO AFFECTED AREA(S) ONCE A DAY (EXTERNAL USE ONLY) DRY BETWEEN TOES AFTER APPLYING. 10) LIDOCAINE 5% PATCH APPLY 1 PATCH TO SKIN SITE ONCE A ACTIVE DAY APPLY PATCH AND PRESS FIRMLY FOR 10-15 SECONDS. KEEP ON FOR 12 HOURS THEN REMOVE PATCH FOR 12 HOURS. APPLY TO LOW BACK 11) MELOXICAM 15MG TAB TAKE ONE TABLET BY MOUTH ONCE A ACTIVE (S) DAY WITH FOOD FOR PAIN 12) METFORMIN HCL 500MG 24HR SA TAB TAKE TWO TABLETS BY ACTIVE MOUTH ONCE A DAY WITH EVENING MEAL 13) OMEPRAZOLE 20MG EC CAP TAKE ONE CAPSULE BY MOUTH ACTIVE EVERY MORNING BEFORE A MEAL TO LOWER STOMACH ACID. TAKE 30 MINUTES PRIOR TO FOOD. 14) OXYBUTYNIN CHLORIDE 10MG SA TAB TAKE ONE TABLET BY ACTIVE MOUTH ONCE A DAY FOR BLADDER. SWALLOW WHOLE, DO NOT CRUSH OR CHEW. 15) ROPINIROLE HCL 2MG TAB TAKE ONE TABLET BY MOUTH AT ACTIVE (S) BEDTIME 16) ROSUVASTATIN CA 20MG TAB TAKE ONE-HALF TABLET BY ACTIVE MOUTH EVERY EVENING TO LOWER CHOLESTEROL (REPORT ANY MUSCLE PAIN OR WEAKNESS) Active Non-VA Medications Status 1) Non-VA CETIRIZINE HCL 10MG TAB 10MG BY MOUTH ONCE A ACTIVE DAY 17 Total Medications a/p 1) hypothyrodism -needs to take meds -needs to do labs 2) back pain -will do PT if local. responded that I could not guarantee it. 3) noncompliance rtc 2 months time 15 mins PREVENTION & SCREENING: ALCOHOL: Clinical Reminder not due now or within a month BLOOD PRESSURE: Clinical Reminder not due now or within a month HEMOGLOBIN A1C: Clinical Reminder not due now or within a month /alexandra/ Inez Martinez PA-C PA-C Signed: 06/18/2023 09:18 INEZ MARTINEZ [facility]
--- OUTSIDE RECORDS SUMMARY | 2024-05-25 14:38 | XMS_ITS | Encounter Summary ---
Author Name [facility] [place] [facility] [place] [facility] [place] Address [address] [place] [address] Care Team Providers Care Inpatient Care Manager Rn Name Role Phone TRACE DOUGLAS Primary Care [...] PART B Jul 15, 2014 PART B [id number] [phone] Ronda COMBS PATIENT MEDICARE (WNR) MEDICARE (M) PART A Jul 15, 2014 PART A [id number] Ronda COMBS PATIENT Selected Encounter This section includes the information on record at [place] for the Encounter. Date/Time Encounter Type Encounter Description Reason Provider Source Jun 11, 2023 10:30 AM OFFICE O/P [place] 60-74 [facility] ICD-10-CM M47.26 Other spondylosis with radiculopathy, lumbar region MAEGAN PENA Encounter Template Text not used by [place] Assessments - Encounter Diagnoses This section includes the primary and secondary diagnoses documented for the Encounter. Date/Time Primary/Secondary Diagnosis Diagnosis Name Provider Source Jun 11, 2023 11:36 AM PRIMARY Other spondylosis with radiculopathy, lumbar region MAEGAN PNEA [facility] Jun 11, 2023 11:36 AM SECONDARY Fall (on) (from) other stairs and steps, initial encounter MAEGAN PENA [facility] Jun 11, 2023 11:36 AM SECONDARY Morbid (severe) obesity due to excess calories MAEGAN PENA [facility] Plan of Treatment: Future Appointments (+ 6 months) and Future Tests (+/- 45 days) The Plan of Treatment section includes future care activities for the patient from all [facility]. This section includes future appointments and future orders which are active, pending or scheduled. Future Appointments This section includes appointments that were scheduled to occur 6 months from the date of the Encounter, up to a maximum of 20 appointments. The data comes from all [facility]. Appointment Date/Time Appointment Type Appointme nt Facility Name Jun 18, 2023 08:45 AM AMBULATORY - MEDICINE [facility] Jul 22, 2023 09:45 AM AMBULATORY - REHAB MEDICIN E [facility] Aug 26, 2023 02:00 PM AMBULATORY - MEDICINE [facility] Active, Pending, and Scheduled Orders This section includes a listing of several types of active, pending, and scheduled orders, including clinic medications orders, diagnostic test orders, procedure orders and consult orders; where the start date of the order is 45 days before the date of the Encounter or 45 days after the date of theEncounter. The data comes from all [facility]. Test Date/Time Test Type Test Details Facility Name May 20, 2023 12:00 AM Laboratory - Chemistry Order TSH (MA-PB-STL) GOLD/RED SST SERUM SP [facility] May 20, 2023 12:00 AM Laboratory - Chemistry Order HGA1C BLOOD SP [facility] May 20, 2023 12:00 AM Laboratory - Chemistry Order MICRAL/CREAT PROFILE (STL) URINE YELLOW SP [facility] May 20, 2023 12:00 AM Laboratory - Chemistry Order METHADONE PANEL (STL) URINE COLLECTION TUBE [facility] Jun 18, 2023 12:00 AM Laboratory - Chemistry Order COMPREHENSIVE METABOLIC PANEL GREEN LI/HEP BLD/PLAS [facility] Jun 18, 2023 12:00 AM Laboratory - Chemistry Order LIPID PANEL (STL) GREEN LI/HEP BLD/PLAS [facility] Jun 18, 2023 12:00 AM Laboratory - Chemistry Order TSH (MA-PB-STL) GOLD/RED SST [facility] Jun 18, 2023 12:00 AM Laboratory - Chemistry Order CBC BLOOD [facility] Jun 18, 2023 12:00 AM Laboratory - Chemistry Order PROST. SPECIFIC AG.(PB-STL) GOLD/RED SST [facility]UM [facility] Jun 18, 2023 12:00 AM Laboratory - Chemistry Order HGA1C BLOOD [facility] Jun 18, 2023 12:00 AM Laboratory - Chemistry Order URINALYSIS (STL) URINE [facility] Vital Signs: All taken on the encounter date This section contains inpatient and outpatient Vital Signs collected on the date of the Encounter. Date/Time Temperature Pulse Blood Pressure Respiratory Rate SP02 Pain Height Weight Body Mass Index Source Jun 11, 2023 10:40 AM 80 /min 126/69 mm[Hg] 18 /min 96 % 9 [facility] Social History: Smoking Status (Most current) and [...] Facil ity Apr 15, 2023 11:30 AM [place]-TOBACCO FORMER USER [facility] Tobacco Use History This section includes a history of the smoking, or tobacco-related health factors, that were collected on or before the date of the Encounter. The data comes from the [place] facility where the Encounter took place. Date/Time Smoking Status/Tobacco Use Comment F acility Apr 15, 2023 11:30 AM [place]-TOBACCO QUIT 15 YRS OR MORE [facility] Dec 31, 2021 10:30 AM [place]-TOBACCO FORMER USER [facility] Dec 31, 2021 10:30 AM VA-TOBACCO QUIT 15 YRS OR MORE [facility] Dec 02, 2020 01:00 PM VA-TOBACCO FORMER USER [facility] Dec 02, 2020 01:00 PM VA-TOBACCO QUIT 15 YRS OR MORE [facility] Jul 25, 2018 09:15 AM VA-TOBACCO FORMER USER [facility] Jul 25, 2018 09:15 AM VA-TOBACCO QUIT 15 YRS OR MORE [facility] Jul 19, 2017 11:02 AM QUIT TOBACCO >7 YEARS AGO [facility] Mar 16, 2017 11:32 AM QUIT TOBACCO >7 YEARS AGO [facility] Dec 08, 2016 01:28 PM LIFETIME NON-USER OF TOBACCO [facility] Feb 06, 2016 01:06 PM LIFETIME NON-USER OF TOBACCO [facility] Jan 07, 2015 09:04 AM QUIT TOBACCO >7 YEARS AGO [facility] Feb 06, 2014 02:33 PM LIFETIME NON-USER OF TOBACCO [facility] Sep 26, 2013 10:45 AM QUIT TOBACCO >7 YEARS AGO [facility] Sep 20, 2012 02:07 PM QUIT TOBACCO >7 YEARS AGO [facility] Advance Directives: All historical [...] 05, 2014 ADVANCE DIRECTIVE DISCUSSION JAILENE RODRIGUEZ [facility] Encounter Notes: All associated encounter notes This section contains the clinical notes associated to the Encounter. Date/Time Encounter Note(s) Provider Source Jun 11, 2023 10:33 AM PAIN CONSULT: LOCAL TITLE: PAIN REHAB CTR CLINIC CONSULT [facility] STANDARD TITLE: PAIN CONSULT DATE OF NOTE: JUN 11, 2023@10:33 ENTRY DATE: JUN 11, 2023@10:33:41 AUTHOR: MAEGAN PENA COSIGNER: URGENCY: STATUS: COMPLETED PAIN REHAB CTR CLINIC CONSULT ST Has [facility]ENDA Pain Management Consult Reply Referring provider: TRACE DOUGLAS Patient identifiers: full name and birthdate CHIEF COMPLAINT/REASON FOR REFERRAL: back pain HISTORY OF PRESENT ILLNESS: Patient is a 72 yo M with a PMHx significant for HTN, DM, hypothyroidism, OA, LBP, MEGHNA that presents to our clinic with low back pain. Pt was previously followed by Jaylene Conley and Dr Greg trujillo in 2019 and has trialed LESI. At that time he had 2-2.5 months of relief per chart review. Pt does recall improvement of his symptoms. Pt has hx of chronic lbp. The pain is located to the middle of the low back with radiation down the right anterior thigh to the knee, constant. +intermittent numbness/tingling. Denies left sided symptoms. On avg the pain is an 8/10. Better with injections, resting, sitting, medications. Worse with prolonged standing, cold wet weather. +weakness in the LEs, especially the right leg. +rare bladder incontinence when rushing to the bathroom - is on oxybutynin. Pt does report he had a minor fall this morning when he slipped on the steps outside his house. Denies any injury or worsening pain. Feels a little sore in his arms from bracing himself. Denies hitting his head. He has had one additional fall this year w/o injury. States he knows how to fall with a soft landing . Medications: recently was started on duloxetine which helps with the pain a little bit - denies side effects. Gabapentin 900 mg BID also seems to help. Also takes meloxicam which helps. Tramadol previously was helping. Physical Therapy: did a year ago, tries to do some of his HEP. EMG/Imaging: CT L spine 2019 FINDINGS: There is a persistent S1-S2 disc space present. Stable appearing grade 1 anterolistheses of L4 relative to L3 and L5 relative to S1 are observed. Prominent discogenic sclerosis with slightly more surrounding endplate irregularity and cystlike lucencies with persistent moderate disc space narrowing exists at L4-5. Less prominent findings are incompletely visualized at T9-10. Vacuum disc phenomena remain at T11-12, L4-5 and at L5-S1 with mild to moderate narrowing posteriorly of the L5-S1 disc space again observed. No acute fractures are observed. Severe multilevel facet arthrosis exists, particularly at the L4-S1 levels. 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 The visualized portions of the sacrum and sacroiliac joints appear normal. No paraspinal soft tissue lesions are observed. There is a moderately large diffuse annular posterior disc bulge at L5-S1 which is partially uncovered by the L5 spondylolisthesis. This combines with bilateral facet and ligamentous hypertrophy to produce moderate central spinal stenosis and definite impingement of the exiting right L5 nerve root with left neural foraminal stenosis without definite root impingement ipsilaterally. In addition, a mild to moderate central spinal stenosis occurs at L4-5 by the combination of a smaller posterior disc-osteophyte complex and the bilateral facet and ligamentous hypertrophy. No definite impingement of the bilateral exiting L4 nerve roots exists. These findings appear unchanged from the MRI study. A moderate diffuse annular posterior disc bulge occurs at L2-3. There is motion artifact present at this level making definite evaluation of the thecal sac somewhat difficult. However, I suspect that there is mild central spinal stenosis present. The neural foramina appear patent. A small annular disc bulge at L1-2 is present. 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 Neg except as listed in HPI and below. 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 5) GABAPENTIN 300MG CAP TAKE THREE CAPSULES BY MOUTH ACTIVE THREE TIMES A DAY FOR PAIN 6) GLIPIZIDE 5MG TAB TAKE ONE TABLET BY MOUTH TWO TIMES ACTIVE A DAY BEFORE MEALS FOR DIABETES. TAKE 30 MINUTES BEFORE EATING. 7) HYDROCHLOROTHIAZIDE 25MG TAB TAKE ONE TABLET BY MOUTH ACTIVE ONCE A DAY FOR BLOOD PRESSURE 8) HYDROPHILIC (EQV EUCERIN) TOP CREAM APPLY LIBERALLY ACTIVE TO AFFECTED AREA(S) ONCE A DAY (EXTERNAL USE ONLY) DRY BETWEEN TOES AFTER APPLYING. 9) MELOXICAM 15MG TAB TAKE ONE TABLET BY MOUTH ONCE A ACTIVE (S) DAY WITH FOOD FOR PAIN 10) METFORMIN HCL 500MG 24HR SA TAB TAKE TWO TABLETS BY ACTIVE MOUTH ONCE A DAY WITH EVENING MEAL 11) OMEPRAZOLE 20MG EC CAP TAKE ONE CAPSULE BY MOUTH ACTIVE EVERY MORNING BEFORE A MEAL TO LOWER STOMACH ACID. TAKE 30 MINUTES PRIOR TO FOOD. 12) OXYBUTYNIN CHLORIDE 10MG SA TAB TAKE ONE TABLET BY ACTIVE MOUTH ONCE A DAY FOR BLADDER. SWALLOW WHOLE, DO NOT CRUSH OR CHEW. 13) ROPINIROLE HCL 2MG TAB TAKE ONE TABLET BY MOUTH AT ACTIVE (S) BEDTIME 14) ROSUVASTATIN CA 20MG TAB TAKE ONE-HALF TABLET BY ACTIVE MOUTH EVERY EVENING TO LOWER CHOLESTEROL (REPORT ANY MUSCLE PAIN OR WEAKNESS) Active Non-VA Medications Status 1) Non-VA CETIRIZINE HCL 10MG TAB 10MG BY MOUTH ONCE A ACTIVE DAY 15 Total Medications PHYSICAL EXAM: VSD - Detailed Vitals Date Vital Measurement Qualifiers 06/11/2023 10:40 Pulse 80 Respir 18 BP 126/69 Pain 9 POx (L/Min)(%) 96 04/15/2023 11:23 Temp F (C) 98.8 (37.1) Wt lbs (kg)[BMI] 289.7 (131.41)[51*] General: awake, alert, in NAD CV: extremities well perfused Lungs: nonlabored breathing Mood/Affect: normal SKIN: no erythema or rash Back exam Inspection: Normal Spinal alignment Palpation: No Spinous process tenderness No Paraspinal muscle spasm No tenderness to the b/l SIJ or piriformis. ROM: functional R L Straight leg raise neg ?pos Slump Test neg neg MELITA Test neg FADIR test neg LE strength 4/5 strength in BLE Sensation: intact to LT in BLE Gait: able to walk short distances with a cane RADIOLOGY/DIAGNOSTICS: as above ASSESSMENT/PLAN: Patient is a 72 yo M presenting with chronic LBP. Lumbar spondylosis with radiculopathy Mechanical Fall Morbid obesity Pt presents today with chronic low back pain. He did sustain a fall this morning. Denies worsening back pain. No bony spinal tenderness on exam. Pt to monitor symptoms and go to the ER if he experiences any worsening pain. As for his chronic lbp, discussed different treatment options including therapy, medications, neuroaxial procedures. In terms of his history of taking tramadol and his 's narcotics, we did discuss that opioids are not recommended for chronic low back pain. Pt recently was started on cymbalta with some improvement. Recommend increase to [address] order. Also will trial lidoderm to the low back. Pt is also interested in repeat KAYLA as he had good relief in the past. Will obtain updated LS XR and MRI L spine. Will review once complete and likely plan for repeat L3-4 LESI. Also offered a short course of PT to refresh his HEP. Pt would like to trial handouts he has from his prior PT sessions. He will notify the clinic if he is interested in a formal consult. Pt would benefit from regular exercise and weight loss. -Imaging plans: LS XR and MRI L spine -Return to clinic: after MRI L spine is complete Patient educated, agrees and understands the assessment and plan. A total of 60 minutes was spent on the date of this encounter including but not limited to face to face time with the patient, chart review, care planning with/for the patient and documentation in the medical record. Suicide Screen: C-SSRS Screening [place]-Suicide Severity Rating Scale (C-SSRS Screener) 1. Over the past month, have you wished you were or wished you could go to sleep and not wake up? No 2. Over the past month, have you had any actual thoughts of killing yourself? No 3. Over the past month, have you been thinking about how you might do this? Response not required due to responses to other questions. 4. Over the past month, have you had these thoughts and had some intention of acting on them? Response not required due to responses to other questions. 5. Over the past month, have you started to work out or worked out the details of how to kill yourself? Response not required due to responses to other questions. 6. If yes, at any time in the past month did you intend to carry out this plan? Response not required due to responses to other questions. 7. In your lifetime, have you ever done anything, started to do anything, or prepared to do anything to end your life (for example, collected pills, obtained a gun, gave away valuables, went to the roof but didn't jump)? No 8. If YES, was this within the past 3 months? Response not required due to responses to other questions. /alexandra/ MAEGAN PENA Pain Mgmt Physician Signed: 06/11/2023 11:36 06/11/2023 ADDENDUM STATUS: COMPLETED Correction to physical exam: L R Straight leg raise neg ?pos Slump Test neg neg MELITA Test neg FADIR test neg /es/ MAEGAN PENA Pain Mgmt Physician Signed: 06/11/2023 11:43 MAEGAN PENA [facility]
--- OUTSIDE RECORDS SUMMARY | 2024-05-25 14:38 | XMS_ITS ---
Author Name [facility] [place] Address [address] [place] [address] Care Team Providers Care Lane Attendant Name Role Phone TRACE DOUGLAS Primary Care [...] Policy Pradhan's Name Patient's Relationship to Policy Prahdan MEDICARE (WNR) MEDICARE (M) PART A Jul 15, 2014 PART A [id number] Ronda COMBS PATIENT MEDICARE (WNR) MEDICARE (M) PART B Jul 15, 2014 PART B [id number] Ronda COMBS PATIENT Selected Encounter This section includes the information on record at [place] for the Encounter. Date/Time Encounter Type Encounter Description Reason Provider Source Jun 11, 2023 11:30 AM IMG RTA JELANICCheryl/MERLE DS STAFF EYE TELE SCREENING ICD-10-CM Z13.5 Encounter for screening for eye and ear disorders SHUN HARDY Encounter Template Text not used by [place] Assessments - Encounter Diagnoses This section includes the primary and secondary diagnoses documented for the Encounter. Date/Time Primary/Secondary Diagnosis Diagnosis Name Provider Source Jun 11, 2023 11:30 AM PRIMARY Encounter for screening for eye and ear disorders JEWELSHUN MARTINEZ ÁNGEL [facility] Jun 11, 2023 11:30 AM SECONDARY Type 2 diabetes mellitus without complications ANTONYSHUN ÁNGEL [facility] Plan of Treatment: Future Appointments (+ 6 months) and Future Tests (+/- 45 days) The Plan of Treatment section includes future care activities for the patient from all [place] [facility]. This section includes future appointments and future orders which are active, pending or scheduled. Future Appointments This section includes appointments that were scheduled to occur 6 months from the date of the Encounter, up to a maximum of 20 appointments. The data comes from all [facility]. Appointment Date/Time Appointment Type Appointme nt Facility Name Jun 18, 2023 08:45 AM AMBULATORY - MEDICINE [facility] Jul 22, 2023 09:45 AM AMBULATORY - REHAB MEDICIN [facility] Aug 26, 2023 02:00 PM AMBULATORY - MEDICINE [facility] Active, [...] of theEncounter. The data comes from all [facility]. Test Date/Time Test Type Test Details Facility Name May 20, 2023 12:00 AM Laboratory - Chemistry Order TSH (MA-PB-STL) GOLD/RED SST SERUM SP [facility] May 20, 2023 12:00 AM Laboratory - Chemistry Order HGA1C BLOOD SP [facility] May 20, 2023 12:00 AM Laboratory - Chemistry Order MICRAL/CREAT PROFILE (STL) URINE YELLOW SP [facility] May 20, 2023 12:00 AM Laboratory - Chemistry Order METHADONE PANEL (STL) URINE COLLECTION TUBE SP [facility] Jun 18, 2023 12:00 AM Laboratory - Chemistry Order COMPREHENSIVE METABOLIC PANEL GREEN LI/HEP BLD/PLAS PLASMA SP [facility] Jun 18, 2023 12:00 AM Laboratory - Chemistry Order LIPID PANEL (STL) GREEN LI/HEP BLD/PLAS PLASMA SP [facility] Jun 18, 2023 12:00 AM Laboratory - Chemistry Order CBC BLOOD SP [facility] Jun 18, 2023 12:00 AM Laboratory - Chemistry Order TSH (MA-PB-STL) GOLD/RED SST SERUM SP [facility] Jun 18, 2023 12:00 AM Laboratory - Chemistry Order PROST. SPECIFIC AG.(PB-STL) GOLD/RED SST SERUM SP [facility] Jun 18, 2023 12:00 AM Laboratory - Chemistry Order HGA1C BLOOD [facility] Jun 18, 2023 12:00 AM Laboratory - Chemistry Order URINALYSIS (STL) URINE SP [facility] Vital Signs: All taken on the encounter date This section contains inpatient and outpatient Vital Signs collected on the date of the Encounter. Date/Time Temperature Pulse Blood Pressure Respiratory Rate SP02 Pain Height Weight Body Mass Index Source Jun 11, 2023 10:40 AM 80 /min 126/69 mm[Hg] 18 /min 96 % 9 [facility] Social History: Smoking Status [...] Facil ity Apr 15, 2023 11:30 AM [place]-TOBACCO QUIT 15 YRS OR MORE [facility] Tobacco Use History This section includes a history of the smoking, or tobacco-related health factors, that were collected on or before the date of the Encounter. The data comes from the [place] facility where the Encounter took place. Date/Time Smoking Status/Tobacco Use Comment F acility Apr 15, 2023 11:30 AM [place]-TOBACCO QUIT 15 YRS OR MORE [facility] Dec 31, 2021 10:30 AM [place]-TOBACCO FORMER USER [facility] Dec 31, 2021 10:30 AM [place]-TOBACCO QUIT 15 YRS OR MORE [facility] Dec 02, 2020 01:00 PM VA-TOBACCO FORMER USER [facility] Dec 02, 2020 01:00 PM VA-TOBACCO QUIT 15 YRS OR MORE [facility] Jul 25, 2018 09:15 AM VA-TOBACCO FORMER USER [facility] Jul 25, 2018 09:15 AM VA-TOBACCO QUIT 15 YRS OR MORE [facility] Jul 19, 2017 11:02 AM QUIT TOBACCO >7 YEARS AGO [facility] Mar 16, 2017 11:32 AM QUIT TOBACCO >7 YEARS AGO [facility] Dec 08, 2016 01:28 PM LIFETIME NON-USER OF TOBACCO [facility] Feb 06, 2016 01:06 PM LIFETIME NON-USER OF TOBACCO [facility] Jan 07, 2015 09:04 AM QUIT TOBACCO >7 YEARS AGO [facility] Feb 06, 2014 02:33 PM LIFETIME NON-USER OF TOBACCO [facility] Sep 26, 2013 10:45 AM QUIT TOBACCO >7 YEARS AGO [facility] Sep 20, 2012 02:07 PM QUIT TOBACCO >7 YEARS AGO [facility] [...] 05, 2014 ADVANCE DIRECTIVE DISCUSSION JAILENE RODRIGUEZ [facility] Encounter Notes: All associated encounter notes This section contains the clinical notes associated to the Encounter. Date/Time Encounter Note(s) Provider Source Jun 11, 2023 11:41 AM OPTOMETRY CONSULT: LOCAL TITLE: TELE-EYE SCREENING CONSULT STANDARD TITLE: OPTOMETRY CONSULT DATE OF NOTE: JUN 11, 2023@11:41 ENTRY DATE: JUN 11, 2023@11:41:56 AUTHOR: RAYMOND HARDY EXP COSIGNER: URGENCY: STATUS: COMPLETED INITIAL note PATIENT DEMOGRAPHICS: Sex: MALE Date of : Jul Patient race: WHITE Patient ethnicity: NOT OR REASON FOR REQUEST: Tele-Eye Screening for patient at-risk for the following eye condition(s): Patient is diabetic and at risk for DIABETIC RETINOPATHY: Diabetes Diagnosis Information: Encounter Diagnosis: 04/15/2023@11:30 E11.65 (ICD-10-CM) Type 2 Diabetes Mellitus with Hyperglycemia rank: SECONDARY Prov. Narr. - Diabetes mellitus ([facility] [id number]) Type 2 Diabetic Patient Duration of diabetes (years): 6 or more years: 2012 Information obtained by: Self-Report CURRENT DIABETES THERAPY: Diet Comment: Patient states he controls his blood sugar with diet. History of diabetic eye treatment: None Patient is at risk for MACULAR DEGENERATION: Macular Degeneration Risk Factors Information: Reminder Term: VA-AMD RISK FACTORS Encounter Diagnosis: 06/11/2023@10:30 E66.01 (ICD-10-CM) Morbid (Severe) Obesity due to Excess Calories rank: SECONDARY Prov. Narr. - Morbid obesity ([facility]CT [id number]) Smoking Status: Former Patient is at risk for GLAUCOMA: Glaucoma Risk Factors Information: Encounter Diagnosis: 03/13/2014@10:00 365.01 (ICD-9-CM) Open Angle with Borderline Findings, low Risk rank: SECONDARY Prov. Narr. - Open angle with borderline findings (SNOMED CT [id number]) Patient reports personal history of glaucoma. Comment: Patient states that he was tested for Glaucoma before. Patient identity was verified with 2 separate identifiers prior to the beginning of visit: Yes Patient was informed that their information and images will be uploaded securely to the [place] computer system and sent to be remotely interpreted by a licensed [place] eye care provider. Findings/recommendations will be conveyed to the primary care provider who will (either directly or by designee) ensure results are communicated timely and follow up care is coordinated as necessary. Patient verbalized understanding of process and consents to proceed: Yes Last Retinal Evaluation: OPTOMETRY CLINIC LOCATION LIST [place] Date unknown: Grain Roaster verified that patient inquiry and record review was performed Method of retinal evaluation: [place] Retinal Imaging Information obtained by: Chart documentation Date of Next Eye Appointment: Place local data object for future eye exam appointments No future appointment scheduled: [place] desires eye care through the [place] LABS/VITALS: [facility] - Lab Tests Selected Collection DT Specimen Test Name Result Units Ref Range 03/01/2023 09:44 BLOOD HGA1C 6.4 H % 4.0 - 6.0 10/02/2022 11:04 BLOOD HGA1C 6.2 H % 4.0 - 6.0 03/11/2022 11:52 BLOOD HGA1C 5.9 % 4.0 - 6.0 HgbA1c range: 5.9 Blood Pressure: 126/69 (06/11/2023 10:40) INTRAOCULAR PRESSURE (IOP) SCREENING: IOP measured by attic blower during eye screening Date/Time: May Device Used: Rebound tonometer (iCare) Right Eye: IOP= 10 Left Eye: IOP= 10 PUPIL DILATION: Pupils NOT dilated by attic blower for eye screening EDUCATION: Patient received patient education on routine eye care and the following: Diabetic Eye Disease, Glaucoma, Macular Degeneration Patient was informed on how and when results should be received. Patient was instructed on how to contact the appropriate clinical area if results are not received within expected timeframe. Yes /alexandra/ RAYMOND HARDY TELEHEALTH CLINICAL BATTERY FILLER Signed: 06/11/2023 11:45 RAYMOND HARDY [facility]
--- OUTSIDE RECORDS SUMMARY | 2024-05-25 14:38 | XMS_ITS | Encounter Summary ---
Author Name [facility] [place] [facility] [place] Organization [place] Address [address] [place] [address] Care Team Providers Care Quality Process Engineer Name Role Phone TRACE DOUGLAS Primary Care [...] PART A Jul 15, 2014 PART A [id number] Ronda COMBS PATIENT MEDICARE (WNR) MEDICARE (M) PART B Jul 15, 2014 PART B [id number] 37A [phone] Ronda COMBS PATIENT Selected Encounter This section includes the information on record at [place] for the Encounter. Date/Time Encounter Type Encounter Description Reason Pro vider Source Apr 27, 2024 05:32 PM Outpatient Encounter ADMIN PAT ACTIVTIES (MASNONCT) IHE Encounter Template Text not used by [place] [...] of theEncounter. The data comes from all [place] treatment facilities. Test Date/Time Test Type Test Details Facility Name Apr 04, 2024 12:00 AM Laboratory - Chemi stry Order HGA1C BLOOD SP [facility] Apr 04, 2024 12:00 AM Laboratory - Chemi stry Order MICRAL/CREAT PROFILE (STL) URINE YELLOW SP [facility] Apr 04, 2024 12:00 AM Laboratory - Chemi stry Order LIPID PANEL (STL) GREEN LI/HEP BLD/PLAS PLASMA SP [facility] Social History: Smoking Status (Most current) [...] 06:38 PM ORYX ADMIT TOBACCO SCREEN NO [facility] Tobacco Use History This section includes a history of the smoking, or tobacco-related health factors, that were collected on or before the date of the Encounter. The data comes from the [place] facility where the Encounter took place. Date/Time Smoking Status/Tobacco Use Comment F acility Apr 08, 2020 12:19 AM ORYX ADMIT TOBACCO SCREEN NO [facility] Nov 29, 2019 08:47 AM VA-TOBACCO FORMER USER [facility] Nov 29, 2019 08:47 AM VA-TOBACCO QUIT 15 YRS OR MORE [facility] Feb 02, 2014 07:53 PM QUIT TOBACCO >7 YEARS AGO [facility] Advance Directives: All historical and current Section [...] 05, 2014 ADVANCE DIRECTIVE DISCUSSION JAILENE RODRIGUEZ [facility] Encounter Notes: All associated encounter notes This section contains the clinical notes associated to the Encounter. Date/Time Encounter Note(s) Provider Source Apr 27, 2024 05:32 PM ADMINISTRATIVE NOT E: LOCAL TITLE: SCHEDULING NOTE STL STANDARD TITLE: ADMINISTRATIVE NOTE DATE OF NOTE: APR 27, 2024@17:32 ENTRY DATE: APR 27, 2024@17:32:09 AUTHOR: TOBIAS FINK COSIGNER: URGENCY: STATUS: COMPLETED Minimum Scheduling attempts to contact the [place] have been made. RTC/Appt/Consult request will be discontinued after 14 days. Clinic: [facility] PCP YANNICK: Apr First Call to [place] - unsuccessful scheduling: Apr Discontinue date (14 calendar days after letter is mailed): Apr Additional comments: IS CURRENTLY IN THE HOSPITAL WILL CALL BACK WHEN ABLE TO MAKE AN APPT ADDITIONAL RESULTS FROM SCHEDULING ATTEMPTS: Spoke with [place]/Caregiver [place] wants to call back to schedule /alexandra/ MARTELL FINK advanced rn medical inpatient services Signed: 04/27/2024 17:33 TOBIAS FINK [facility]
--- OUTSIDE RECORDS SUMMARY | 2024-05-25 14:38 | XMS_ITS | Encounter Summary ---
Author Name [facility] [place] Organization [facility] [place] Address [address] [place] [address] Care Team Providers Care Water Meter Mechanic Name Role Phone TRACE DOUGLAS Primary Care [...] PART B Jul 15, 2014 PART B [id number] Ronda COMBS PATIENT MEDICARE (WNR) MEDICARE (M) PART A Jul 15, 2014 PART A [id number] 37A [phone] Ronda COMBS PATIENT Selected Encounter This section includes the information on record at [place] for the Encounter. Date/Time Encounter Type Encounter Description Reason Pro vider Source Aug 31, 2023 12:00 AM Outpatient Encounter EVENT (HISTORICAL) IHE Encounter Template Text not used by [place] Plan of Treatment: Future Appointments (+ 6 [...] 20 appointments. The data comes from all [place] treatment facilities. Appointment Date/Time Appointment Type Appointme nt Facility Name Dec 14, 2023 10:00 AM AMBULATORY - SURGERY [facility] Jan 07, 2024 11:30 AM AMBULATORY - MEDICINE [facility] Feb 04, 2024 09:30 AM AMBULATORY - SURGERY [facility] Feb 04, 2024 01:30 PM AMBULATORY - SURGERY [facility] Social History: Smoking Status (Most current) and Tobacco Use (All prior to encounter date) This section includes the most current, and the historical, smoking and tobacco- related health factors from the [place] facility where the Encounter took place. Current Smoking Status This section includes the most current smoking, or tobacco-related health factor, from the [place] facility where the Encounter took place. Date/Time Current Smoking Status Comment Facil ity Nov 20, 2022 06:38 PM ORYX ADMIT TOBACCO SCREEN NO [facility] Tobacco Use History This section includes a history of the smoking, or tobacco-related health factors, that were collected on or before the date of the Encounter. The data comes from the [place] facility where the Encounter took place. Date/Time Smoking Status/Tobacco Use Comment F acility Apr 08, 2020 12:19 AM ORYX ADMIT TOBACCO SCREEN NO [facility] Nov 29, 2019 08:47 AM VA-TOBACCO FORMER USER [facility] Nov 29, 2019 08:47 AM VA-TOBACCO QUIT 15 YRS OR MORE [facility] Feb 02, 2014 07:53 PM QUIT TOBACCO >7 YEARS AGO [facility] Advance Directives: All historical and current Section Date Range: From patient's date of to the date document was created. This section includes ALL of a patient's completed or amended [place] Advance and Rescinded Directives. The entries below indicate that a directive exists for the patient, but an actual copy is not included with this document. The data comes from all [facility]. Date Advance Directives Provider Source Feb 05, 2014 ADVANCE DIRECTIVE DISCUSSION JAILENE RODRIGUEZ [facility]
--- OUTSIDE RECORDS SUMMARY | 2024-05-25 14:39 | XMS_ITS ---
Author Name [facility] [place] Organization [place] Address [address] [place] [address] Care Team Providers Care Forest Ranger Technician Name Role Phone TRACE DOUGLAS Primary [...] PART A Jul 15, 2014 PART A [id number] 37A Ronda COMBS PATIENT MEDICARE (WNR) MEDICARE (M) PART B Jul 15, 2014 PART B [id number] 37A [phone] Ronda COMBS PATIENT Selected Encounter This section includes the information on record at [place] for the Encounter. Date/Time Encounter Type Encounter Description Reason Pro vider Source May 16, 2024 03:56 PM Outpatient Encounter ADMIN PAT ACTIVTIES (MASNONCT) IHE Encounter Template Text not used by [place] Plan of Treatment: Future Appointments (+ 6 [...] of theEncounter. The data comes from all [place] treatment facilities. Test Date/Time Test Type Test Details Facility Name Apr 04, 2024 12:00 AM Laboratory - Chemi stry Order MICRAL/CREAT PROFILE (STL) URINE YELLOW SP [facility] Apr 04, 2024 12:00 AM Laboratory - Chemi stry Order HGA1C BLOOD SP [facility] Apr 04, 2024 12:00 AM Laboratory - Chemi stry Order LIPID PANEL (STL) GREEN LI/HEP BLD/PLAS PLASMA SP [facility] Social History: Smoking Status (Most current) and Tobacco Use (All prior to encounter date) This section includes the most current, and the historical, smoking and tobacco- related health factors from the [place] facility where the Encounter took place. Current Smoking Status This section includes the most current smoking, or tobacco-related health factor, from the [place] facility where the Encounter took place. Date/Time Current Smoking Status Comment Facil ity Nov 20, 2022 06:38 PM ORYX ADMIT TOBACCO SCREEN NO [facility] Tobacco Use History This section includes a history of the smoking, or tobacco-related health factors, that were collected on or before the date of the Encounter. The data comes from the [place] facility where the Encounter took place. Date/Time [...] ALL of a patient's completed or amended [place] Advance and Rescinded Directives. The entries below indicate that a directive exists for the patient, but an actual copy is not included with this document. The data comes from all [place] facilities. Date Advance Directives Provider Source Feb 05, 2014 ADVANCE DIRECTIVE DISCUSSION JENNIFERJAILENE Rosenberg [facility] Encounter Notes: All associated encounter notes This section contains the clinical notes associated to the Encounter. Date/Time Encounter Note(s) Provider Source May 16, 2024 03:56 PM ADMINISTRATIVE NOT E: LOCAL TITLE: CONTACT NOTE STL STANDARD TITLE: ADMINISTRATIVE NOTE DATE OF NOTE: MAY 16, 2024@15:56 ENTRY DATE: MAY 16, 2024@15:56:03 AUTHOR: SAHIL WILLIAMSON EXP COSIGNER: URGENCY: STATUS: COMPLETED CONTACT NOTE STL Has ADDENDA Veterans name and last 4 were used to verify identity Verified Veterans telephone #/Updated telephone number in the system REASON FOR CALL: Other: Reason for call: Fax received from [facility] on 05/16/24 /alexandra/ SAHIL WILLIAMSON ADVANCED JANITOR SUPERVISOR Signed: 05/16/2024 15:56 05/23/2024 ADDENDUM STATUS: COMPLETED Records from [facility] in regards to recent discharge on 05/16/2024 placed in team folder for PCP review. [place] discharged to SNF. /alexandra/ MONICA HARLEY RN, BSN REGISTERED NURSE Signed: 05/23/2024 12:45 SAHIL WILLIAMSON [facility]
--- OUTSIDE RECORDS SUMMARY | 2024-05-25 14:39 | XMS_ITS | Encounter Summary ---
Author Name [facility] [facility] [place] [facility] [place] Address [address] [place] [address] Care Team Providers Care Fibreglass Laminator Name Role Phone TRACE DOUGLAS Primary Care [...] PART A Jul 15, 2014 PART A [id number] [phone] Ronda COMBS PATIENT MEDICARE (WNR) MEDICARE (M) PART B Jul 15, 2014 PART B [id number] Ronda COMBS PATIENT Selected Encounter This section includes the information on record at [place] for the Encounter. Date/Time Encounter Type Encounter Description Reason Provider Source Apr 28, 2024 01:39 PM Outpatient Encounter PM&RS PHYSICIAN ICD-10-CM S82.62XS Disp fx of lateral malleolus of left fibula, sequela STEVEN MOSELEY IHE Encounter Template Text not used by [facility] Assessments - Encounter Diagnoses This section includes the primary and secondary diagnoses documented for the Encounter. Date/Time Primary/Secondary Diagnosis Diagnosis Name Provider Source Apr 28, 2024 01:54 PM PRIMARY Disp fx of lateral malleolus of left fibula, juanis MIKAYLA MOSELEY [facility] Plan of Treatment: Future Appointments (+ 6 months) and Future Tests (+/- 45 days) The Plan of Treatment section includes future care activities for the patient [facility] [place] [facility] This section includes future appointments and future [...] of theEncounter. The data comes from all [place] treatment facilities. Test Date/Time Test Type Test Details Facility Name Apr 04, 2024 12:00 AM Laboratory - Chemi stry Order HGA1C BLOOD [facility] Apr 04, 2024 12:00 AM Laboratory - Chemi stry Order MICRAL/CREAT PROFILE (STL) URINE YELLOW [facility] Apr 04, 2024 12:00 AM Laboratory - Chemi stry Order LIPID PANEL (STL) GREEN LI/HEP BLD/PLAS PLASMA SP [facility] Social History: Smoking Status (Most current) and Tobacco Use (All prior to encounter date) This section includes the most current, and the historical, smoking and tobacco- related health factors from the [place] facility where the Encounter took place. Current Smoking Status This section includes the most current smoking, or tobacco-related health factor, from the [place] facility where the Encounter took place. Date/Time Current Smoking Status Comment Facil ity Apr 15, 2023 11:30 AM VA-TOBACCO FORMER USER [facility] Tobacco Use History This section includes a history of the smoking, or tobacco-related health factors, that were collected on or before the date of the Encounter. The data comes from the [place] facility where the Encounter took place. Date/Time Smoking Status/Tobacco Use Comment F acility Apr 15, 2023 11:30 AM [place]-TOBACCO QUIT 15 YRS OR MORE [facility] Dec 31, 2021 10:30 AM VA-TOBACCO FORMER USER [facility] Dec 31, 2021 10:30 AM VA-TOBACCO QUIT 15 YRS OR MORE [facility] Dec 02, 2020 01:00 PM VA-TOBACCO FORMER USER [facility] Dec 02, 2020 01:00 PM VA-TOBACCO QUIT 15 YRS OR MORE [facility] Jul 25, 2018 09:15 AM VA-TOBACCO FORMER USER [facility] Jul 25, 2018 09:15 AM VA-TOBACCO QUIT 15 YRS OR MORE [facility] Jul 19, 2017 11:02 AM QUIT TOBACCO >7 YEARS AGO [facility] Mar 16, 2017 11:32 AM QUIT TOBACCO >7 YEARS AGO [facility] Dec 08, 2016 01:28 PM LIFETIME NON-USER OF TOBACCO [facility] Feb 06, 2016 01:06 PM LIFETIME NON-USER OF TOBACCO [facility] Jan 07, 2015 09:04 AM QUIT TOBACCO >7 YEARS AGO [facility] Feb 06, 2014 02:33 PM LIFETIME NON-USER OF TOBACCO [facility] Sep 26, 2013 10:45 AM QUIT TOBACCO >7 YEARS AGO [facility] Sep 20, 2012 02:07 PM QUIT TOBACCO >7 YEARS AGO [facility] Advance Directives: All historical and current Section Date Range: From patient's date of to the date document was created. This section includes ALL of a patient's completed or amended [place] Advance and Rescinded Directives. The entries below indicate that a directive exists for the patient, but an actual copy is not included with this document. The data comes from all [place] facilities. Date Advance Directives Provider Source Feb 05, 2014 ADVANCE DIRECTIVE DISCUSSION JAILENE RODRIGUEZ [facility] Encounter Notes: All associated encounter notes This section contains the clinical notes associated to the Encounter. Date/Time Encounter Note(s) Provider Source Apr 28, 2024 01:40 PM PHYSICAL MEDICINE REHAB NOTE: LOCAL TITLE: [facility] STANDARD TITLE: PHYSICAL MEDICINE REHAB NOTE DATE OF NOTE: APR 28, 2024@13:40 ENTRY DATE: APR 28, 2024@13:40:08 AUTHOR: MIKAYLA MOSELEY EXP COSIGNER: URGENCY: STATUS: COMPLETED Huddle review: 73-year-old male with PMX Difficulty with ambulation, chronic low back pain, hypertension, type II diabetes, hyperlipidemia, restless leg syndrome, hypothyroidism, chronic osteoarthritis and pain, neuropathic pain, urinary incontinence, intertrigo, obstructive sleep apnea, onychomycosis per DC summary 11/23/2022. To [facility] 04/22/24 secondarily to fall from sitting while asleep in chair. Found with distal displaced left fibular fracture. 04/24 underwent ORIF left ankle. Nonweightbearing left lower extremity ASA 81 mg twice daily DVT prophylaxis at discharge Maintain surgical dressing until 3-week follow-up Dr. Morris, orthopedics at [facility] 05/16/202404/27 geriatric trauma note Social work working on dual placement for him and due to separate medical concern. likely to need hospice. 03/25 CBC stable and BMP Therapy 04/27 PT. min a bed mobility, mod to max a stand transfer, two person transfer OT. Mod a grooming, Max a toileting and bed mobility Impression: Like to benefit from inpatient rehab though unclear prior functional status as well as ADL needs. *Request either PT or OT initial consult to better assess prior functional level to a better idea of current needs in rehab setting A total of 15 minutes was spent on the date of this encounter including chart review, care planning and documentation in the medical record. Please note that this dictation was completed with computer voice recognition software, often unanticipated grammatical, syntax and other interpretive errors are inadvertently transcribed by the computer software. Please disregard these errors. /es/ MIKAYLA MOSELEY MD, STAFF OVEN HEATER Signed: 04/28/2024 13:54 Receipt Acknowledged By: 05/01/2024 12:33 /alexandra/ ERIN BERGER MSN, PHD RN REGISTERED NURSE MIKAYLA MOSELEY [facility]
--- OUTSIDE RECORDS SUMMARY | 2024-05-25 14:39 | XMS_ITS ---
Author Name [facility] [place] [facility] [place] [facility] [place] Address [address] [place] [id number] Care Team Providers Care Mason Foreman/Superintendant Name Role Phone TRACE DOUGLAS Primary Care [...] PART A Jul 15, 2014 PART A [id number] [phone] Ronda COMBS PATIENT MEDICARE (WNR) MEDICARE (M) PART B Jul 15, 2014 PART B [id number] [phone] Ronda COMBS PATIENT Selected Encounter This section includes the information on record at [place] for the Encounter. Date/Time Encounter Type Encounter Description Reason Provider Source May 02, 2024 04:49 PM Outpatient Encounter PM&RS PHYSICIAN ICD-10-CM S82.62XS Disp fx of lateral malleolus of left fibula, CAMILO Montesinos IHRonda Encounter Template Text not used by VA Assessments - Encounter Diagnoses This section includes the primary and secondary diagnoses documented for the Encounter. Date/Time Primary/Secondary Diagnosis Diagnosis Name Provider Source May 02, 2024 04:56 PM PRIMARY Disp fx of lateral malleolus of left fibula, juanis SLOANCAMILO HANNA [facility] Plan of Treatment: Future Appointments (+ 6 months) and Future Tests (+/- 45 days) The Plan of Treatment section includes future care activities for the patient [facility] [place] [facility] This section includes future appointments and future [...] of theEncounter. The data comes from all [place] treatment facilities. Test Date/Time Test Type Test Details Facility Name Apr 04, 2024 12:00 AM Laboratory - Chemi stry Order MICRAL/CREAT PROFILE (STL) URINE YELLOW [facility] Apr 04, 2024 12:00 AM Laboratory - Chemi stry Order HGA1C BLOOD [facility] Apr 04, 2024 12:00 AM Laboratory - Chemi stry Order LIPID PANEL (STL) GREEN LI/HEP BLD/PLAS PLASMA SP [facility] Social History: Smoking Status (Most [...] Facil ity Apr 15, 2023 11:30 AM [place]-TOBACCO FORMER USER [facility] Tobacco Use History This section includes a history of the smoking, or tobacco-related health factors, that were collected on or before the date of the Encounter. The data comes from the [place] facility where the Encounter took place. Date/Time Smoking Status/Tobacco Use Comment F acility Apr 15, 2023 11:30 AM [place]-TOBACCO QUIT 15 YRS OR MORE [facility] Dec 31, 2021 10:30 AM [place]-TOBACCO FORMER USER [facility] Dec 31, 2021 10:30 AM VA-TOBACCO QUIT 15 YRS OR MORE [facility] Dec 02, 2020 01:00 PM VA-TOBACCO FORMER USER [facility] Dec 02, 2020 01:00 PM VA-TOBACCO QUIT 15 YRS OR MORE [facility] Jul 25, 2018 09:15 AM VA-TOBACCO FORMER USER [facility] Jul 25, 2018 09:15 AM VA-TOBACCO QUIT 15 YRS OR MORE [facility] Jul 19, 2017 11:02 AM QUIT TOBACCO >7 YEARS AGO [facility] Mar 16, 2017 11:32 AM QUIT TOBACCO >7 YEARS AGO [facility] Dec 08, 2016 01:28 PM LIFETIME NON-USER OF TOBACCO [facility] Feb 06, 2016 01:06 PM LIFETIME NON-USER OF TOBACCO [facility] Jan 07, 2015 09:04 AM QUIT TOBACCO >7 YEARS AGO [facility] Feb 06, 2014 02:33 PM LIFETIME NON-USER OF TOBACCO [facility] Sep 26, 2013 10:45 AM QUIT TOBACCO >7 YEARS AGO [facility] Sep 20, 2012 02:07 PM QUIT TOBACCO >7 YEARS AGO [facility] Advance Directives: All historical and current Section Date Range: From patient's date of to the date document was created. This section includes ALL of a patient's completed or amended [place] Advance and Rescinded Directives. The entries below indicate that a directive exists for the patient, but an actual copy is not included with this document. The data comes from all [place] facilities. Date Advance Directives Provider Source Feb 05, 2014 ADVANCE DIRECTIVE DISCUSSION JAILENE RODRIGUEZ [facility] Encounter Notes: All associated encounter notes This section contains the clinical notes associated to the Encounter. Date/Time Encounter Note(s) Provider Source May 02, 2024 04:49 PM PHYSICAL MEDICINE REHAB NOTE: LOCAL TITLE: [facility] STANDARD TITLE: PHYSICAL MEDICINE REHAB NOTE DATE OF NOTE: MAY 02, 2024@16:49 ENTRY DATE: MAY 02, 2024@16:49:49 AUTHOR: CAMILO LLANOS EXP COSIGNER: URGENCY: STATUS: COMPLETED Pt being followed by PMR for possible [facility] inpatient rehab admission s/p fall with bimalleolar equivalent left ankle fracture s/p ORIF, NWB LLE. Surgery f/u 05/16/24. OT (04/27): Required min A verbal cues to maintain WB precautions. Mod A grooming. Max A toileting. Max A bed mobility. Mod A of 2 for toilet tranfer. Recommend SNF. PT (04/27): Mod to max A transfers. Recommend inpatient rehab. Pt would not be expected to make functional progress until WB status changes. Skilled admission vs NH placement until WB status changes. /alexandra/ CAMILO LLANOS STAFF PHYSICIAN Signed: 05/02/2024 16:56 Receipt Acknowledged By: 05/03/2024 11:15 /alexandra/ ERIN BERGER MSN, PHD RN REGISTERED NURSE CAMILO LLANOS [facility]
--- OUTSIDE RECORDS SUMMARY | 2024-05-25 14:39 | XMS_ITS | Encounter Summary ---
Author Name [facility] [place] [facility] [place] [facility] [place] Address [address] [place] [address] Care Team Providers Care Cotton Ginner Helper Name Role Phone TRACE DOUGLAS Primary Care [...] PART B Jul 15, 2014 PART B [id number] [phone] Ronda COMBS PATIENT MEDICARE (WNR) MEDICARE (M) PART A Jul 15, 2014 PART A [id number] [phone] Ronda COMBS PATIENT Selected Encounter This section includes the information on record at [place] for the Encounter. Date/Time Encounter Type Encounter Description Reason Provider Source May 08, 2024 09:03 AM Outpatient Encounter PM&RS PHYSICIAN ICD-10-CM S82.62XS Disp fx of lateral malleolus of left fibula, sequela STEVEN MOSELEY IHE Encounter Template Text not used by VA Assessments - Encounter Diagnoses This section includes the primary and secondary diagnoses documented for the Encounter. Date/Time Primary/Secondary Diagnosis Diagnosis Name Provider Source May 08, 2024 09:16 AM PRIMARY Disp fx of lateral malleolus of left fibula, juanis MIKAYLA MOSELEY [facility] Plan of Treatment: Future Appointments (+ 6 months) and Future Tests (+/- 45 days) The Plan of Treatment section includes future care activities for the patient from [facility] [place] [facility]. This section includes future appointments [...] of theEncounter. The data comes from all [place] treatment facilities. Test Date/Time Test Type Test Details Facility Name Apr 04, 2024 12:00 AM Laboratory - Chemi stry Order HGA1C BLOOD [facility] Apr 04, 2024 12:00 AM Laboratory - Chemi stry Order MICRAL/CREAT PROFILE (STL) URINE YELLOW [facility] Apr 04, 2024 12:00 AM Laboratory - Chemi stry Order LIPID PANEL (STL) GREEN LI/HEP BLD/PLAS PLASMA SP [facility] Social History: Smoking Status (Most [...] 15, 2023 11:30 AM VA-TOBACCO FORMER USER [facility] Tobacco Use History This section includes a history of the smoking, or tobacco-related health factors, that were collected on or before the date of the Encounter. The data comes from the [place] facility where the Encounter took place. Date/Time Smoking Status/Tobacco Use Comment F acility Apr 15, 2023 11:30 AM [place]-TOBACCO QUIT 15 YRS OR MORE [facility] Dec 31, 2021 10:30 AM VA-TOBACCO FORMER USER [facility] Dec 31, 2021 10:30 AM VA-TOBACCO QUIT 15 YRS OR MORE [facility] Dec 02, 2020 01:00 PM VA-TOBACCO FORMER USER [facility] Dec 02, 2020 01:00 PM VA-TOBACCO QUIT 15 YRS OR MORE [facility] Jul 25, 2018 09:15 AM VA-TOBACCO FORMER USER [facility] Jul 25, 2018 09:15 AM VA-TOBACCO QUIT 15 YRS OR MORE [facility] Jul 19, 2017 11:02 AM QUIT TOBACCO >7 YEARS AGO [facility] Mar 16, 2017 11:32 AM QUIT TOBACCO >7 YEARS AGO [facility] Dec 08, 2016 01:28 PM LIFETIME NON-USER OF TOBACCO [facility] Feb 06, 2016 01:06 PM LIFETIME NON-USER OF TOBACCO [facility] Jan 07, 2015 09:04 AM QUIT TOBACCO >7 YEARS AGO [facility] Feb 06, 2014 02:33 PM LIFETIME NON-USER OF TOBACCO [facility] Sep 26, 2013 10:45 AM QUIT TOBACCO >7 YEARS AGO [facility] Sep 20, 2012 02:07 PM QUIT TOBACCO >7 YEARS AGO [facility] Advance Directives: All historical and [...] DIRECTIVE DISCUSSION JAILENE RODRIGUEZ [facility] Encounter Notes: All associated encounter notes This section contains the clinical notes associated to the Encounter. Date/Time Encounter Note(s) Provider Source May 08, 2024 09:03 AM PHYSICAL MEDICINE REHAB NOTE: LOCAL TITLE: [facility] STANDARD TITLE: PHYSICAL MEDICINE REHAB NOTE DATE OF NOTE: MAY 08, 2024@09:03 ENTRY DATE: MAY 08, 2024@09:03:24 AUTHOR: MIKAYLA MOSELEY COSIGNER: URGENCY: STATUS: COMPLETED PMR STL Has ADDENDA [facility] Review: Last review May 03: 73-year-old male with PMX Difficulty with ambulation, chronic low back pain, hypertension, type II diabetes, hyperlipidemia, restless leg syndrome, hypothyroidism, chronic osteoarthritis and pain, neuropathic pain, urinary incontinence, intertrigo, obstructive sleep apnea, onychomycosis per DC summary 11/23/2022. To [facility] 04/22/24 secondarily to fall from sitting while asleep in chair. Found with distal displaced left fibular fracture. 04/24 underwent ORIF left ankle. Nonweightbearing left lower extremity ASA 81 mg twice daily DVT prophylaxis at discharge Maintain surgical dressing until 3-week follow-up Dr. Morris, orthopedics at [facility] 05/16/2024 Requested: -Please send new therapy notes. Last recieved 04/27. Need to show tolerance to therapy & participation . -May benefit trial of skilled inpatient rehab but not expected to make significant gains until weightbearing. -Need to be sure willing for [facility] since it appears his is currently on hospice and sharing a room and note 04/28 Received: 05/07 geriatric trauma -Note stating excepting facility for long-term care pending -Continues in short leg splint, nonweightbearing. Follow-up May [address] [facility] [address]. Morris 05/07 Ortho trauma Transition to 81 mg aspirin twice daily at discharge Follow-up Ortho 05/22 [facility], Dr. Rudd Therapy 05/07 PT. transferred distal supervision, gait 30 feet WW, distant supervision Rec SNF 05/05 OT. Mod a bed mobility, sit to stand, max transfer. Unable to pivot on foot. Cognition impaired with delayed response 05/04 PT. [place] x 4, pivot slowly on RLE, unable to lift left foot Rec. See stable and ready for inpatient rehab Please clarify if follow-up is to be on May 16 versus May 22. No clear indication to see both Trauma and Ortho trauma A total of 12 minutes was spent on the date of this encounter including chart review, care planning and documentation in the medical record. Please note that this dictation was completed with computer voice recognition software, often unanticipated grammatical, syntax and other interpretive errors are inadvertently transcribed by the computer software. Please disregard these errors. /alexandra/ MIKAYLA MOSELEY MD, STAFF SALES PROJECT MANAGER Signed: 05/08/2024 09:16 05/08/2024 ADDENDUM STATUS: COMPLETED left several vm, looked in EPIC. Vet going to [facility] on medicare /alexandra/ ERIN BERGER MSN, PHD RN REGISTERED NURSE Signed: 05/08/2024 14:[address] [facility]
--- OUTSIDE RECORDS SUMMARY | 2024-05-25 14:39 | XMS_ITS | Encounter Summary ---
Author Name [facility] [facility] [place] Address [address] [place] [address] Care Team Providers Care Training And Development Rep Name Role Phone TRACE DOUGLAS Primary Care [...] PART A Jul 15, 2014 PART A [id number] Ronda COMBS PATIENT MEDICARE (WNR) MEDICARE (M) PART B Jul 15, 2014 PART B [id number] [id number] Ronda COMBS PATIENT Selected Encounter This section includes the information on record at [place] for the Encounter. Date/Time Encounter Type Encounter Description Reason Provider Source May 03, 2024 03:38 PM Outpatient Encounter PM&RS PHYSICIAN ICD-10-CM S82.62XS Disp fx of lateral malleolus of left fibula, sequela STEVEN MOSELEY IHE Encounter Template Text not used by [facility] Assessments - Encounter Diagnoses This section includes the primary and secondary diagnoses documented for the Encounter. Date/Time Primary/Secondary Diagnosis Diagnosis Name Provider Source May 03, 2024 03:49 PM PRIMARY Disp fx of lateral malleolus of left fibula, juanis MIKAYLA MOSELEY [facility] Plan of Treatment: Future Appointments (+ 6 months) and Future Tests (+/- 45 days) The Plan of Treatment section includes future care activities for the patient from all [place] [facility]. This section includes future appointments and [...] of theEncounter. The data comes from all [place] treatment facilities. Test Date/Time Test Type Test Details Facility Name Apr 04, 2024 12:00 AM Laboratory - Chemi stry Order HGA1C BLOOD [facility] Apr 04, 2024 12:00 AM Laboratory - Chemi stry Order MICRAL/CREAT PROFILE (STL) URINE YELLOW SP [facility] Apr 04, 2024 12:00 AM Laboratory - Chemi stry Order LIPID PANEL (STL) GREEN LI/HEP BLD/PLAS PLASMA SP [facility] Social History: Smoking Status (Most current) and Tobacco Use (All prior to encounter date) This section includes the most current, and the historical, smoking and tobacco- related health factors from the [place] facility where the Encounter took place. Current Smoking Status This section includes the most current smoking, or tobacco-related health factor, from the [place] facility where the Encounter took place. Date/Time Current Smoking Status Comment Facil ity Apr 15, 2023 11:30 AM [place]-TOBACCO QUIT 15 YRS OR MORE [facility] Tobacco Use History This section includes a history of the smoking, or tobacco-related health factors, that were collected on or before the date of the Encounter. The data comes from the [place] facility where the Encounter took place. Date/Time Smoking Status/Tobacco Use Comment F acility Apr 15, 2023 11:30 AM [place]-TOBACCO QUIT 15 YRS OR MORE [facility] Dec 31, 2021 10:30 AM VA-TOBACCO FORMER USER [facility] Dec 31, 2021 10:30 AM VA-TOBACCO QUIT 15 YRS OR MORE [facility] Dec 02, 2020 01:00 PM VA-TOBACCO FORMER USER [facility] Dec 02, 2020 01:00 PM VA-TOBACCO QUIT 15 YRS OR MORE [facility] Jul 25, 2018 09:15 AM VA-TOBACCO FORMER USER [facility] Jul 25, 2018 09:15 AM VA-TOBACCO QUIT 15 YRS OR MORE [facility] Jul 19, 2017 11:02 AM QUIT TOBACCO >7 YEARS AGO [facility] Mar 16, 2017 11:32 AM QUIT TOBACCO >7 YEARS AGO [facility] Dec 08, 2016 01:28 PM LIFETIME NON-USER OF TOBACCO [facility] Feb 06, 2016 01:06 PM LIFETIME NON-USER OF TOBACCO [facility] Jan 07, 2015 09:04 AM QUIT TOBACCO >7 YEARS AGO [facility] Feb 06, 2014 02:33 PM LIFETIME NON-USER OF TOBACCO [facility] Sep 26, 2013 10:45 AM QUIT TOBACCO >7 YEARS AGO [facility] Sep 20, 2012 02:07 PM QUIT TOBACCO >7 YEARS AGO [facility] Advance Directives: All historical and current Section Date Range: From patient's date of to the date document was created. This section includes ALL of a patient's completed or amended [place] Advance and Rescinded Directives. The entries below indicate that a directive exists for the patient, but an actual copy is not included with this document. The data comes from all [place] facilities. Date Advance Directives Provider Source Feb 05, 2014 ADVANCE DIRECTIVE DISCUSSION JAILENE RODRIGUEZ [facility] Encounter Notes: All associated encounter notes This section contains the clinical notes associated to the Encounter. Date/Time Encounter Note(s) Provider Source May 03, 2024 03:40 PM PHYSICAL MEDICINE REHAB NOTE: LOCAL TITLE: [facility] STANDARD TITLE: PHYSICAL MEDICINE REHAB NOTE DATE OF NOTE: MAY 03, 2024@15:40 ENTRY DATE: MAY 03, 2024@15:40:17 AUTHOR: MIKAYLA MOSELEY EXP COSIGNER: URGENCY: STATUS: COMPLETED Huddle review: 73-year-old male with PMX Difficulty with ambulation, chronic low back pain, hypertension, type II diabetes, hyperlipidemia, restless leg syndrome, hypothyroidism, chronic osteoarthritis and pain, neuropathic pain, urinary incontinence, intertrigo, obstructive sleep apnea, onychomycosis per [place] summary 11/23/2022. To [facility] 04/22/24 secondarily to fall from sitting while asleep in chair. Found with distal displaced left fibular fracture. 04/24 underwent ORIF left ankle. Nonweightbearing left lower extremity ASA 81 mg twice daily DVT prophylaxis at discharge Maintain surgical dressing until 3-week follow-up Dr. Morris, orthopedics at [facility] 05/16/202404/28 Pt co-habit in room with that is on hospice. Update: 05/02 trauma service Constipated. Ordered suppository No new labs Diabetes. Holding metformin and glipizide Therapy Resent notes from 04/27 Impression: -Please send new therapy notes. Last recieved 04/27. Need to show tolerance to therapy & participation . -May benefit trial of skilled inpatient rehab but not expected to make significant gains until weightbearing. -Need to be sure willing for [facility] since it appears his is currently on hospice and sharing a room and note 04/28 A total of 8 minutes was spent on the date of this encounter including chart review, care planning and documentation in the medical record. Please note that this dictation was completed with computer voice recognition software, often unanticipated grammatical, syntax and other interpretive errors are inadvertently transcribed by the computer software. Please disregard these errors. /es/ MIKAYLA MOSELEY MD, STAFF CERTIFIED VEHICLE FIRE INVESTIGATOR Signed: 05/03/2024 15:49 MIKAYLA MOSELEY [facility]
[2024-05-25 14:49] LABS: Basophils Absolute Auto 0.07 K/mm3 (0.00-0.10); Basophils Percent Auto 0.8 % (0.0-1.0); Eosinophils Absolute Auto 0.43 K/mm3 (0.02-0.50); Eosinophils Percent Auto 5.1 % (1.0-6.0); Hematocrit 41.1 % (37.0-46.0); Hemoglobin 14.7 g/dL (12.4-15.3); Immature Granulocyte Absolute 0.03 K/mm3 (0.00-0.00); Immature Granulocyte Percent A 0.4 % (0.0-0.0); Lymphocytes Absolute Auto 2.73 K/mm3 (1.10-4.50); Lymphocytes Percent Auto 32.7 % (18.0-42.0); Mean Corpuscular HGB Conc 35.8 g/dL (32-36); Mean Corpuscular Hemoglobin 31.5 pg (27.0-31.0); Mean Corpuscular Volume 88.2 fL (78.0-102.0); Mean Platelet Volume 9.3 fl (8.7-11.0); Monocytes Absolute Auto 0.52 K/mm3 (0.10-0.90); Monocytes Percent Auto 6.2 % (2.0-11.0); Neutrophils Absolute Auto 4.57 K/mm3 (1.70-7.20); Neutrophils Percent Auto 54.8 % (50.0-70.0); Platelet Count Result 281 K/mm3 (150-420); Red Blood Count 4.66 M/mm3 (4.70-6.10); Red Cell Distribution Width 12.9 % (11.6-14.4); White Blood Count 8.4 K/mm3 (4.8-10.8)
[2024-05-25 15:19] LABS: Anion Gap 12 mmol/L (4-12); Blood Urea Nitrogen 25 mg/dL (7-18); Calcium 9.4 mg/dL (8.5-10.1); Carbon Dioxide 29 mmol/L (21-32); Chloride 94 mmol/L (98-108); Estimated Glomerular Filt Rate 52; Glucose 56 mg/dL (70-99); Osmolality Calculated 282 mOsm/kg (285-295); Potassium 3.6 mmol/L (3.5-5.1); Sodium 135 mmol/L (136-145)
== END 2024-05-25 14:29 | disposition home or self-care (01) ==
LOC: CHSLAB 14:33
PROVIDERS: PCP Family Medicine; Visit Provider Family Medicine
DX: D64.9 Anemia, unspecified (principal); E11.9 Type 2 diabetes mellitus without complications; R53.1 Weakness
CPT/HCPCS: 36415; 80048; 85025